=== PATIENT | male | born 1950 | race Caucasian/White ===

== ENCOUNTER 2017-06-07 10:42 | Day surgery (SDC) | payer MEDICARE ==
[2017-06-04 18:06] VITALS: BMI 23.8
[~2017-06-07 10:42] MED LIST: ALBUTEROL NEB (CONC) 2.5 MG/0.5 ML INHALATION ONE; ATROPINE SULFATE 0.4 MG/ML 1 ML VIAL IM ONE; LACTATED RINGERS 1,000 ML IV ONE; LACTATED RINGERS 1,000 ML IV SCH; LIDOCAINE 1% 20 ML VIAL (10MG/ML) FOR IV START INTRADERMA PRN; LIDOCAINE 2% (PF) 20 MG/ML 10ML INHALATION ONE
[2017-06-07 11:17] VITALS: RESP 18; TEMP 97.9
[2017-06-07] MEDS ORDERED: LIDOCAINE 1% INJ 10MG/ML (20 ML MDV) ONE (11:56)
[2017-06-07] MEDS ORDERED: GLYCOPYRROLATE 0.2 MG/ML 2 ML VIAL ONE (11:56)
[2017-06-07] MEDS ORDERED: KETAMINE 10 MG/ML 20 ML VIAL ONE (11:56)
[2017-06-07] MEDS ORDERED: MIDAZOLAM 2 MG/2 ML VIAL ONE (11:56)
[2017-06-07] MEDS ORDERED: PROPOFOL 10 MG/ML 20 ML VIAL IV ONE (11:56)
[2017-06-07] MEDS ORDERED: fentaNYL (PF) 50 MCG/ML 2 ML AMP ONE (11:56)
[2017-06-07] MEDS ORDERED: LIDOCAINE 2% INJ 20 MG/ML INTRATRACH ONE (12:11)
[2017-06-07 12:57] VITALS: BP 126/78; PULSE 76
[2017-06-07 15:06] LABS: RBC, Body Fluid 4445 /uL
--- NOTE | 2017-06-07 15:54 | PCN ---
PROCEDURE PERFORMED: Bronchoscopy, airway examination, therapeutic lavage, BAL. PREOP DIAGNOSIS: Retained secretions, severe asthma. POSTOP DIAGNOSIS: Retained secretions, severe asthma. The patients procedure was done in room number one. There was general anesthesia and unconscious sedation was provided by the FORENSIC SOCIAL WORKER, Kenzie Moy. The procedure was done by myself and Dr. Summer Nazario. We did a BAL right middle lobe. There was informed consent. There was universal time out After the patient was adequately sedated and being fully monitored. Bronchoscope was inserted into the left nostril. It passed through the left nasopharynx into the oropharynx and into the hypopharynx. The hypopharyngeal structures including anterior commissure, true chords, false chords, arytenoids , piriform sinuses, right and left vallecula, epiglottis all appear normal. There was some secretions noted to be pooling in the hypopharynx. After topicalization,the bronchoscope was pushed through the glottic opening into the trachea. Trachea appeared relatively normal. There was a saber sheath appearance to the trachea. Tracheocarina was sharp. Secretion were suctioned from the trachea. They were purulent looking. Next after topicalization of the right main stem and left mainstem, the right upper lobe and its three segments, the right middle lobe and its two segments, right lower lobe and its five segments, the left upper lobe proper and its two segments, the lingula and its two segments and the left lower lobe and its four segments all evaluated. There was moderate erythema and hyperemia. There was some mucosal friability. No dominant mass or tumor. There was significant secretions noted throughout. The opening to the right middle lobe had a fish mouth appearance suggesting the possibility of right middle lobe syndrome. The bronchoscope was wedge into the right middle lobe. BAL took place. The patient tolerated the procedure well. Afterwards, additional saline was used to suction the additional secretions. The secretions were somewhat thickened and viscid. They were removed. The bronchoscope was withdrawn. There were no immediate complications. NATE
== END 2017-06-07 13:29 | disposition home or self-care (01) ==
LOC: ORWHC2ENDO 10:42
PROVIDERS: ATTEND Internal Medicine Critical Care Medicine
DX: J45.909 Unspecified asthma, uncomplicated (principal); J44.9 Chronic obstructive pulmonary disease, unspecified; J47.9 Bronchiectasis, uncomplicated; F17.200 Nicotine dependence, unspecified, uncomplicated; K21.9 Gastro-esophageal reflux disease without esophagitis; G47.33 Obstructive sleep apnea (adult) (pediatric); Z79.899 Other long term (current) drug therapy
CPT/HCPCS: 94640; 87798 ×4; 87496; 87498; 87529 ×2; 88108; 88305; 89050; 87252; 87502 ×2; 87070; 87205; 87116; 87102; 87206; 31624; J2001 ×3; J2250; J0461; J3010; J2704

== ENCOUNTER 2018-05-10 06:39 | Day surgery (SDC) | payer MEDICARE ==
[2018-05-06 11:55] VITALS: BMI 23.8
[~2018-05-10 06:39] MED LIST changes: -ALBUTEROL NEB (CONC) 2.5 MG/0.5 ML INHALATION ONE; -ATROPINE SULFATE 0.4 MG/ML 1 ML VIAL IM ONE; -LACTATED RINGERS 1,000 ML IV ONE; -LIDOCAINE 2% (PF) 20 MG/ML 10ML INHALATION ONE
[2018-05-10 07:11] VITALS: TEMP 98.2
[2018-05-10 07:18] LABS: Glucose,Whole Blood 99 mg/dL (75-99)
[2018-05-10] MEDS ORDERED: LIDOCAINE 1% INJ 10MG/ML (20 ML MDV) ONE (07:45)
[2018-05-10] MEDS ORDERED: PROPOFOL 10 MG/ML 20 ML VIAL IV ONE (07:45)
--- NOTE | 2018-05-10 07:51 | P.GSHP ---
History of Present Illness H&P Date: 05/10/18 Chief Complaint: Colon cancer screening Patient is here today for colonoscopy. Last colonoscopy 7 years ago. He is somewhat concerned his bowel prep may not be adequate. Denies rectal bleeding or melena. No family history of colon cancer. Past Medical History Past Medical History: COPD, GERD/Reflux, Musculoskeletal Disorder, Osteoarthritis (OA), Prostate Disorder, Sleep Apnea/CPAP/BIPAP Additional Past Medical History / Comment(s): HX OF DIVERTICULITIS. CHRONIC BACK PAIN, DDD; HAS NERVE DAMAGE. USES C-PAP MACHINE. "HAS ALOT OF FLUID IN LUNGS, CONSTANT." STEROID INJ IN NECK Q3 MONTHS, LAST WAS 6 WKS AGO. History of Any Multi-Drug Resistant Organisms: None Reported Past Surgical History: Back Surgery, Hernia Repair, Orthopedic Surgery, Tonsillectomy Additional Past Surgical History / Comment(s): BACK SURGERY W/ RODS & SCREWS; NECK FUSION. MANSI KNEE PROC. VARICOCELE SURG, MANSI INGUINAL HERNIA REPAIR. BRONCHOSCOPY. COLONOSCOPIES. PAIN PROCEDURES Q3 MONTHS. Past Anesthesia/Blood Transfusion Reactions: No Reported Reaction Additional Past Alcohol Use History / Comment(s): SMOKED 1-2 PPD SINCE 1964, NOW OCC USE - LESS THAN 1 PK PER WEEK. - Past Family History Mother Family Medical History: No Reported History Medications and Allergies Home Medications Medication Instructions Recorded Confirmed Type Albuterol Updraft (Unknown Dose) 1 dose INHALATION DIRECTED PRN 04/06/1604/22 History Cholecalciferol [Vitamin D3] 1,000 unit PO DAILY 04/06/16 05/10/18 History Citalopram Hydrobromide [CeleXA] 20 mg PO PC-LUNCH 04/06/16 05/10/18 History Ferrous Sulfate [Feosol] 325 mg PO 1200 04/06/16 05/10/18 History Mometasone/Formoterol [Dulera 200 2 puff INHALATION BID 04/06/16 05/10/18 History Mcg/5 Mcg Inhaler] Montelukast [Singulair] 10 mg PO HS PRN 04/06/16 05/10/18 History Multivitamins, Thera [Multivitamin] 0.5 tab PO DAILY 04/06/16 05/10/18 History Pantoprazole Sodium [Protonix] 40 mg PO AC-SUPPER 04/06/16 05/10/18 History Psyllium Husk (with Sugar) 6 gm PO DAILY PRN 04/06/16 05/10/18 History [Metamucil Powder] Voltaren Topical Cream 1 applic TOPICAL DIRECTED PRN 04/06/16 05/10/18 History fentaNYL 50MCG/HR PATCH [Duragesic 50 mcg TRANSDERM Q72H 04/06/16 05/10/18 History 50Mcg/Hr Patch] Albuterol Sulfate [Proair Hfa] 1 - 2 puff INHALATION Q6HR PRN 06/04/17 05/10/18 History Allergies Allergy/AdvReac Type Severity Reaction Status Date / Time No Known Allergies Allergy Verified 05/06/18 11:29 Surgical - Exam Vital Signs Temp Pulse Resp BP Pulse Ox 98.2 F 76 14 134/79 97 05/10/18 07:09 05/10/18 07:09 05/10/18 07:09 05/10/18 07:09 05/10/18 07:09 Assessment and Plan (1) Colon cancer screening Narrative/Plan: Will proceed with colonoscopy at this time. Current Visit: Yes Status: Acute Code(s): Z12.11 - ENCOUNTER FOR SCREENING FOR MALIGNANT NEOPLASM OF COLON SNOMED Code(s): 392104934
--- NOTE | 2018-05-10 08:11 | P.PCN ---
Date of Procedure: 05/10/18 Procedure(s) Performed: PREOPERATIVE DIAGNOSIS: Colon cancer screening POSTOPERATIVE DIAGNOSIS: Descending colon polyp, diverticulosis, poor prep PROCEDURE: Colonoscopy with snare polypectomy ANESTHESIA: MAC SURGEON: Kenneth Lerner M.D. SPECIMENS: Polyp ENDOSCOPIC PROCEDURE: The patient was placed on the endoscopy table in the left decubitus position. The Olympus colonoscope was inserted into the anus and passed under direct visualization to the base of the cecum. The appendiceal orifice was visualized. From that point the scope was slowly withdrawn inspecting all surfaces carefully. There were no neoplastic inflammatory or polypoid lesions throughout the cecum, ascending, and transverse colon. In the descending colon a small polyp was removed using the snare technique. The remainder of the descending sigmoid and rectum appeared normal. There was mild left-sided diverticulosis present. Overall the patient' s prep was suboptimal with retained liquid and semisolid stool seen scattered throughout. I would estimate that approximately 60% of the mucosal surfaces were visualized. Digital rectal examination was normal. The patient was taken to the recovery room in stable condition per anesthesia guidelines. RECOMMENDATIONS: Await biopsy results. Consider short-term follow-up colonoscopy.
[2018-05-10 08:15] VITALS: RESP 16
[2018-05-10 08:32] VITALS: BP 106/68; PULSE 72
== END 2018-05-10 09:28 | disposition home or self-care (01) ==
LOC: ORWHC2ENDO 06:39
PROVIDERS: ATTEND Surgery
DX: Z12.11 Encounter for screening for malignant neoplasm of colon (principal); K63.5 Polyp of colon; K57.30 Diverticulosis of large intestine without perforation or abscess without bleeding; J44.9 Chronic obstructive pulmonary disease, unspecified; K21.9 Gastro-esophageal reflux disease without esophagitis; G47.30 Sleep apnea, unspecified; M19.90 Unspecified osteoarthritis, unspecified site; M79.9 Soft tissue disorder, unspecified; N42.9 Disorder of prostate, unspecified; G89.29 Other chronic pain; M54.9 Dorsalgia, unspecified; F17.210 Nicotine dependence, cigarettes, uncomplicated; Z99.89 Dependence on other enabling machines and devices; Z79.899 Other long term (current) drug therapy
CPT/HCPCS: 88305; 45385; J2001; J2704

== ENCOUNTER → 2019-01-27 | Outpatient (CLI) | payer MEDICARE ==
--- NOTE | 2019-01-28 08:36 | XR ---
EXAMINATION TYPE: XR chest 2V DATE OF EXAM: 01/27/2019 COMPARISON: 12/09/2018 TECHNIQUE: PA and lateral views submitted. HISTORY: Chest pain FINDINGS: The lungs are clear and there is no pneumothorax, pleural effusion, or focal pneumonia. Hyperinflat ion suggests COPD. Arthropathy of the shoulders. Linear density right lung base most typical atelecta sis or scar. Hypertrophic and degenerative change of the spine. IMPRESSION: 1. Correlate for COPD.
== END ==
LOC: RADXRMAIN 16:06
PROVIDERS: ATTEND Family Medicine
DX: R07.9 Chest pain, unspecified (principal)
CPT/HCPCS: 71046

== ENCOUNTER → 2019-01-30 | Outpatient (CLI) | payer MEDICARE ==
--- NOTE | 2019-01-31 08:17 | CT ---
EXAMINATION TYPE: CT abdomen pelvis wo con DATE OF EXAM: 01/30/2019 HISTORY: Left flank pain x 1 week, with hematuria. CT DLP: 264.9 mGycm. Automated Exposure Control for Dose Reduction was Utilized. TECHNIQUE: CT scan of the abdomen and pelvis is performed without oral or IV contrast. COMPARISON: NONE FINDINGS: Within the limitations of a non-contrast study, the following observations are made. LUNG BASES: No significant abnormality is appreciated. LIVER/GB: There is 1.0 cm round low dense lesion axial image 22 felt to reflect simple thin-walled cy st. Dependent density in gallbladder is consistent with small stones and/or gallbladder sludge. No wa ll thickening or surrounding inflammatory changes are present. PANCREAS: Mild generalized fat replaced atrophy with some scattered glandular calcifications involvin g body and tail. More severe fat replaced atrophy involving head and uncinate process noted. SPLEEN: No significant abnormality is seen. ADRENALS: Nonspecific low dense thickening to both adrenal glands favors benign hyperplasia. KIDNEYS: No renal calculi or hydronephrosis is evident bilaterally. Bladder wall is perhaps mildly th ickened anteriorly up to 5 to 6 mm, cannot exclude acute cystitis, correlate clinically. No intralumi nal calculus is present. BOWEL: Evaluation bowel is suboptimal secondary to lack of enteric contrast. Stomach is poorly disten ded and thus suboptimally evaluated. Moderate gastric wall thickening is felt present. There is promi nence of fecal material in the transverse colon there is moderate wall thickening involving the right colon. There are diverticula in the left and sigmoid colon most prominent in the sigmoid colon witho ut evidence for acute diverticulitis. GENITAL ORGANS: No gross abnormality seen. LYMPH NODES: No greater than 1cm abdominal or pelvic lymph nodes are appreciated. OSSEOUS STRUCTURES: There is postsurgical change lower lumbar spine with posterior interpedicular amanda s and screws transfixing L4-S1 levels. There is grade 2 anterolisthesis of L5 on S1 measured 1.5 cm s agittal image 59. Advanced disc space narrowing L5-S1 level is present. There is slight grade 1 retro listhesis L4 on L5 with mild to moderate disc space narrowing most prominent posteriorly. There is mo derate multilevel anterior and lateral spurring in the thoracolumbar spine. OTHER: Numerous coils from sports hernia repair surgery overlying the pubic symphysis. There is moder ate calcified plaque of aorta extending into branch vessels. IMPRESSION: 1. No renal stones or hydronephrosis is seen bilaterally. Possible acute cystitis, correlate clinical ly. No suspicious finding seen to account for patient's symptoms of hematuria otherwise. If symptoms persist from investigation with CT urogram may be warranted. 2. Possible moderate gastritis. Possible multifocal colitis. Correlate clinically.
== END | disposition home or self-care (01) ==
LOC: RADCTMAIN 16:05
PROVIDERS: ATTEND Family Medicine
DX: R10.84 Generalized abdominal pain (principal); R10.32 Left lower quadrant pain; R31.9 Hematuria, unspecified
CPT/HCPCS: 74176

== ENCOUNTER 2019-02-05 20:01 | Emergency (ER) | payer MEDICARE ==
[2019-02-05 20:07] VITALS: RESP 20; TEMP 99.1
[2019-02-05] MEDS ORDERED: SODIUM CHLORIDE 0.9% 1,000 ML IV STA (20:29)
[2019-02-05] MEDS ORDERED: MIDAZOLAM 1 MG/ML 5 ML VIAL IV STA (20:29)
--- NOTE | 2019-02-05 20:35 | ED ---
General Adult HPI - General Chief complaint: Neck Pain/Injury Stated complaint: Neck pain Time Seen by Provider: 02/05/19 20:10 Source: patient Mode of arrival: ambulatory Limitations: no limitations - History of Present Illness Initial comments: Dictation was produced using [employer] dictation software. please excuse any grammatical, word or spelling errors. Chief Complaint: 68-year-old male with past medical history cervical fusion presents with stiff neck. History of Present Illness: 68-year-old male. He states that he has history of cervical fusion. Patient has history of neck pain in the past. He states his neck stiffness is similar however this time is much more severe. He locates his pain to his lower occiput area. Patient has any fever, chills or night sweats. Patient sees a pain specialist regarding this. He gets cervical epidural injections for and control. Patient states over the last 48 hours his stiffness has been getting worse. Patient states she has difficulty turning and moving his neck around. Patient has no other complaints at this time. Denies any neuro deficits. The ROS documented in this emergency department record has been reviewed and confirmed by me. Those systems with pertinent positive or negative responses have been documented in the HPI. All other systems are other negative and/or noncontributory. PHYSICAL EXAM: General Impression: Alert and oriented x3, acute distress secondary to pain HEENT: Normocephalic atraumatic, extra-ocular movements intact, pupils equal and reactive to light bilaterally, mucous membranes moist, tenderness to palpation over the bilateral occipital areas just medial to the mastoid processes. Pain is reproduced with palpation and ranging of the neck Cardiovascular: Heart regular rate and rhythm, S1&S2 audible, no murmurs, rubs o r gallops Chest: Lungs clear to auscultation bilaterally, no rhonchi, no wheeze, no rales Abdomen: Bowel sounds present, abdomen soft, non-tender, non-distended, no organomegaly Musculoskeletal: Pulses present and equal in all extremities, no peripheral edema Motor: no focal deficits noted Neurological: CN II-XII grossly intact, no focal motor or sensory deficits noted Skin: Intact with no visualized rashes Psych: Normal affect and mood ED course: 68-year-old male with past medical history of chronic neck pain and cervical neck fusion presents with neck stiffness. Vital signs upon arrival are within acceptable limits. Laboratory evaluation obtained. CBC, metabolic panel is grossly unremarkable. Mild excessive 11.9 likely secondary to stress. Patient given Versed and intravenous fluids. Patient is observed in emergency department for several hours. He is reevaluated and found to be improved. Patient given prescription for Versed by mouth to take when necessary muscle spasms. Patient clinical presentation consistent with cervical strain. Patient agreeable to discharge. He still to follow-up with his cervical hiv cts specialist upon discharge. - Related Data Home Medications Medication Instructions Recorded Confirmed Cholecalciferol [Vitamin D3] 1,000 unit PO DAILY 04/06/16 02/05/19 Mometasone/Formoterol [Dulera 200 2 puff INHALATION RT-BID 04/06/16 02/05/19 Mcg/5 Mcg Inhaler] Montelukast [Singulair] 10 mg PO HS 04/06/16 02/05/19 Multivitamins, Thera [Multivitamin] 1 tab PO DAILY 04/06/16 02/05/19 fentaNYL 50MCG/HR PATCH [Duragesic 1 patch TRANSDERM Q72H 04/06/16 02/05/19 50Mcg/Hr Patch] ALPRAZolam [Xanax] 0.5 mg PO HS 02/05/19 02/05/19 Previous Rx's Medication Instructions Recorded Diazepam [Valium] 5 mg PO Q8H PRN 3 Days #9 tab 02/05/19 Allergies Allergy/AdvReac Type Severity Reaction Status Date / Time No Known Allergies Allergy Verified 05/06/18 11:29 Review of Systems ROS Statement: Those systems with pertinent positive or pertinent negative responses have been documented in the HPI. ROS Other: All systems not noted in ROS Statement are negative. Past Medical History Past Medical History: COPD, GERD/Reflux, Hypertension, Musculoskeletal Disorder, Osteoarthritis (OA), Prostate Disorder, Sleep Apnea/CPAP/BIPAP Additional Past Medical History / Comment(s): HX OF DIVERTICULITIS. CHRONIC BACK PAIN. USES C-PAP MACHINE. HX HTN, OFF RX NOW. HAVING ALOT OF FLUID IN LUNGS. History of Any Multi-Drug Resistant Organisms: None Reported Past Surgical History: Back Surgery, Hernia Repair, Tonsillectomy Additional Past Surgical History / Comment(s): BACK SURGERY W/ RODS & SCREWS; NECK FUSION. VARIOCELE SURG, MANSI INGUINAL HERNIA REPAIR. BRONCHOSCOPY. Past Anesthesia/Blood Transfusion Reactions: No Reported Reaction Past Psychological History: Anxiety, Depression Smoking Status: Current every day smoker - Past Family History Mother Family Medical History: No Reported History General Exam Limitations: no limitations Course Vital Signs 02/05/19 20:03 Temperature 99.1 F Pulse Rate 81 Respiratory 20 Rate Blood Pressure 174/83 O2 Sat by Pulse 96 Oximetry Medical Decision Making - Lab Data Result diagrams: 02/05/19 20:33 02/05/19 20:33 Lab Results 02/05/19 02/05/19 Range/Units 20:33 20:33 WBC 11.9 H (3.8-10.6) k/uL RBC 5.41 (4.30-5.90) m/uL Hgb 14.9 (13.0-17.5) gm/dL Hct 45.8 (39.0-53.0) % MCV 84.5 (80.0-100.0) fL MCH 27.5 (25.0-35.0) pg MCHC 32.6 (31.0-37.0) g/dL RDW 14.0 (11.5-15.5) % Plt Count 174 (150-450) k/uL Neutrophils % 66 % Lymphocytes % 25 % Monocytes % 5 % Eosinophils % 2 % Basophils % 0 % Neutrophils # 7.8 H (1.3-7.7) k/uL Lymphocytes # 3.0 (1.0-4.8) k/uL Monocytes # 0.6 (0-1.0) k/uL Eosinophils # 0.2 (0-0.7) k/uL Basophils # 0.1 (0-0.2) k/uL Sodium 139 (137-145) mmol/L Potassium 4.3 (3.5-5.1) mmol/L Chloride 105 (98-107) mmol/L Carbon Dioxide 27 (22-30) mmol/L Anion Gap 7 mmol/L BUN 8 L (9-20) mg/dL Creatinine 0.59 L (0.66-1.25) mg/dL Est GFR (CKD-EPI)AfAm >90 (>60 ml/min/1.73 sqM) Est GFR (CKD-EPI)NonAf >90 (>60 ml/min/1.73 sqM) Glucose 103 H (74-99) mg/dL Calcium 9.0 (8.4-10.2) mg/dL Magnesium 2.2 (1.6-2.3) mg/dL Disposition Clinical Impression: Strain of neck muscle Disposition: HOME SELF-CARE Condition: Good Instructions (If sedation given, give patient instructions): Cervical Strain (ED) Prescriptions: Diazepam [Valium] 5 mg PO Q8H PRN 3 Days #9 tab PRN Reason: neck pain Is patient prescribed a controlled substance at d/c from ED?: Yes If prescribed controlled substance>3 days was MAPS reviewed?: Prescribed <3 Days Referrals: Carroll Monterroso MD [Primary Care Provider] - 1-2 days Time of Disposition: 21:52
[2019-02-05 21:06] LABS: Anion Gap 7 mmol/L; Blood Urea Nitrogen 8 mg/dL (9-20); Carbon Dioxide 27 mmol/L (22-30); Chloride 105 mmol/L (98-107); Glucose 103 mg/dL (74-99); Magnesium 2.2 mg/dL (1.6-2.3); Potassium 4.3 mmol/L (3.5-5.1); Sodium 139 mmol/L (137-145)
[2019-02-05 21:28] LABS: Basophils # (A) 0.1 k/uL (0-0.2); Basophils % (A) 0 %; Eosinophils # (A) 0.2 k/uL (0-0.7); Eosinophils % (A) 2 %; HCT 45.8 % (39.0-53.0); HGB 14.9 gm/dL (13.0-17.5); Lymphocytes % (A) 25 %; MCH 27.5 pg (25.0-35.0); MCHC 32.6 g/dL (31.0-37.0); MCV 84.5 fL (80.0-100.0); Mean Platelet Volume 9.6; Monocytes # (A) 0.6 k/uL (0-1.0); Monocytes % (A) 5 %; Neutrophils # (A) 7.8 k/uL (1.3-7.7); Neutrophils % (A) 66 %; Platelet Count 174 k/uL (150-450); RBC 5.41 m/uL (4.30-5.90); WBC 11.9 k/uL (3.8-10.6)
[2019-02-05 21:59] VITALS: BP 156/92; PULSE 80
== END 2019-02-05 22:00 | disposition home or self-care (01) ==
LOC: EC 20:01
DX: S16.1XXA Strain of muscle, fascia and tendon at neck level, initial encounter (principal); J44.9 Chronic obstructive pulmonary disease, unspecified; G47.30 Sleep apnea, unspecified; F41.9 Anxiety disorder, unspecified; F32.9 Major depressive disorder, single episode, unspecified; F17.200 Nicotine dependence, unspecified, uncomplicated; Z79.51 Long term (current) use of inhaled steroids; Z79.899 Other long term (current) drug therapy; Z98.1 Arthrodesis status; X58.XXXA Exposure to other specified factors, initial encounter
CPT/HCPCS: 36415; 80048; 83735; 85025; 99283; 96374; 96361; J2250

== ENCOUNTER → 2019-04-09 | Outpatient (CLI) | payer MEDICARE ==
--- NOTE | 2019-04-09 12:20 | MR ---
EXAMINATION TYPE: MR brain wo/w con DATE OF EXAM: 04/09/2019 COMPARISON: 04/17/2011 HISTORY: Memory loss CONTRAST: Performed utilizing 6.5 mL intravenous Gadavist gadolinium contrast. TECHNIQUE: Multiplanar, multiecho imaging on a 3.0 Yeni magnet is performed through the brain. Stud y is performed within 24 hours of arrival to the hospital. The craniovertebral junction is normal. The pituitary is normal. Optic chiasm as visualized is norm al. Normal vascular flow voids are present Diffusion-weighted imaging is performed. No abnormal hyperintensity is present to suggest an acute i ntracranial infarct or acute ischemic change. There are scattered punctate areas of hyperintensity on T2 and Inversion Recovery weighted sequences which are non-specific but can be related to microvascular ischemic changes. There may be mild progre ssion from the comparison 2010. Ventricles and sulci are appropriate for the patient age. There is mild mucosal thickening within the right maxillary sinus and through ethmoid air cells. Mast oid air cells are clear No abnormal enhancement is evident. IMPRESSIONS: 1. Scattered punctate nonspecific deep white matter changes which can be on the basis of chronic whit e matter ischemia. This is slightly progressive from 2010.
== END | disposition home or self-care (01) ==
LOC: RADMRIMAIN 11:14
PROVIDERS: ATTEND Psychiatry & Neurology Neurology
DX: R90.82 White matter disease, unspecified (principal)
CPT/HCPCS: 70553; A9585

== ENCOUNTER → 2019-09-11 | Outpatient (CLI) | payer MEDICARE ==
--- NOTE | 2019-09-11 12:55 | XR ---
Left elbow HISTORY: Left elbow pain 3 views the left elbow Bone mineralization, joint spaces and alignment are maintained. No evident joint effusion. Mild jillian nal spurring present at the coronoid process. Small ossific density noted at the origin level of the common extensor tendon may represent calcific tendinitis, seen on the oblique view. No evident joint effusion. IMPRESSION: Mild osteoarthritic change. Additional findings above.
== END | disposition home or self-care (01) ==
LOC: RADXRMAIN 11:19
PROVIDERS: ATTEND Family Medicine
DX: M19.022 Primary osteoarthritis, left elbow (principal)

== ENCOUNTER 2020-07-30 11:43 | Emergency (ER) | payer MEDICARE ==
[2020-07-30 11:56] VITALS: RESP 18
[2020-07-30] MEDS ORDERED: DIPH,PERTUS(ACELL)TETVAC-LF 0.5 ML VIAL IM ONE (12:08)
--- NOTE | 2020-07-30 12:15 | ED ---
Fall HPI - General Chief Complaint: Fall Stated Complaint: fall/shoulder & elbow pain Time Seen by Provider: 07/30/20 11:57 Source: patient, RN notes reviewed Mode of arrival: wheelchair Limitations: physical limitation - History of Present Illness Initial Comments: 70-year-old male presents emergency Department chief complaint of fall. Patient states he fell last night off 2 steps up a ladder. Patient denies head injury no loss consciousness. Patient fell onto his left shoulder left elbow. Patient states he has mild left hip and has no difficulty walking states that has no pain with range of motion. Patient states that his tetanus is not up-to-date. Patient offers no complaints no neck pain no back pain. - Related Data Home Medications Medication Instructions Recorded Confirmed Cholecalciferol [Vitamin D3] 1,000 unit PO DAILY 04/06/16 02/05/19 Mometasone/Formoterol [Dulera 200 2 puff INHALATION RT-BID 04/06/16 02/05/19 Mcg/5 Mcg Inhaler] Montelukast [Singulair] 10 mg PO HS 04/06/16 02/05/19 Multivitamins, Thera [Multivitamin] 1 tab PO DAILY 04/06/16 02/05/19 fentaNYL 50MCG/HR PATCH [Duragesic 1 patch TRANSDERM Q72H 04/06/16 02/05/19 50Mcg/Hr Patch] ALPRAZolam [Xanax] 0.5 mg PO HS 02/05/19 02/05/19 Previous Rx's Medication Instructions Recorded Diazepam [Valium] 5 mg PO Q8H PRN 3 Days #9 tab 02/05/19 Ibuprofen [Motrin] 600 mg PO Q8HR PRN #20 tab 07/30/20 Allergies Allergy/AdvReac Type Severity Reaction Status Date / Time No Known Allergies Allergy Verified 07/30/20 11:56 Review of Systems ROS Statement: Those systems with pertinent positive or pertinent negative responses have been documented in the HPI. ROS Other: All systems not noted in ROS Statement are negative. Past Medical History Past Medical History: COPD, GERD/Reflux, Hypertension, Musculoskeletal Disorder, Osteoarthritis (OA), Prostate Disorder, Sleep Apnea/CPAP/BIPAP Additional Past Medical History / Comment(s): HX OF DIVERTICULITIS. CHRONIC BACK PAIN. USES C-PAP MACHINE. HX HTN, OFF RX NOW. HAVING ALOT OF FLUID IN LUNGS. History of Any Multi-Drug Resistant Organisms: None Reported Past Surgical History: Back Surgery, Hernia Repair, Tonsillectomy Additional Past Surgical History / Comment(s): BACK SURGERY W/ RODS & SCREWS; NECK FUSION. VARIOCELE SURG, MANSI INGUINAL HERNIA REPAIR. BRONCHOSCOPY. Past Anesthesia/Blood Transfusion Reactions: No Reported Reaction Past Psychological History: Anxiety, Depression Smoking Status: Current every day smoker Past Alcohol Use History: None Reported Past Drug Use History: Marijuana - Past Family History Mother Family Medical History: No Reported History General Exam Limitations: physical limitation General appearance: alert, in no apparent distress Head exam: Present: atraumatic, normocephalic, normal inspection Eye exam: Present: normal appearance, PERRL, EOMI. Absent: scleral icterus, conjunctival injection, periorbital swelling ENT exam: Present: normal exam, normal oropharynx, mucous membranes moist Neck exam: Present: normal inspection, full ROM. Absent: tenderness, meningismus, lymphadenopathy Respiratory exam: Present: normal lung sounds bilaterally. Absent: respiratory distress, wheezes, rales, rhonchi, stridor, chest wall tenderness Cardiovascular Exam: Present: regular rate, normal rhythm, normal heart sounds. Absent: systolic murmur, diastolic murmur, rubs, gallop, clicks GI/Abdominal exam: Present: soft, normal bowel sounds. Absent: distended, tenderness, guarding, rebound, rigid Extremities exam: Present: other (Skin tear on the left elbow, times palpation, mild swelling noted, left shoulder there is moderate swelling, tenderness with palpation, limited range of motion. Bilateral upper extremities neurovascular intact) Course Vital Signs 07/30/20 07/30/20 11:51 13:09 Temperature 98.2 F Pulse Rate 76 78 Respiratory 18 18 Rate Blood Pressure 155/82 164/92 O2 Sat by Pulse 99 97 Oximetry - Reevaluation(s) Reevaluation #1: 07/30/20 12:14 Adacel was ordered, x-rays were ordered. Medical Decision Making - Medical Decision Making X-rays reviewed no acute fracture. Patient is a skin tear left arm will be covered with antibiotics. Patient follow-up with orthopedics for probable MRI return parameters were discussed. Disposition Clinical Impression: Fall, Left shoulder strain, Skin tear of left elbow without complication Disposition: HOME SELF-CARE Condition: Stable Instructions (If sedation given, give patient instructions): Rotator Cuff Injury (ED) Additional Instructions: Please return to the Emergency Department if symptoms worsen or any other concerns. Prescriptions: Ibuprofen [Motrin] 600 mg PO Q8HR PRN #20 tab PRN Reason: Pain Is patient prescribed a controlled substance at d/c from ED?: No Referrals: Carroll Monterroso MD [Primary Care Provider] - 1-2 days Chapo Lazcano MD [STAFF PHYSICIAN] - 1-2 days Time of Disposition: 14:08
[2020-07-30] MEDS ORDERED: IBUPROFEN 600 MG TAB PO STA (12:49)
--- NOTE | 2020-07-30 14:00 | XR ---
EXAMINATION TYPE: XR shoulder complete LT DATE OF EXAM: 07/30/2020 CLINICAL HISTORY: Pain after fall TECHNIQUE: Three views of the left shoulder are obtained. COMPARISON: None. FINDINGS: There is no acute fracture/dislocation evident in the left shoulder. The acromioclavicula r joint is maintained with degenerative changes. Glenohumeral joint spaces maintained. The visualize d ribs are intact and unremarkable. IMPRESSION: There is no acute fracture or dislocation in the left shoulder.
--- NOTE | 2020-07-30 14:02 | XR ---
EXAMINATION TYPE: XR elbow complete LT DATE OF EXAM: 07/30/2020 CLINICAL HISTORY: Pain after fall TECHNIQUE: Frontal, lateral and oblique images of the left elbow are obtained. COMPARISON: Left elbow radiograph 09/11/2019 FINDINGS: There is no acute fracture/dislocation evident in the left elbow. No abnormal fat pad sig ns are seen. Mild generative spurring redemonstrated at the coronoid process. Redemonstrated small o ssific density at the common extensor tendon. The overlying soft tissue appears unremarkable. IMPRESSION: There is no acute fracture or dislocation in the left elbow.
[2020-07-30 14:32] VITALS: BP 162/94; PULSE 90; TEMP 99.5
== END 2020-07-30 14:31 | disposition home or self-care (01) ==
LOC: EC 11:43
DX: S51.012A Laceration without foreign body of left elbow, initial encounter (principal); S46.912A Strain of unspecified muscle, fascia and tendon at shoulder and upper arm level, left arm, initial encounter; G47.33 Obstructive sleep apnea (adult) (pediatric); F17.200 Nicotine dependence, unspecified, uncomplicated; F41.9 Anxiety disorder, unspecified; F32.9 Major depressive disorder, single episode, unspecified; J44.9 Chronic obstructive pulmonary disease, unspecified; Z23 Encounter for immunization; Z79.51 Long term (current) use of inhaled steroids; Z79.899 Other long term (current) drug therapy; Z99.89 Dependence on other enabling machines and devices; W11.XXXA Fall on and from ladder, initial encounter; Y92.009 Unspecified place in unspecified non-institutional (private) residence as the place of occurrence of the external cause
CPT/HCPCS: 90471; 90715; 99283

== ENCOUNTER → 2020-09-17 | Outpatient (CLI) | payer MEDICARE ==
--- NOTE | 2020-09-17 12:12 | US ---
EXAMINATION TYPE: US venous doppler duplex LE RT DATE OF EXAM: 09/17/2020 10:31 AM COMPARISON: NONE CLINICAL HISTORY: 70-year-old male R22.41. Right foot swelling SIDE PERFORMED: Right TECHNIQUE: The lower extremity deep venous system is examined utilizing real time linear array sonog katy with graded compression, doppler sonography and color-flow sonography. FINDINGS: VESSELS IMAGED: Common Femoral Vein Deep Femoral Vein Greater Saphenous Vein * Femoral Vein Popliteal Vein Small Saphenous Vein * Proximal Calf Veins (* superficial vessels) Right Leg: Negative for DVT IMPRESSION: No evidence for DVT within the right lower extremity imaged from the groin to the upper calf.
== END | disposition home or self-care (01) ==
LOC: RADUSWWP 10:18
PROVIDERS: ATTEND Family Medicine
DX: R22.41 Localized swelling, mass and lump, right lower limb (principal)

== ENCOUNTER → 2020-10-20 | Outpatient (CLI) | payer MEDICARE ==
[2020-10-20 12:00] VITALS: BP 145/82; PULSE 70; RESP 14; TEMP 98.1
--- NOTE | 2020-10-20 12:23 | P.PAINCN ---
History of Present Illness - Reason for Consult Consult date: 10/20/20 - History of Present Illness This is 70 years old male with a chronic history of severe neck pain and low back pain, he had the pain for more than 20 years, patient had lumbar laminectomy and fusion surgery done more than 10 years ago , also patient had cervical fusion surgery done several years ago, he was treated previously at different pain clinic by Dr. Mahmood, and he has done multiple pain management interventions procedure, cervical radiofrequency ablation of the medial branch at C2,C3, C4 ,C5 and bilateral , and also he had caudal epidural steroid injection with lysis of epidural adhesions, patient reported that he had good pain relief after these procedures, but currently Dr. Mahmood , left his practice and patient here today to establish his relationship with our pain clinic , patient reported that his pain is constant and localized in the low back area, radiation to the lower extremity bilaterally associated with some numbness and tingling sensation, he is able to ambulate slowly, denies any fever or night sweats but denies any change in the bowel movement or urination, he reported that his neck improved after he had RFA of the medial branch cervical area , and recently by Dr. Mahmood Past Medical History Past Medical History: COPD, GERD/Reflux, Hypertension, Musculoskeletal Disorder, Osteoarthritis (OA), Prostate Disorder, Sleep Apnea/CPAP/BIPAP Additional Past Medical History / Comment(s): Hx diverticulitis. Chronic back pain. Uses C-PAP. Hx HTN, off Rx now. Hx BPH. History of Any Multi-Drug Resistant Organisms: None Reported Past Surgical History: Back Surgery, Hernia Repair, Tonsillectomy Additional Past Surgical History / Comment(s): BACK SURGERY W/ RODS & SCREWS; Cervical FUSION. VARICOCELE SURG, MANSI INGUINAL HERNIA REPAIR. BRONCHOSCOPY. Multiple pain procedures in lower back and neck. Past Anesthesia/Blood Transfusion Reactions: No Reported Reaction Past Psychological History: Anxiety, Depression Smoking Status: Current every day smoker Past Alcohol Use History: None Reported Additional Past Alcohol Use History / Comment(s): SMOKED 1-2 PPD SINCE 1964, NOW LESS THAN 1 PK PER WEEK. Past Drug Use History: Marijuana Additional Drug Use History / Comment(s): occ use - Past Family History Mother Family Medical History: No Reported History Medications and Allergies Home Medications Medication Instructions Recorded Confirmed Type Cholecalciferol [Vitamin D3] 1,000 unit PO DAILY 04/06/16 10/19/20 History Mometasone/Formoterol [Dulera 200 2 puff INHALATION RT-BID 04/06/16 10/19/20 History Mcg/5 Mcg Inhaler] Montelukast [Singulair] 10 mg PO HS 04/06/16 10/19/20 History Multivitamins, Thera [Multivitamin] 1 tab PO DAILY 04/06/16 10/19/20 History Buprenorphine [Buprenorphine 20 1 patch TRANSDERM Q7D 10/19/20 10/19/20 History MCG/HR] Citalopram Hydrobromide 20 mg PO 1200 10/19/20 10/19/20 History [Citalopram HBr] Diclofenac Sodium [Voltaren 2 gm TOPICAL DIRECTED PRN 10/19/20 10/19/20 History Arthritis Pain 1% Gel] Gabapentin [Neurontin] 300 - 600 mg PO Q8H 10/19/20 10/19/20 History Levofloxacin [Levaquin] 500 mg PO DIRECTED 10/19/20 10/19/20 History Omeprazole [PriLOSEC] 40 mg PO HS 10/19/20 10/19/20 History Allergies Allergy/AdvReac Type Severity Reaction Status Date / Time No Known Allergies Allergy Verified 10/19/20 10:56 Physical Exam Vitals: Vital Signs Temp Pulse Resp BP Pulse Ox 10/20/20 11:56 98.1 F 70 14 145/82 98 Physical Examinations : -Constitutiona : Cooperative , not in acute distress . -HEENT : nech : supple , no Lymphadenopathy , normal thyroid size . : eyes : no ptosis , no icterus, no photophobia . - neurologic : Cranial nerve II to XII intact , no focal neurological deffecit . -psychatric : alert , oriented X 3 , appropriate affect , intact judgment and insight . -Lymphatic : no Lymphadenopathy . - musculoskeltal : Cervical Spine motor stregnth in the deltoid and biceps, normal right side , normal Left side motor stregnth biceps and the wrist extensors normal right side ,normal left side . motor stregnth in the triceps muscle . normal Right side , normal Left side deep tendon reflexes normal at the biceps , normal at Brachioradialis , normal at triceps. cervical facet loading test= Positive Bilaterally Spurling test= positive bilaterally. Neck distraction test= positive bilaterally. Jose Ramon sign= positive bilaterally. Lumber spine moter stegnth lower extremities ,thigh and legs 5/5 Right side , 5/5 Left side deep tendon reflexes : normal Knee Jerk , normal ankle Jerk lumber facet Loading Test =positive Right , positive Left Range of motion of the lumbar spine Flexion 30 degrees, extension 10 degrees strait leg raising test = positive at degree Fabere test= positive Right , and positive LT . Sever tenderness over the Sacroiliac joint on the Right , and Left sides Gaenslen test= positive right ,and positive left . Seated flexion test= positive right ,and positive Left . Results Comments: MRI of the cervical spine multilevel cervical degenerative disc disease and C5 6 fusion C6 7 fusion from multilevel cervical spinal stenosis at C3 4 C4 5 and C5 6 C6 7 Assessment and Plan Plan: Assessment and plan=1-postlaminectomy pain syndrome lumbar area. 2-postlaminectomy pain syndrome and cervical area. 3-cervical spondylosis with cervical facet arth ropathy without myelopathy. 4-cervical degenerative disc disease. The patient reported that most of his pain currently in the lumbar area, and he wished to focus treatment on the lumbar, patient could benefit from caudal epidural steroid injection with lysis of epidural adhesions under fluoroscopy guidance, in the future if he has pain he could be a candidate to refrain of the medial branch cervical area, patient had no diagnostic tests done over the last several years, we will order MRI of the lumbar spine with and without contrast to evaluate the lumbar spine Time with Patient: Greater than 30 PQRS Measure Charge Sheet Measure #130: Documentation of Current Meds in Medical Chart: Patient's medications documented in chart Measure #226: Tobacco Use: Screen & Cessation Intervention: Pt screened for tobacco use AND intervention given Measure #111: Pneumonia Vaccination: Pneumococcal vaccine administered or previously received Measure #47: Advance Care Plan: Advance care planning discussed & documented, pt chose/unable to give Measure #412: Opioid Treatment Agreement: No documentation of signed opioid treatment agreement Measure #408: Opioid Therapy Follow-up Evaluation: Patient had NO f/u eval minimum every 3 months during opioid therapy Measure #317: Preventitive Care & Scrn High Bld Press & F/U: Pre-hypertensive or hypertensive BP documented, pt will f/u with PCP Measure #128: Body Mass Index (BMI) Screening & Follow-up: BMI documented ABOVE normal parameters - f/u documented Measure #131: Pain Assessment & Follow-up: Pain positive & plan documented, Follow-up scheduled Measure #431: Unhealthy Alcohol Use Preventative Care & Scrn: Patient not identified as an unhealthy alcohol user PQRS Narrative: Smoking Status Current every day smoker Blood Pressure 145/82 Pain Intensity [Lower Back] 5 Scale Used Numeric (1 - 10) Hx Alcohol Use (MH) No Home Medications: Ambulatory Orders Cholecalciferol [Vitamin D3] 1,000 unit PO DAILY 04/06/16 Mometasone/Formoterol [Dulera 200 Mcg/5 Mcg Inhaler] 2 puff INHALATION RT-BID 04/06/16 Montelukast [Singulair] 10 mg PO HS 04/06/16 Multivitamins, Thera [Multivitamin] 1 tab PO DAILY 04/06/16 Buprenorphine [Buprenorphine 20 MCG/HR] 1 patch TRANSDERM Q7D 10/19/20 Citalopram Hydrobromide [Citalopram HBr] 20 mg PO 1200 10/19/20 Diclofenac Sodium [Voltaren Arthritis Pain 1% Gel] 2 gm TOPICAL DIRECTED PRN 10/19/20 Gabapentin [Neurontin] 300 - 600 mg PO Q8H 10/19/20 Levofloxacin [Levaquin] 500 mg PO DIRECTED 10/19/20 Omeprazole [PriLOSEC] 40 mg PO HS 10/19/20
== END | disposition home or self-care (01) ==
LOC: PNWHC3 10:47
PROVIDERS: ATTEND Specialist
DX: M96.1 Postlaminectomy syndrome, not elsewhere classified (principal); M47.812 Spondylosis without myelopathy or radiculopathy, cervical region; M50.30 Other cervical disc degeneration, unspecified cervical region; F17.200 Nicotine dependence, unspecified, uncomplicated; Z79.891 Long term (current) use of opiate analgesic; Z79.899 Other long term (current) drug therapy
CPT/HCPCS: 99211

== ENCOUNTER → 2020-10-20 | Outpatient (CLI) | payer MEDICARE ==
--- NOTE | 2020-10-21 08:02 | MR ---
EXAMINATION TYPE: MR lumbar spine wo/w con DATE OF EXAM: 10/20/2020 COMPARISON: MRI lumbar spine April 15, 2011. CT abdomen and pelvis January 30, 2019 HISTORY: LBP, LLE radic, postlaminectomy syndrome. Surgery 25 years ago. TECHNIQUE: Multiplanar, multisequence images of the lumbar spine is performed without and with IV contrast, util izing 7 mL intravenous Gadavist FINDINGS: Sagittal images of the lumbar spine redemonstrate artifact from posterior interpedicular ro ds and screws at the L4-S1 levels. There is stable grade 2 anterolisthesis L5 on S1. Vertebral body h eights are maintained. Multilevel disc desiccation and fairly moderate disc space narrowing. Advanced disc space narrowing L5-S1 level redemonstrated. The conus medullaris remains normal in position and signal ending mid L1 level. Moderate multilevel spurring. Heterogeneity with Modic type II endplate changes L5-S1 level redemonstrated. No suspicious postcontrast enhancement. Posterior disc herniation T11-T12 sagittal image 9 new from prior MRI. Axial images at T12-L1 level show moderate broad-based posterior disc protrusion effacing anterior th ecal sac with mild facet arthropathy causing mild right and moderate left-sided anterior inferior wesley ral foraminal narrowing. Findings progressed from prior MRI. Axial images at the L1-L2 level show moderate to advanced broad disc bulge effacing the anterior thec al sac with mild to moderate facet arthropathy. There is mild to moderate left greater than right leticia ateral neural foraminal narrowing. Axial images at L2-L3 level show moderate broad disc bulge with broad-based right paracentral disc pr otrusion effacing anterior thecal sac. There is mild facet arthropathy bilaterally. There is mild to moderate bilateral neural foraminal narrowing. Axial images at L3-L4 level show moderate broad disc bulge effacing anterior thecal sac. There is mod erate bilateral neural foraminal narrowing. Moderate facet arthropathy bilaterally. Asymmetric mild t o moderate right-sided neural foraminal narrowing. Axial images at L4-L5 level show posterior decompression. Artifact from stabilization STIR surgery. S randy canal preserved. Patent bilateral neural foramina. Axial images at L5-S1 level is artifact from stabilization surgery. There is posterior decompression. Spinal canal preserved. Suboptimal evaluation of bilateral neural foramina noted. No suspicious incidental retroperitoneal finding. IMPRESSION: Postsurgical change L4-S1 level redemonstrated. Stable alignment with grade 2 anterolisth esis L5 on S1. Successful posterior decompression redemonstrated. Increasing multilevel degenerative changes in the upper to mid lumbar spine as detailed above.
== END | disposition home or self-care (01) ==
LOC: RADMRIMAIN 18:34
PROVIDERS: ATTEND Specialist
DX: M43.16 Spondylolisthesis, lumbar region (principal); M47.816 Spondylosis without myelopathy or radiculopathy, lumbar region; M96.1 Postlaminectomy syndrome, not elsewhere classified
CPT/HCPCS: 72158; A9585

== ENCOUNTER → 2020-11-16 | Day surgery (SDC) | payer MEDICARE ==
[2020-11-10 15:16] VITALS: BMI 25.7
[~2020-11-16] MED LIST changes: +IOPAMIDOL M200 10 ML VIAL ONE; -LIDOCAINE 1% 20 ML VIAL (10MG/ML) FOR IV START INTRADERMA PRN; +MIDAZOLAM 2 MG/2 ML VIAL ONE; +fentaNYL (PF) 50 MCG/ML 2 ML AMP ONE; +methylPREDNISolone ACETATE 40 MG/ML 1 ML VIAL ONE
[2020-11-16 14:27] VITALS: PULSE 64; TEMP 97
--- NOTE | 2020-11-16 14:59 | P.PCN ---
Date of Procedure: 11/16/20 Procedure(s) Performed: PREOPERATIVE DIAGNOSIS: Lumbar post laminectomy syndrome. POSTOPERATIVE DIAGNOSIS: Lumbar post laminectomy syndrome. PROCEDURE: 1. Caudal epidural steroid injection under fluoroscopic guidance. (Fluoroscopy images available in the radiology department ) 2. Caudal epidurogram ANESTHESIA: Local with 1% lidocaine; 3ml for subcutaneous infiltrations and IV versed 1 mg ,and fentanyl 50 mcg EBL: None. PROCEDURE INDICATION: The patient with neuropathic pain radiating distally returns for caudal epidural steroid injection. PROCEDURE DESCRIPTION: The patient was seen and identified in the preoperative area. Risks, benefits, complications, and alternatives were discussed with the patient. The patient agreed to proceed with the procedure and signed the consent. IV was started, and vital signs were stable. Patient was taken to the OR and time out was completed. The patient was placed in the prone position on procedure table and a pillow was placed under the abdomen to reduce lumbar lordosis. The lumbosacral area was prepped and draped in the usual sterile fashion. Critical pause was taken. Vital signs were closely monitored during the procedure. Using lateral fluoroscopy the anterior-posterior plates of the sacrum were identified and the skin and deeper tissues corresponding into sacrococcygeal ligament were anesthetized using approximately 3 mL of 1% lidocaine. Then under fluoroscopy, a 3-1/2-inch 20-gauge Tuohy epidural needle was guided through the sacrococcygeal ligament, and into the epidural space. After negative aspiration, a 2 mL of Isovue 200 contrast dye was injected with excellent epidurogram. Again after negative aspiration for CSF, blood, and with no paresthesias, then Depo-Medrol 60mg, 2ml of 1% preservative free Lidocaine with 6 ml of preservative free normal saline(total of 10ml)solution was injected with washout of epidurogram. Needle was withdrawn intact. Skin was cleansed, and bandage was applied. COMPLICATIONS: None DISPOSITION / PLANS: The patient was placed in a supine position and transferred to the recovery area in a stable condition for observation and was discharged from the recovery room after meeting discharge criteria. Home discharge instructions given to the patient by the staff. The patient was reexamined prior to discharge. The patient will schedule a follow up in the clinic in 2-4 weeks.
[2020-11-16 15:26] VITALS: BP 132/75; RESP 16
--- NOTE | 2020-11-16 15:46 | FL ---
Fluoroscopy HISTORY: Pain 3 seconds fluoroscopy time supplied to the referring clinician. 2 intraoperative C-arm images docume nt the procedure. See dictated report from anesthesia.
== END ==
LOC: ORPAIN 13:47
PROVIDERS: ATTEND Specialist
DX: G89.29 Other chronic pain (principal); M54.16 Radiculopathy, lumbar region; M96.1 Postlaminectomy syndrome, not elsewhere classified; M47.812 Spondylosis without myelopathy or radiculopathy, cervical region; M50.30 Other cervical disc degeneration, unspecified cervical region; J44.9 Chronic obstructive pulmonary disease, unspecified; I10 Essential (primary) hypertension; K21.9 Gastro-esophageal reflux disease without esophagitis; M19.90 Unspecified osteoarthritis, unspecified site; G47.33 Obstructive sleep apnea (adult) (pediatric); F41.9 Anxiety disorder, unspecified; F32.9 Major depressive disorder, single episode, unspecified; N42.9 Disorder of prostate, unspecified; F17.210 Nicotine dependence, cigarettes, uncomplicated; K57.90 Diverticulosis of intestine, part unspecified, without perforation or abscess without bleeding; Z98.1 Arthrodesis status; Z90.89 Acquired absence of other organs; Z98.890 Other specified postprocedural states; Z79.899 Other long term (current) drug therapy; Z99.89 Dependence on other enabling machines and devices
CPT/HCPCS: 62323; J2250; J1030; J3010; Q9966

== ENCOUNTER → 2020-12-06 | Outpatient (CLI) | payer MEDICARE ==
[2020-12-06 09:45] VITALS: BP 137/81; PULSE 76; RESP 18; TEMP 98.5
--- NOTE | 2020-12-06 09:58 | P.PN ---
Subjective Progress Note Date: 12/06/20 This is a follow-up visit for this 70-year-old male with a chronic history of severe low back pain and severe neck pain ,he is diagnosed with failed back surgery syndrome and lumbar area and failed back surgery syndrome cervical area and cervical spondylosis with cervical facet arthropathy, recently we have done a caudal epidural steroid injection patient gets excellent pain relief, and patient previously had the RFA of the medial branch cervical area C2, C3, C4, C5 bilaterally [facility], she reported that the recent injection helped his low back pain significantly she denies any motor or sensory deficits he denies any fever or night sweats he denies any change in bowel movement or u rination Objective - Vital Signs Vital signs: Vital Signs Temp 98.5 F 12/06/20 09:39 Pulse 76 12/06/20 09:39 Resp 18 12/06/20 09:39 BP 137/81 12/06/20 09:39 Pulse Ox 97 12/06/20 09:39 - Exam -Constitutiona : Cooperative , not in acute distress . -HEENT : nech : supple , no Lymphadenopathy , normal thyroid size . : eyes : no ptosis , no icterus, no photophobia . - neurologic : Cranial nerve II to XII intact , no focal neurological deffecit . -psychatric : alert , oriented X 3 , appropriate affect , intact judgment and insight . -Lymphatic : no Lymphadenopathy . - musculoskeltal : Cervical Spine motor stregnth in the deltoid and bic eps, normal right side , normal Left side motor stregnth biceps and the wrist extensors normal right side ,normal left side . motor stregnth in the triceps muscle . normal Right side , normal Left side deep tendon reflexes normal at the biceps , normal at Brachioradialis , normal at triceps. cervical facet loading test= Positive Bilaterally Spurling test= positive bilaterally. Neck distraction test= positive bilaterally. Jose Ramon sign= positive bilaterally. Lumber spine moter stegnth lower extremities ,thigh and legs 5/5 Right side , 5/5 Left side Assessment and Plan Plan: MRI of the cervical spine multilevel cervical degenerative disc disease and C5 6 fusion C6 7 fusion from multilevel cervical spinal stenosis at C3 4 C4 5 and C5 6 C6 7 Assessment and plan=1-postlaminectomy pain syndrome lumbar area. 2-postlaminectomy pain syndrome and cervical area. 3-cervical spondylosis with cervical facet arthropathy without myelopathy. 4-cervical degenerative disc disease. Patient had excellent pain relief after caudal epidural steroid injections done recently In the future if patient had neck pain he could benefit from repeat RFA of the medial branch cervical area - PQRS measures = - Patient's medications are documented in the chart. -Tobacco use is positive ,and counseling.Given. -Patient's has received pneumococcal vaccine. -Advanced care planning discussed, patient not eligible. -Opiate contract not signed. -Pain positive and follow-up visit/procedure is scheduled. -Patient's blood pressure measured [ 137/81] , and documented in the record ,and patient will follow up with the primary care. -Patient's weight was measured and body mass index [ 25.7 ] above the normal limits and counseling was done. and patient instructed to follow-up with the primary care physician. -Patient was not identified as an unhealthy alcohol user Time with Patient: Less than 30
== END | disposition home or self-care (01) ==
LOC: PNWHC3 09:27
PROVIDERS: ATTEND Specialist
DX: M96.1 Postlaminectomy syndrome, not elsewhere classified (principal); M47.812 Spondylosis without myelopathy or radiculopathy, cervical region; M50.30 Other cervical disc degeneration, unspecified cervical region
CPT/HCPCS: 99211

== ENCOUNTER → 2021-01-11 | Outpatient (CLI) | payer MEDICARE ==
[2021-01-11 11:54] LABS: African American GFR (CKD) >90 (>60 ml/min/1.73 sqM); Blood Urea Nitrogen 13 mg/dL (9-20); Non-African American GFR(CKD) >90 (>60 ml/min/1.73 sqM)
--- NOTE | 2021-01-11 14:11 | CT ---
EXAMINATION TYPE: CT soft tissue neck w con DATE OF EXAM: 01/11/2021 12:45 PM COMPARISON: None HISTORY: Left sided swelling marked by BB. CT DLP: 357.1 mGycm Automated exposure control for dose reduction was used. CONTRAST: CT scan of the neck is performed following with IV Contrast, patient injected with 100 mL of Isovue 3 00. Axial images are obtained, coronal and sagittal reformatted images are reviewed. BB was placed a t the site of patient's palpable abnormality. FINDINGS: At the site of patient's palpable abnormality there is a mixed attenuation enhancing mass m easuring 2 cm x 2.8 cm x 3.2 cm. Airway: No gross abnormality seen. Some apical centrilobular, paraseptal emphysematous changes are pr esent Parotid/submandibular glands: No gross abnormality seen. Carotid/Vascular Structures: 4 super aortic branch vessels are present, atheromatous changes are pres ent at the carotid bulbs, right vertebral artery is dominant Osseous Structures: Degenerative disc changes are present. C5-6 shows prior fusion change, correlate for surgical history. Other: Dental amalgam causes some streak artifact over portions of the exam. IMPRESSION: Findings may represent left parotid mass rather than adenopathy
== END ==
LOC: RADCTMAIN 11:11
PROVIDERS: ATTEND Internal Medicine Critical Care Medicine
DX: R22.1 Localized swelling, mass and lump, neck (principal)
CPT/HCPCS: 82565; 84520; 70491; 36415; Q9967

== ENCOUNTER → 2021-01-21 | Outpatient (CLI) | payer MEDICARE ==
--- NOTE | 2021-01-25 06:02 | PE ---
EXAMINATION TYPE: PET CT fusion skull to thigh DATE OF EXAM: 01/21/2021 COMPARISON: Neck CT January 11, 2021 HISTORY: History of COPD and asthma with palpable abnormality left neck, recent abnormal CT. TECHNIQUE: Following the intravenous administration of 11.66 mCi of F-18 FDG, whole body images are performed from the skull base to the midthigh. Images are reviewed on the computer in the coronal, a xial, and sagittal planes. Reconstructed rotating images are created on independent workstation and reviewed on the computer. A localization and attenuation correction CT is performed in conjunction with the PET scan. Blood glucose level equals 84. SCAN: Initial Scan FINDINGS: SKULL BASE AND NECK: Corresponding to recent CT there is abnormal hypermetabolic mass in region of i nferior aspect left parotid gland measuring 2.2 x 1.7 cm, max SUV is 12.54. Length of lesion roughly 3.0 cm. Mild uptake left shoulder joint presumed postinflammatory. No additional areas of abnormal hypermetabolic uptake. Significant attention to the oropharyngeal and hypopharyngeal airways. CHEST, MEDIASTINUM, AND HILAR REGION: No areas of abnormal hypermetabolic uptake. ABDOMEN AND PELVIS: Normal excretion is seen. No areas of abnormal hypermetabolic uptake. OSSEOUS STRUCTURES: No areas of abnormal hypermetabolic uptake. OTHER CT: Moderate calcified plaque right greater than left bilateral carotid bulbs. Moderate coronary artery calcification bilaterally. Mild cardiomegaly. Moderate underlying emphysemat ous change. Dependent small stones and/or gallbladder sludge. Moderate calcified plaque abdominal aorta extends i nto branch vessels. Some ectasia without greater than 3.0 cm aneurysm. Sigmoid colonic diverticulosis . Mildly enlarged prostate consistent with BPH. Postsurgical changes to the lower lumbar spine. Multilevel spurring and disc space narrowing througho ut the spine. IMPRESSION: Confirmation of hypermetabolic roughly 3.0 cm inferior left parotid mass worrisome for ne oplasm. Abnormal adenopathy less likely but not excluded. Advise ENT referral. Advise imaging guided sampling.
== END | disposition home or self-care (01) ==
LOC: RADPETMAIN 15:51
PROVIDERS: ATTEND Internal Medicine Critical Care Medicine
DX: K11.8 Other diseases of salivary glands (principal)
CPT/HCPCS: 78815; A9552

== ENCOUNTER → 2021-03-08 | Outpatient (CLI) | payer MEDICARE ==
[2021-03-08 11:53] LABS: HCT 44.4 % (39.6-50.0); HGB 13.7 g/dL (13.0-17.0); MCH 27.5 pg (27.0-32.0); MCHC 30.9 g/dL (32.0-37.0); MCV 89.2 fL (80.0-97.0); Mean Platelet Volume 13.4 fL (9.5-12.2); Platelet Count 176 X 10*3/uL (140-440); RBC 4.98 X 10*6/uL (4.40-5.60); RDW 13.9 % (11.5-14.5)
[2021-03-08 11:54] LABS: Basophils # (M) 0.25 X 10*3/uL (0.00-0.10); Eosinophils # (M) 0.49 X 10*3/uL (0.04-0.35); Lymphocytes # (M) 4.31 X 10*3/uL (0.90-5.00); Monocytes # (M) 0.74 X 10*3/uL (0.20-1.00); Neutrophils # (M) 6.52 X 10*3/uL (2.00-8.90); Neutrophils % (M) 53 %
[2021-03-08 14:52] LABS: African American GFR (CKD) 104.2 (60.0-200.0); Anion Gap 6.6 mmol/L (4.00-12.00); BUN/Creat Ratio 16.25 Ratio (12.00-20.00); Calcium 8.9 mg/dL (8.7-10.3); Carbon Dioxide 27.4 mmol/L (21.6-31.8); Non-African American GFR(CKD) 89.9 (60.0-200.0); Potassium 4.9 mmol/L (3.5-5.5)
== END | disposition home or self-care (01) ==
LOC: LABWHC1 07:23
PROVIDERS: ATTEND Otolaryngology
DX: Z01.812 Encounter for preprocedural laboratory examination (principal); Z20.822 Contact with and (suspected) exposure to COVID-19
CPT/HCPCS: 80048; 85025; 36415; U0003; C9803; U0005

== ENCOUNTER → 2021-08-10 | Outpatient (CLI) | payer MEDICARE ==
[2021-08-10 11:09] LABS: Basophils # (A) 0.08 X 10*3/uL (0.00-0.10); Basophils % (A) 0.7 %; Eosinophils # (A) 0.43 X 10*3/uL (0.04-0.35); Eosinophils % (A) 3.7 %; HCT 43.5 % (39.6-50.0); HGB 14.1 g/dL (13.0-17.0); Lymphocytes # (A) 4.15 X 10*3/uL (0.90-5.00); MCH 29.6 pg (27.0-32.0); MCHC 32.4 g/dL (32.0-37.0); MCV 91.2 fL (80.0-97.0); Mean Platelet Volume 12.5 fL (9.5-12.2); Monocytes # (A) 0.66 X 10*3/uL (0.20-1.00); Monocytes % (A) 5.7 %; Neutrophils # (A) 6.17 X 10*3/uL (1.80-7.70); Neutrophils % (A) 53.6 %; Platelet Count 190 X 10*3/uL (140-440); RBC 4.77 X 10*6/uL (4.40-5.60); RDW 13.3 % (11.5-14.5); WBC 11.52 X 10*3/uL (4.50-10.00)
[2021-08-10 19:32] LABS: Chol/HDL Ratio 2.96 Ratio; HDL Cholesterol 68.6 mg/dL (40.00-60.00); LDL Cholesterol,Calculated 122.4 mg/dL (0.0-131.0); Prostate Specific Antigen 0.6 ng/mL (0.00-6.50); T4, Free (Free Thyroxine) 1.04 ng/dL (0.800-1.800); Triglycerides 59.8 mg/dL (0.00-149.00); VLDL Calculation 11.96 mg/dL (5.00-40.00)
[2021-08-10 20:04] LABS: African American GFR (CKD) 100.4 (60.0-200.0); Albumin 4.3 g/dL (3.8-4.9); Albumin/Globulin Ratio 1.81 (1.60-3.17); Anion Gap 13.1 mmol/L (4.00-12.00); BUN/Creat Ratio 11.47 Ratio (12.00-20.00); Blood Urea Nitrogen 9.9 mg/dL (9.0-27.0); Calcium 9.2 mg/dL (8.7-10.3); Carbon Dioxide 24.2 mmol/L (21.6-31.8); Globulin 2.4 g/dL (1.6-3.3); Non-African American GFR(CKD) 86.6 (60.0-200.0); Potassium 5.1 mmol/L (3.5-5.5); Total Bilirubin 0.4 mg/dL (0.30-1.20); Total Protein 6.7 g/dL (6.2-8.2)
== END | disposition home or self-care (01) ==
LOC: LABWHC1 08:02
PROVIDERS: ATTEND Family Medicine
DX: I10 Essential (primary) hypertension (principal); V70.0XXA Driver of bus injured in collision with pedestrian or animal in nontraffic accident, initial encounter; Y92.9 Unspecified place or not applicable
CPT/HCPCS: 36415; 80053; 80061; 84153; 84439; 84443; 85025

== ENCOUNTER → 2022-01-13 | Outpatient (CLI) | payer MEDICARE ==
--- NOTE | 2022-01-13 10:55 | CT ---
EXAMINATION TYPE: CT sinus wo con DATE OF EXAM: 01/13/2022 COMPARISON: PET scan dated 01/21/2021 HISTORY: Chronic sinusitis. CT DLP: 630.3 mGycm. Automated Exposure Control for Dose Reduction was Utilized. TECHNIQUE: CT scan of the sinuses is performed without contrast, axial images are obtained, coronal r eformatted images are also reviewed. FINDINGS: Minimal deviation of the inferior aspect of the bony nasal septum convex to the right side. Paradoxic al middle turbinates. Grossly unremarkable inferior turbinates. Mucosal thickening of the infundibulu m bilaterally, yet still patent. Patent ostiomeatal complexes. Circumferential mild mucosal thickening of the maxillary sinuses with right maxillary sinus polyp/ret ention cyst measuring 10 mm seen in the alveolar recess. Intact bony boundary of the maxillary sinuse s. Mucosal thickening of the anterior ethmoid cells. Minimal mucosal thickening of the inferior aspec ts of the frontal sinus. Mild mucosal thickening of the sphenoid sinus with obstructed sphenoethmoidal recesses by mucosal thi ckening. Clear visualized portion of the mastoid air cells. Slightly prominent nasopharyngeal soft ti ssue, please correlate clinically. Surgical clips in the left parotid gland. Unremarkable visualized portion of the brain and orbits. IMPRESSION: Mucosal thickening of the paranasal sinuses as described above suggestive of chronic sinusitis, pleas e correlate clinically. Other incidental findings as described above.
== END | disposition home or self-care (01) ==
LOC: RADCTMAIN 09:50
PROVIDERS: ATTEND Otolaryngology
DX: J34.89 Other specified disorders of nose and nasal sinuses (principal)
CPT/HCPCS: 70486

== ENCOUNTER → 2022-05-17 | Outpatient (CLI) | payer MEDICARE ==
[2022-05-17 10:57] LABS: ALT 33 U/L (10-49); AST 27 U/L (14-35); African American GFR (CKD) 97.9 (60.0-200.0); Albumin 4.3 g/dL (3.8-4.9); Albumin/Globulin Ratio 1.65 (1.60-3.17); Alkaline Phosphatase 80 U/L (41-126); BUN/Creat Ratio 15.22 Ratio (12.00-20.00); Blood Urea Nitrogen 13.7 mg/dL (9.0-27.0); Calcium 9.5 mg/dL (8.7-10.3); Carbon Dioxide 29.6 mmol/L (20.0-27.5); Chloride 103 mmol/L (96-109); Chol/HDL Ratio 2.68 Ratio; Globulin 2.6 g/dL (1.6-3.3); Glucose 118 mg/dL (70-110); LDL Cholesterol,Calculated 115.6 mg/dL (0.0-131.0); Non-African American GFR(CKD) 84.4 (60.0-200.0); Potassium 5.2 mmol/L (3.5-5.5); Sodium 142 mmol/L (135-145); Total Protein 6.9 g/dL (6.2-8.2)
[2022-05-17 20:58] LABS: Basophils # (A) 0.05 X 10*3/uL (0.00-0.10); Basophils % (A) 0.3 %; Eosinophils # (A) 0.31 X 10*3/uL (0.04-0.35); Eosinophils % (A) 1.8 %; HGB 14.6 g/dL (13.0-17.0); Immature Grans, Automated 0.4 %; Lymphocytes # (A) 6.71 X 10*3/uL (0.90-5.00); Lymphocytes % (A) 39.4 %; MCH 27.5 pg (27.0-32.0); MCHC 31.1 g/dL (32.0-37.0); MCV 88.5 fL (80.0-97.0); Mean Platelet Volume 13.6 fL (9.5-12.2); Monocytes # (A) 1.17 X 10*3/uL (0.20-1.00); Monocytes % (A) 6.9 %; NRBC Per 100 WBC 0 /100 WBCS (0.0-0.0); Neutrophils # (A) 8.73 X 10*3/uL (1.80-7.70); Neutrophils % (A) 51.2 %; Platelet Count 175 X 10*3/uL (140-440); RBC 5.31 X 10*6/uL (4.40-5.60); RDW 14.8 % (11.5-14.5); WBC 17.04 X 10*3/uL (4.50-10.00)
== END | disposition home or self-care (01) ==
LOC: LABWHC1 07:17
PROVIDERS: ATTEND Family Medicine
DX: J45.909 Unspecified asthma, uncomplicated (principal); K57.90 Diverticulosis of intestine, part unspecified, without perforation or abscess without bleeding; K21.9 Gastro-esophageal reflux disease without esophagitis; E74.818 Other disorders of glucose transport
CPT/HCPCS: 36415; 80053; 80061; 84439; 84443; 85025

== ENCOUNTER → 2022-05-29 | Outpatient (CLI) | payer MEDICARE ==
[2022-05-29 17:49] LABS: HCT 45.8 % (39.6-50.0); HGB 14.1 g/dL (13.0-17.0); MCH 27.6 pg (27.0-32.0); MCHC 30.8 g/dL (32.0-37.0); MCV 89.6 fL (80.0-97.0); Mean Platelet Volume 12.8 fL (9.5-12.2); NRBC Per 100 WBC 0 /100 WBCS (0.0-0.0); Platelet Count 174 X 10*3/uL (140-440); RBC 5.11 X 10*6/uL (4.40-5.60); RDW 14.5 % (11.5-14.5); WBC 11.19 X 10*3/uL (4.50-10.00)
== END | disposition home or self-care (01) ==
LOC: LABWHC1 10:37
PROVIDERS: ATTEND Family Medicine
DX: D72.829 Elevated white blood cell count, unspecified (principal)
CPT/HCPCS: 36415; 85027

== ENCOUNTER 2022-06-07 12:46 | Day surgery (SDC) | payer MEDICARE ==
[2022-06-05 12:07] VITALS: BMI 25.2
[~2022-06-07 12:46] MED LIST changes: +ALBUTEROL NEB (CONC) 2.5 MG/0.5 ML INHALATION ONE; +ATROPINE SULFATE 0.4 MG/ML 1 ML VIAL IM ONE; -IOPAMIDOL M200 10 ML VIAL ONE; +LIDOCAINE 2% (PF) 20 MG/ML 5 ML VIAL INHALATION ONE; +LIDOCAINE VISCOUS 300 MG/15 ML CUP MUCOUS MEM ONE; -MIDAZOLAM 2 MG/2 ML VIAL ONE; +fentaNYL (PF) 50 MCG/ML 2 ML AMP IV PRN; -fentaNYL (PF) 50 MCG/ML 2 ML AMP ONE; -methylPREDNISolone ACETATE 40 MG/ML 1 ML VIAL ONE
[2022-06-07 13:07] VITALS: TEMP 98.6
[2022-06-07] MEDS ORDERED: KETAMINE 10 MG/ML 20 ML VIAL ONE (13:17)
[2022-06-07] MEDS ORDERED: LIDOCAINE 2% INJ 20 MG/ML (2 ML VIAL) ONE (13:17)
[2022-06-07] MEDS ORDERED: PROPOFOL 10 MG/ML 20 ML VIAL IV ONE (13:17)
[2022-06-07 13:35] VITALS: BP 147/79
[2022-06-07 13:48] VITALS: PULSE 92; RESP 18
[2022-06-07 23:50] LABS: Appearance,BF Clear
--- NOTE | 2022-06-08 08:24 | OP ---
OPERATIVE REPORT PROCEDURES PERFORMED: Bronchoscopy, airway examination, therapeutic lavage, and bronchoalveolar lavage, right middle lobe. PREOPERATIVE DIAGNOSES: 1. Chronic obstructive pulmonary disease exacerbation. 2. Retained secretions. 3. Bronchiectasis. POSTOPERATIVE DIAGNOSES: 1. Chronic obstructive pulmonary disease exacerbation. 2. Retained secretions. 3. Bronchiectasis. ANESTHESIA PROVIDED: General anesthesia. DESCRIPTION OF PROCEDURE: There was informed consent and universal time-out. The patient's procedure took place in room #1 [facility]. After the patient was adequately sedated and being fully monitored, the bronchoscope was inserted through the left nostril. It passed through the left nasopharynx into the oropharynx. The hypopharynx was identified and topicalized. The hypopharyngeal structures, including anterior commissure, true cords, false cords, arytenoids, piriform sinuses, right and left vallecula, and epiglottis all appeared normal. After topicalization, the bronchoscope was pushed through the glottic opening into the trachea. There was vascular engorgement of the trachea. The trachea had a saber-sheath appearance. Tracheal ty was sharp. The right and left mainstem were topicalized. The left lung including the left upper lobe proper and its 2 segments, the lingula and its 2 segments, and left lower lobe and its 4 segments revealed evidence of pvph-hd-cqjkdkbv bronchitis. There were some secretions noted. They were purulent appearing. There was no dominant mass or tumor. There was no bleeding. On the right side, the right upper lobe and its 3 segments appeared normal. Also, the right lower lobe and its 5 segments appeared normal, the same findings on the left side, which were diffuse cwnu-yx-skyazejf bronchitis and airway erythema. There was no dominant mass or tumor. Of note was the fact that the right middle lobe had a fishmouth appearance to it. I believe the patient probably is at increased risk for right middle lobe syndrome. The bronchoscope was able to be wedged in partially to the right middle lobe. We did a formal BAL. About 35 mL of fluid was recovered. The patient tolerated the procedure well. The fluid will be sent for analysis. The bronchoscope was withdrawn. There was no immediate complication. The patient will be recovered. MMODL / IJN: [id number] /
--- NOTE | 2022-06-08 08:33 | PCN ---
PROCEDURE NOTE PROCEDURES PERFORMED: Bronchoscopy, airway examination, therapeutic lavage, bronchoalveolar lavage. PREOPERATIVE DIAGNOSES: 1. Severe chronic obstructive pulmonary disease. 2. Bronchiectasis. 3. Retained secretion. 4. Pulmonary infection. POSTOPERATIVE DIAGNOSES: 1. Severe chronic obstructive pulmonary disease. 2. Bronchiectasis. 3. Retained secretion. 4. Pulmonary infection. 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 DESCRIPTION OF PROCEDURE: There was informed consent and universal time-out. The patient's procedure took place in room #1 [facility]. Anesthesia provided, general anesthesia. After the patient was adequately sedated and being fully monitored, the bronchoscope was inserted through the left nostril. It was passed through the nasopharynx into the oropharynx. The hypopharynx was evaluated. It appeared normal. Anterior commissure, true cords, false cords, arytenoids, piriform sinuses, right and left valleculae, and epiglottis, all appeared normal. The glottic opening was topicalized. The trachea was evaluated. There was some vascular engorgement. Trachea had a saber-sheath appearance. Tracheal ty was sharp. There were scant secretions within the trachea. Right and left mainstem were topicalized. The right upper lobe and its 3 segments, right lower lobe and its 5 segments, the left upper lobe proper and its 2 segments, the lingula and its 2 segments, and the left lower lobe and its 4 segments, all appeared reasonably normal, although there was some ynvo-yv-jkswpmjv bronchitis. There were scant secretions. They did look a bit purulent. There was no dominant mass or tumor. There was no hemorrhage. Of note, the right middle lobe had a fish mouth appearance. The patient is at high risk for right middle lobe syndrome in my opinion. It was difficult to get the endoscope into the right middle lobe. On the left, we did place it there for a BAL of the right middle lobe. The patient tolerated the procedure well. About 35 mL of fluid was collected. It was sent to the laboratory for analysis. There was no immediate complication. The bronchoscope was withdrawn, and the patient was sent to recovery area. He did well. I did speak to him and his after the procedure, counseling about the importance of smoking cessation. MMODL / IJN: [id number] /
== END 2022-06-07 14:05 | disposition home or self-care (01) ==
LOC: ORWHC2ENDO 12:46
PROVIDERS: ATTEND Internal Medicine Critical Care Medicine
DX: J44.1 Chronic obstructive pulmonary disease with (acute) exacerbation (principal); J45.40 Moderate persistent asthma, uncomplicated; E78.5 Hyperlipidemia, unspecified; G47.33 Obstructive sleep apnea (adult) (pediatric); I10 Essential (primary) hypertension; K21.9 Gastro-esophageal reflux disease without esophagitis; Z86.73 Personal history of transient ischemic attack (TIA), and cerebral infarction without residual deficits; Z79.82 Long term (current) use of aspirin; Z79.899 Other long term (current) drug therapy; Z79.51 Long term (current) use of inhaled steroids; Z86.16 Personal history of COVID-19; Z82.49 Family history of ischemic heart disease and other diseases of the circulatory system; F17.200 Nicotine dependence, unspecified, uncomplicated; Z98.52 Vasectomy status
CPT/HCPCS: 88108; 88305; 89050; 87252; 87070; 87205; 87116; 87102; 87206; 31624; J2704; J2001

== ENCOUNTER → 2022-07-19 | Outpatient (CLI) | payer MEDICARE ==
[2022-07-19 09:21] VITALS: BP 162/78; PULSE 78; RESP 18
--- NOTE | 2022-07-19 14:37 | P.PAINPG ---
PQRS Measure Charge Sheet Comment: A 72 yr old male with a history of severe and chronic neck & lower back pain secondary to cervical & lumbar degenerative disc diseases and spondylosis with facet arthropathy without myelopathy presents today for evaluation s/p caudal YURI w lysis in 2020. He experienced 100% pain relief x 18 mo s/p procedure. Pain level is currently at 6/10 in intensity, constant, localized in lower back, cramping in character w achy pain shooting towards the BLEs. Pain is provoked 10/10 by bearing down w constipation and walking for periods of 15 min or more. Pain is alleviated with PT in the past, home exercise regimen, use of a cane for ambulation, chiropractic treatments provided no relief, (Neurontin, Motrin), heat, ice, repositioning and rest. Interventional pain procedures completed include Caudal YURI w lysis Patient is currently on Neurontin, Motrin 800mg. Patient denies any side effects of the medication(s), denies excessive drowsiness or sleepiness, denies suicidal ideation and reports that the current pain medication is helping to control the pain and improve activities of daily living. Patient denies any motor or sensory deficits. Patient denies any fever or night sweats, denies any change in the bowel movements or urination. Physical Examination: -Constitutional: Cooperative. Not in acute distress . - Neurologic: Cranial nerve II to XII intact. No focal neurological deficits. - Psychatric: Alert & oriented x 3. Matching mood & appropriate affect. Judgment and insight intact. - Musculoskeletal: Cervical spine: Muscle bulk/ tone/ strength in the bilateral upper extremities normal Vertebral body tenderness to palpation over Spurling test positive Distraction test positive Facet loading test positive Thoracic spine Muscle bulk / tone/ strength in the bilateral paraspinal muscles normal Vertebral body tender to palpation over Facet loading test positive Lumbar spine: Motor bulk/ tone/ strength lower extremities , thigh and legs : 5/5 Deep tendon reflexes : Normal Knee Jerk. Normal Ankle Jerk . 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 May need a series of YURI, up to 3 within a 6 mo period, for optimal pain relief. Risks, benefits of procedure discussed and pt verbalized understanding. Admits to anticoagulant use and denies a medical history of diabetes. Protocol for discontinuation/ continuation of medications kinjal procedure discussed. All patient questions answered MAPS reviewed and it was appropriate. I have spent less than 30 minutes on patient care today. Dr Murrell was available by phone for the evaluation of this patient. The time was used to review the medical records including relevant urine studies and Prescription history (MAPs), review of the available imaging, evaluation and examination of the patient, coordination of care with the medical staff and if applicable referring physicians, as well as creation of the medical record PQRS Narrative: Smoking Status Current every day smoker Hx Alcohol Use (MH) No Home Medications: Ambulatory Orders Montelukast [Singulair] 10 mg PO HS 04/06/16 Multivitamins, Thera [Multivitamin] 1 tab PO DAILY 04/06/16 Gabapentin [Neurontin] 300 mg PO Q8H PRN 10/19/20 Omeprazole [PriLOSEC] 40 mg PO HS 10/19/20 Aspirin EC [Ecotrin Low Dose] 81 mg PO HS 11/29/20 Cholecalciferol [Vitamin D3 (25 Mcg = 1000 Iu)] 25 mcg PO DAILY 11/29/20 Albuterol Nebulized [Ventolin Nebulized] 2.5 mg INHALATION DIRECTED PRN 06/05/22 Albuterol Sulfate [Proair Respiclick] 1 puff INHALATION DIRECTED PRN 06/05/22 Azithromycin [Zithromax] 500 mg PO DIRECTED 06/05/22 Budesonide-Formot 160-4.5 Mcg [Symbicort 160-4.5 Mcg Inhaler] 2 puff INHALATION BID 06/05/22 Ipratropium [place] 0.06%Nasal [Atrovent Nasal 0.06%] 2 spray EA NOSTRIL QID PRN 06/05/22 Controlled Substance Measures - Controlled Substance Measures Is patient prescribed a controlled substance at discharge?: No
== END ==
LOC: PNWHC3 08:42
PROVIDERS: ATTEND Specialist
DX: M96.1 Postlaminectomy syndrome, not elsewhere classified (principal); M47.812 Spondylosis without myelopathy or radiculopathy, cervical region; F17.200 Nicotine dependence, unspecified, uncomplicated; G89.29 Other chronic pain; Z88.1 Allergy status to other antibiotic agents
CPT/HCPCS: 99211

== ENCOUNTER → 2022-08-14 | Outpatient (CLI) | payer MEDICARE ==
[2022-08-14 15:26] LABS: ALT 22 U/L (10-49); AST 32 U/L (14-35); African American GFR (CKD) 104.9 (60.0-200.0); Albumin 4.2 g/dL (3.8-4.9); Albumin/Globulin Ratio 1.44 (1.60-3.17); Alkaline Phosphatase 77 U/L (41-126); BUN/Creat Ratio 17.11 Ratio (12.00-20.00); Calcium 9.3 mg/dL (8.7-10.3); Carbon Dioxide 25.7 mmol/L (20.0-27.5); Chloride 106 mmol/L (96-109); Chol/HDL Ratio 3.23 Ratio; Globulin 2.9 g/dL (1.6-3.3); Glucose 108 mg/dL (70-110); LDL Cholesterol,Calculated 122.6 mg/dL (0.0-131.0); Non-African American GFR(CKD) 90.5 (60.0-200.0); Potassium 4.1 mmol/L (3.5-5.5); Sodium 143 mmol/L (135-145); Total Protein 7.1 g/dL (6.2-8.2); VLDL Calculation 14.72 mg/dL (5.00-40.00)
[2022-08-14 17:03] LABS: Basophils # (A) 0.05 X 10*3/uL (0.00-0.10); Basophils % (A) 0.4 %; Eosinophils % (A) 3.4 %; HGB 13.9 g/dL (13.0-17.0); Immature Grans, Automated 0.3 %; Lymphocytes # (A) 2.93 X 10*3/uL (0.90-5.00); Lymphocytes % (A) 24.7 %; MCH 28.5 pg (27.0-32.0); MCHC 32.3 g/dL (32.0-37.0); MCV 88.1 fL (80.0-97.0); Mean Platelet Volume 13.5 fL (9.5-12.2); Monocytes # (A) 0.83 X 10*3/uL (0.20-1.00); NRBC Per 100 WBC 0 /100 WBCS (0.0-0.0); Neutrophils % (A) 64.2 %; Platelet Count 182 X 10*3/uL (140-440); RBC 4.88 X 10*6/uL (4.40-5.60); RDW 13.4 % (11.5-14.5); WBC 11.84 X 10*3/uL (4.50-10.00)
== END | disposition home or self-care (01) ==
LOC: LABWHC1 09:13
PROVIDERS: ATTEND Family Medicine
DX: J45.909 Unspecified asthma, uncomplicated (principal); K57.30 Diverticulosis of large intestine without perforation or abscess without bleeding; K21.9 Gastro-esophageal reflux disease without esophagitis; E78.5 Hyperlipidemia, unspecified; M51.36 Other intervertebral disc degeneration, lumbar region; J01.00 Acute maxillary sinusitis, unspecified
CPT/HCPCS: 36415; 80053; 80061; 84153; 84439; 84443; 85025

== ENCOUNTER 2022-08-22 07:31 | Day surgery (SDC) | payer MEDICARE ==
[~2022-08-22 07:31] MED LIST changes: -ALBUTEROL NEB (CONC) 2.5 MG/0.5 ML INHALATION ONE; -ATROPINE SULFATE 0.4 MG/ML 1 ML VIAL IM ONE; -LIDOCAINE 2% (PF) 20 MG/ML 5 ML VIAL INHALATION ONE; -LIDOCAINE VISCOUS 300 MG/15 ML CUP MUCOUS MEM ONE; -fentaNYL (PF) 50 MCG/ML 2 ML AMP IV PRN
[2022-08-22 07:47] VITALS: RESP 16; TEMP 97.9
[2022-08-22] MEDS ORDERED: MIDAZOLAM 2 MG/2 ML VIAL ONE (08:13)
[2022-08-22] MEDS ORDERED: fentaNYL (PF) 50 MCG/ML 2 ML AMP ONE (08:13)
[2022-08-22] MEDS ORDERED: IOPAMIDOL M200 10 ML VIAL ONE (08:13)
[2022-08-22] MEDS ORDERED: TRIAMCINOLONE ACETONIDE 40 MG/ML 1 ML VIAL ONE ×3 (08:13)
[2022-08-22] MEDS ORDERED: ROPIVACAINE 5 MG/ML 20 ML AMPULE ONE (08:13)
--- NOTE | 2022-08-22 08:29 | P.PCN ---
Date of Procedure: 08/22/22 Surgeon: Racquel Xie Pathology: none sent Condition: stable Disposition: PACU Description of Procedure: PREOP DIAGNOSIS: Lumbar postlaminectomy syndrome. POSTOP DIAGNOSIS: Lumbar postlaminectomy syndrome. PROCEDURE: Caudal epidural steroid injection with epidurolysis and epidurogram under fluoroscopic guidance ANESTHESIA: Local with 1% lidocaine; IV moderate conscious sedation with fent anyl and Versed EBL: Minimal. PROCEDURE INDICATION: The patient with post-laminectomy syndrome with low back pain and radiculopathy radiating down in both legs, here for a caudal epidural steroid injection with epidurolysis. PROCEDURE DESCRIPTION: The patient was seen in the preoperative holding area consent was obtained then he was brought into the procedure room and placed in prone position. Skin was prepped with ChloraPrep and draped in a sterile manner. Lidocaine 1% was used to numb the skin up at the target point that was chosen as follows: The lateral view of fluoroscopy was used to identify the sacral hiatus and then after localizing the skin with lidocaine 1% I used 18- gauge epidural needle with a plastic sheath to go through the sacral hiatus and into the sacral canal and then injected 1 mL of Omnipaque for verification of needle tip position. After that the metal core of the needle was taken out and the plastic sheath was kept in the sacral canal. Then Racz catheter was introduced through the plastic sheath and into the epidural space at the sacral canal using the AP view of fluoroscopy up to L5-S1 level then I injected 2 MLS of Omnipaque which showed spread in the epidural space and after few back and forth movements of the Racz catheter I injected 80 mg of Kenalog +2 MLS of Ropivacaine 0.5% +7 MLS of preservative-free normal saline to a total volume of 10 MLS in the epidural space. Patient tolerated procedure well. A copy of the needle placement x-ray was saved to the C-arm machine. COMPLICATIONS: None. DISPOSITION / PLANS: The patient was placed in a supine position and transferred to the recovery area in a stable condition for observation and was discharged from the recovery room after meeting discharge criteria. Home discharge instructions given to the patient by the staff. The patient was reexamined prior to discharge. The patient will schedule a follow up in the clinic in 2-4 weeks. Sedation time:[id number]
[2022-08-22] MEDS ORDERED: IV FLUID CONTINUATION 1,000 ML IV ONE (08:33)
[2022-08-22 08:49] VITALS: BP 120/75; PULSE 74
--- NOTE | 2022-08-22 08:57 | FL ---
EXAMINATION TYPE: FL guided pain mgmt statistic DATE OF EXAM: 08/22/2022 HISTORY: Fluoroscopy time 9 seconds of fluoroscopy provided. IMPRESSION: 1. Fluoroscopy time.
== END 2022-08-22 09:10 | disposition home or self-care (01) ==
LOC: ORPAIN 07:31
PROVIDERS: ATTEND Anesthesiology
DX: M96.1 Postlaminectomy syndrome, not elsewhere classified (principal); M54.16 Radiculopathy, lumbar region
CPT/HCPCS: 62264; J2250; J3301; J3010; Q9966; J2795; 99152

== ENCOUNTER → 2022-09-11 | Outpatient (CLI) | payer MEDICARE ==
[2022-09-11 09:48] VITALS: BP 147/83; PULSE 82; RESP 18
--- NOTE | 2022-09-11 15:09 | P.PAINPG ---
Objective - Vital Signs Vital signs: Vital Signs Temp Pulse 82 09/11/22 09:40 Resp 18 09/11/22 09:40 BP 147/83 09/11/22 09:40 Pulse Ox 98 09/11/22 09:40 FiO2 Intake & Output 09/10/22 09/11/22 09/11/22 18:59 06:59 18:59 Weight 68.039 kg PQRS Measure Charge Sheet Mode of Arrival: Cane Comment: A 72 yr old male w at side with a history of severe and chronic low back pain secondary to lumbar degenerative disc diseases and lumbar spondylosis with facet arthropathy without myelopathy presents today for evaluation s/p Caudal YURI w Lysis . 80% apin relief x 3 wks s/p procedure. Pain level is currently at 2 /10 in intensity, intermittent pinching sensation w shooting towards the feet. Pain is provoked by standing upright/ bending/ twisting. Pain is alleviated with PT/ chiropractic/ massage therapy yrs ago , use of a cane for ambulation, home guided exercises daily, heat, ice, meds, topicals, repositioning and rest. Interventional pain procedures completed include Caudal YURI w Lysis Patient is currently on Neurontin, Ibuprofen Patient denies any side effects of the medication(s), denies excessive drowsiness or sleepiness, denies suicidal ideation and reports that the current pain medication is helping to control the pain and improve activities of daily living. Patient denies any motor or sensory deficits. Patient denies any fever or night sweats, denies any change in the bowel movements or urination. Physical Examination: -Constitutional: Cooperative. Not in acute distress . - Neurologic: Cranial nerve II to XII intact. No focal neurological deficits. - Psychatric: Alert & oriented x 3. Matching mood & appropriate affect. Judgment and insight intact. - Musculoskeletal: Cervical spine: Muscle bulk/ tone/ strength in the bilateral upper extremities normal Vertebral body tenderness to palpation over Spurling test positive Distraction test positive Facet loading test positive Thoracic spine Muscle bulk / tone/ strength in the bilateral paraspinal muscles normal Vertebral body tender to palpation over Facet loading test positive Lumbar spine: Motor bulk/ tone/ strength lower extremities , thigh and legs : 5/5 Deep tendon reflexes : Normal Knee Jerk. Normal Ankle Jerk . Vertebral body tenderness to palpation over Lumbar Facet Loading Test positive Straight Leg Raise: positive at 30 degrees right side/ left side Gaenslen's Test positive Sacral spine : Severe tenderness over the Sacroiliac joint: right side / left side Range of motion: Flexion of the lumbar spine <60 degrees Range of motion: Extension of the lumbar spine <20 degrees Gaenslen's Test positive Nate's Test positive Julio test: positive right side / left side Thigh Thrust Test Sacral Thrust Test Assessment and plan: Chronic low back pain secondary to lumbar degenerative disc disease , lumbar spondylosis with facet arthropathy without myelopathy Pt exhibited sufficient and optimal pain relief s/p procedure. He will manage residual pain w home pain mgmt remedies and may return to our clinic on an as needed basis. Risks, benefits of procedure discussed and pt verbalized understanding. Denies anticoagulant use or medical history of diabetes. All patient questions answered I have spent less than 30 minutes on patient care today. Dr Murrell was available by phone for the evaluation of this patient. The time was used to review the medical records including relevant urine studies and Prescription history (MAPs), review of the available imaging, evaluation and examination of the patient, coordination of care with the medical staff and if applicable referring physicians, as well as creation of the medical record - Pain Location Left Lower Back Non-Pharmacological Interventions: Exercise, Heat, Home Exercise, Ice, Physical Therapy, Stretching Pharmacological Interventions: Epidural, PRN Medication, Topical Medication PQRS Narrative: Smoking Status Current every day smoker Blood Pressure 147/83 Pain Intensity [Left Lower 2 Back] Scale Used Numeric (1 - 10) Hx Alcohol Use (MH) No Home Medications: Ambulatory Orders Montelukast [Singulair] 10 mg PO HS 04/06/16 Multivitamins, Thera [Multivitamin] 1 tab PO DAILY 04/06/16 Gabapentin [Neurontin] 300 mg PO Q8H PRN 10/19/20 Omeprazole [PriLOSEC] 40 mg PO HS 10/19/20 Aspirin EC [Ecotrin Low Dose] 81 mg PO HS 11/29/20 Cholecalciferol [Vitamin D3 (25 Mcg = 1000 Iu)] 25 mcg PO DAILY 11/29/20 Albuterol Nebulized [Ventolin Nebulized] 2.5 mg INHALATION DIRECTED PRN 06/05/22 Albuterol Sulfate [Proair Respiclick] 1 puff INHALATION DIRECTED PRN 06/05/22 Budesonide-Formot 160-4.5 Mcg [Symbicort 160-4.5 Mcg Inhaler] 2 puff INHALATION BID 06/05/22 Ipratropium [place] 0.06%Nasal [Atrovent Nasal 0.06%] 2 spray EA NOSTRIL QID PRN 06/05/22 Controlled Substance Measures - Controlled Substance Measures Is patient prescribed a controlled substance at discharge?: No
== END ==
LOC: PNWHC3 09:22
PROVIDERS: ATTEND Specialist
DX: M47.816 Spondylosis without myelopathy or radiculopathy, lumbar region (principal); M51.36 Other intervertebral disc degeneration, lumbar region; G89.29 Other chronic pain; Z88.1 Allergy status to other antibiotic agents; F17.200 Nicotine dependence, unspecified, uncomplicated
CPT/HCPCS: 99211

== ENCOUNTER → 2022-10-25 | Outpatient (CLI) | payer MEDICARE ==
[2022-10-25 11:15] VITALS: BP 149/83; PULSE 97; RESP 18; TEMP 98.2
--- NOTE | 2022-10-25 14:25 | P.PAINPG ---
PQRS Measure Charge Sheet Comment: A 72 yr old male w at side with a history of severe and chronic neck pain secondary to cervical DDD and spondylosis with facet arthropathy without myelopathy presents today for neck pain. Prior RFA on 12/22/[address] Mahmood's office of the C2-C3, C3-C4, C4-C5 exhibited 100% pain relief x 2 yr 8 mo s/p procedure. Pain level is currently at 7 /10 in intensity, constant, localized in the mid cervical spine L>R, pressure in character w shooting towards the L hoahaoism. Pain is provoked by rotation and palpation over the facets. Pain is alleviated with ablation in the past, medications (ibuprofen, Neurontin), injections in the past, ice, heat, PT years ago, laying on a wedge, repositioning and rest. Interventional pain procedures completed include Caudal YURI w Lysis Patient is currently on Ibu, Neurontin Patient denies any side effects of the medication(s), denies excessive drowsiness or sleepiness, denies suicidal ideation and reports that the current pain medication is helping to control the pain and improve activities of daily living. Patient denies any motor or sensory deficits. Patient denies any fever or night sweats, denies any change in the bowel movements or urination. Physical Examination: -Constitutional: Cooperative. Not in acute distress . - Neurologic: Cranial nerve II to XII intact. No focal neurological deficits. - Psychatric: Alert & oriented x 3. Matching mood & appropriate affect. Judgment and insight intact. - Musculoskeletal: Cervical spine: Muscle bulk/ tone/ strength in the bilateral upper extremities normal Vertebral body tenderness to palpation over Spurling test positive Distraction test positive Facet loading test positive TTP over C3 facets Thoracic spine Muscle bulk / tone/ strength in the bilateral paraspinal muscles normal Vertebral body tender to palpation over Facet loading test positive Lumbar spine: Motor bulk/ tone/ strength lower extremities , thigh and legs : 5/5 Deep tendon reflexes : Normal Knee Jerk. Normal Ankle Jerk . Vertebral body tenderness to palpation over Lumbar Facet Loading Test positive Straight Leg Raise: positive at 30 degrees right side/ left side Gaenslen's Test positive Sacral spine : Severe tenderness over the Sacroiliac joint: right side / left side Range of motion: Flexion of the lumbar spine <60 degrees Range of motion: Extension of the lumbar spine <20 degrees Gaenslen's Test positive Julio test: positive right side / left side Thigh Thrust Test Sacral Thrust Test Assessment and plan: Chronic neck pain secondary to cervical DDD, spondylosis with facet arthropathy without myelopathy Recommendation of BL RFA C3-C4, C4-C5. Pt exhibited substantial relief w prior RFA [place] [address] Mahmood's office. Risks, benefits of procedure discussed and pt verbalized understanding. Admits to anticoagulant use or medical history of diabetes. Protocol for discontinuation/ continuation of medications kinjal procedure discussed. All patient questions answered I have spent less than 30 minutes on patient care today. Dr Murrell was available by phone for the evaluation of this patient. The time was used to review the medical records including relevant urine studies and Prescription history (MAPs), review of the available imaging, evaluation and examination of the patient, coordination of care with the medical staff and if applicable referring physicians, as well as creation of the medical record PQRS Narrative: Smoking Status Current every day smoker Hx Alcohol Use (MH) No Home Medications: Ambulatory Orders Montelukast [Singulair] 10 mg PO HS 04/06/16 Multivitamins, Thera [Multivitamin] 1 tab PO DAILY 04/06/16 Gabapentin [Neurontin] 300 mg PO Q8H PRN 10/19/20 Omeprazole [PriLOSEC] 40 mg PO HS 10/19/20 Aspirin EC [Ecotrin Low Dose] 81 mg PO HS 11/29/20 Cholecalciferol [Vitamin D3 (25 Mcg = 1000 Iu)] 25 mcg PO DAILY 11/29/20 Albuterol Nebulized [Ventolin Nebulized] 2.5 mg INHALATION DIRECTED PRN 06/05/22 Albuterol Sulfate [Proair Respiclick] 1 puff INHALATION DIRECTED PRN 06/05/22 Budesonide-Formot 160-4.5 Mcg [Symbicort 160-4.5 Mcg Inhaler] 2 puff INHALATION BID 06/05/22 Ipratropium [place] 0.06%Nasal [Atrovent Nasal 0.06%] 2 spray EA NOSTRIL QID PRN 06/05/22 Controlled Substance Measures - Controlled Substance Measures Is patient prescribed a controlled substance at discharge?: No
== END ==
LOC: PNWHC3 10:44
PROVIDERS: ATTEND Specialist
DX: M47.812 Spondylosis without myelopathy or radiculopathy, cervical region (principal); M50.30 Other cervical disc degeneration, unspecified cervical region; Z88.1 Allergy status to other antibiotic agents; F17.200 Nicotine dependence, unspecified, uncomplicated
CPT/HCPCS: 99211

== ENCOUNTER → 2022-11-02 | Outpatient (CLI) | payer MEDICARE ==
--- NOTE | 2022-11-03 09:39 | XR ---
EXAMINATION TYPE: XR cervical spine comp DATE OF EXAM: 11/02/2022 COMPARISON: None HISTORY: 72-year-old male in 5 0.30, cervical degenerative disc disease, neck pain TECHNIQUE: 5 views FINDINGS: Surgical clips along the left upper neck and left side of the mandible as well as surgical clips eunice g the right side of the mid to lower neck. The cardiac calcifications at both carotid bifurcations. Moderate to severe uncovertebral joint and f acet arthropathy. Moderate to severe disc/endplate degenerative changes present throughout. 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 Otherwise, remaining alignment is maintained. No predental space wideni ng or prevertebral soft tissue swelling. Normal odontoid view. Moderate bony neuroforaminal narrowing on the left at C3-C4 and C4-C5 as well as C6-C7. Possibly severe at C7-T1. On the right, severe at C 3-C4, C6-C7, C7-T1. IMPRESSION: Moderate to advanced multilevel spondylotic change. Severe bony neural foraminal stenoses on the righ t as outlined above. Severe on the left at C7-T1 and moderate at additional levels. Note that the cervicothoracic junction is obscured by the patient's shoulders and not assessed. Remai ana alignment is maintained.
== END | disposition home or self-care (01) ==
LOC: RADXRMAIN 09:55
PROVIDERS: ATTEND Specialist
DX: M47.812 Spondylosis without myelopathy or radiculopathy, cervical region (principal); M99.72 Connective tissue and disc stenosis of intervertebral foramina of thoracic region; M50.30 Other cervical disc degeneration, unspecified cervical region
CPT/HCPCS: 72050

== ENCOUNTER → 2022-11-08 | Outpatient (CLI) | payer MEDICARE ==
--- NOTE | 2022-11-09 17:07 | MR ---
EXAMINATION TYPE: MR cervical spine wo con DATE OF EXAM: 11/08/2022 INDICATION: Patient age:Male; 72 years old; Reason for study: M50.30 Cervical Disc Degeneration; Neck stiffness with pain and numbness in left ar m and hand. History of surgery. COMPARISON: 11/02/2022. TECHNIQUE: Multi planar, multi sequence imaging was performed utilizing: T1-weighted, T2-weighted, an d turbo inversion recovery imaging of the cervical spine. IV Contrast: FINDINGS: Alignment: The cervical vertebral bodies have preserved heights. Alignment is within normal limits gi sheila patient positioning. Bones: Scattered degeneration changes most pronounced at C3-C5, scattered Modic endplate changes are present. C5 and C6 vertebral bodies are partially fused. Cord: The spinal cord is unremarkable with regards to their signal intensity and morphology. Spinal c ord is compressed at multiple levels secondary to degeneration described below. Discs: Scattered disc space narrowing within disc desiccation is present. C2-C3: A disc osteophyte complex is present which minimally narrows the ventral subarachnoid space. Bilateral facet and uncovertebral joint arthropathy are present with moderate right and mild left ne ural foraminal stenosis. C3-C4: A disc osteophyte complex is present with severe spinal canal stenosis. Bilateral facet and u ncovertebral joint arthropathy are present with moderate to severe bilateral neural foraminal stenosi s. C4-C5: A disc osteophyte complex is present with moderate to severe spinal canal stenosis. Bilateral facet and uncovertebral joint arthropathy are present with moderate to severe bilateral neural himanshu inal stenosis. C5-C6: No significant disc pathology. The spinal canal is patent. Bilateral facet and uncovertebral joint arthropathy are present with moderate bilateral neural foraminal stenosis. C6-C7: A disc osteophyte complex is present with severe spinal canal stenosis. Bilateral facet and u ncovertebral joint arthropathy are present with moderate to severe bilateral neural foraminal stenosi s. C7-T1: No significant disc pathology. The spinal canal is patent. No neural foraminal stenosis. T1-T2 and T2-T3 at least moderate spinal canal stenosis secondary to disc space narrowing, osteophyte s and disc bulging. There is at least [id number] neural foraminal stenosis bilaterally. T3-T4 mild spinal canal stenosis secondary to disc space narrowing, osteophytes and disc bulging. The re is at least [id number] neural foraminal stenosis bilaterally. IMPRESSION: Severe multilevel disc degeneration changes resulting in severe C3-C4 and C6-C7 spinal canal stenosis . Cord signal is felt to be maintained. Additionally there is multilevel moderate to severe and sever e neural foraminal stenosis throughout the spine.
== END ==
LOC: RADMRIMAIN 19:30
PROVIDERS: ATTEND Physician Assistant Medical
DX: M48.02 Spinal stenosis, cervical region (principal); M50.31 Other cervical disc degeneration, high cervical region; M50.323 Other cervical disc degeneration at C6-C7 level
CPT/HCPCS: 72141

== ENCOUNTER → 2022-11-13 | Outpatient (CLI) | payer MEDICARE ==
--- NOTE | 2022-11-13 14:19 | XR ---
EXAMINATION TYPE: XR abdomen 2V DATE OF EXAM: 11/13/2022 2:07 PM INDICATION: Patient age:Male; 72 years old; Reason for study: K59.09 other constipation; COMPARISON: 01/25/2021 TECHNIQUE: Two views of the abdomen were obtained. FINDINGS: Postsurgical changes of the lower lumbar spine. Hardware appears intact. Anterior abdominal wall hernia anchors are present. Multilevel disc degeneration changes throughout the spine. Moderate to large stool burden throughout the colon. The bowel gas pattern is nonspecific without dilated loo ps of small or large bowel. The osseous structures are intact. No abnormal calcifications are prese nt. Fecal material and gas are demonstrated throughout the colon and rectum. IMPRESSION: Moderate to large stool burden throughout the colon suggestive of constipation.
== END | disposition home or self-care (01) ==
LOC: RADXRMAIN 13:55
PROVIDERS: ATTEND Family Medicine
DX: K59.09 Other constipation (principal)
CPT/HCPCS: 74019

== ENCOUNTER → 2023-01-17 | Outpatient (CLI) | payer MEDICARE ==
[2023-01-17 10:35] VITALS: BP 159/88; PULSE 85; RESP 18; TEMP 98.1
--- NOTE | 2023-01-17 15:10 | P.PAINPG ---
PQRS Measure Charge Sheet Comment: A 72 yr old male w at side with a history of severe and chronic neck pain secondary to cervical DDD and spondylosis with facet arthropathy without myelopathy presents today for evaluation s/p BL RFA C3-C4, C4-C5. Pt states he experienced 85 % pain relief s/p procedure. Pain level is provoked at 0/10 in intensity. Pain is provoked by excessive lifting. Pain is alleviated with injections. Interventional pain procedures completed include BL RFA C3-C5 Patient is currently on DENIES Patient denies any side effects of the medication(s), denies excessive drowsiness or sleepiness, denies suicidal ideation and reports that the current pain medication is helping to control the pain and improve activities of daily living. Patient denies any motor or sensory deficits. Patient denies any fever or night sweats, denies any change in the bowel movements or urination. Physical Examination: -Constitutional: Cooperative. Not in acute distress . - Neurologic: Cranial nerve II to XII intact. No focal neurological deficits. - Psychatric: Alert & oriented x 3. Matching mood & appropriate affect. Judgment and insight intact. - Musculoskeletal: Cervical spine: Muscle bulk/ tone/ strength in the bilateral upper extremities normal Vertebral body tenderness to palpation over Spurling test positive Distraction test positive Facet loading test positive TTP Thoracic spine Muscle bulk / tone/ strength in the bilateral paraspinal muscles normal Vertebral body tender to palpation over Facet loading test positive TTP Lumbar spine: Motor bulk/ tone/ strength lower extremities , thigh and legs : 5/5 Deep tendon reflexes : Normal Knee Jerk. Normal Ankle Jerk . Vertebral body tenderness to palpation over Lumbar Facet Loading Test positive Straight Leg Raise: positive at 30 degrees right side/ left side Gaenslen's Test positive Sacral spine : Severe tenderness over the Sacroiliac joint: right side / left side Range of motion: Flexion of the lumbar spine <60 degrees Range of motion: Extension of the lumbar spine <20 degrees Gaenslen's Test positive R / L Julio test: positive right side / left side Thigh Thrust Test positive R / L Sacral Thrust Test positive R/ L Assessment and plan: Chronic neck pain secondary to cervical DDD, spondylosis with facet arthropathy without myelopathy Pt exhibited sufficient and substantial pain relief s/p procedure. Risks, benefits of procedure discussed and pt verbalized understanding. Admits to anticoagulant use or medical history of diabetes. Protocol for discontinuation/ continuation of medications kinjal procedure discussed. All questions answered. I have spent less than 30 minutes on patient care today. Dr Murrell was available by phone for the evaluation of this patient. The time was used to review the medical records including relevant urine studies and Prescription history (MAPs), review of the available imaging, evaluation and examination of the patient, coordination of care with the medical staff and if applicable referring physicians, as well as creation of the medical record PQRS Narrative: Smoking Status Current every day smoker Hx Alcohol Use (MH) No Home Medications: Ambulatory Orders Multivitamins, Thera [Multivitamin] 1 tab PO DAILY 04/06/16 Omeprazole [PriLOSEC] 40 mg PO HS 10/19/20 Aspirin EC [Ecotrin Low Dose] 81 mg PO HS 11/29/20 Cholecalciferol [Vitamin D3 (25 Mcg = 1000 Iu)] 25 mcg PO DAILY 11/29/20 Budesonide-Formot 160-4.5 Mcg [Symbicort 160-4.5 Mcg Inhaler] 2 puff INHALATION BID 06/05/22 Psyllium Husk [Metamucil] 0.4 gm PO DAILY 12/20/22 Vitamin C (Unknown Dose) 1 tab PO DAILY 12/20/22 buPROPion XL [Wellbutrin XL] 150 mg PO DAILY 12/20/22 Albuterol Nebulized [Ventolin Nebulized] 2.5 mg INHALATION Q6H PRN 12/22/22 Controlled Substance Measures - Controlled Substance Measures Is patient prescribed a controlled substance at discharge?: No
== END ==
LOC: PNWHC3 09:26
PROVIDERS: ATTEND Specialist
DX: M50.30 Other cervical disc degeneration, unspecified cervical region (principal); M47.812 Spondylosis without myelopathy or radiculopathy, cervical region; G89.29 Other chronic pain; F17.200 Nicotine dependence, unspecified, uncomplicated; Z79.82 Long term (current) use of aspirin; Z88.8 Allergy status to other drugs, medicaments and biological substances
CPT/HCPCS: 99211

== ENCOUNTER → 2023-02-22 | Outpatient (CLI) | payer MEDICARE ==
--- NOTE | 2023-02-23 07:48 | XR ---
EXAMINATION TYPE: XR sacrum coccyx, XR lumbar spine 2 or 3V DATE OF EXAM: 02/22/2023 4:27 PM INDICATION: Patient age:Male; 72 years old; Reason for study: M54.50 M54.30; COMPARISON: None TECHNIQUE: The sacrum and coccyx was examined in frontal and lateral projections. Spine is examined in frontal and lateral views. FINDINGS: There is no evidence of fracture or dislocation. There is no soft tissue abnormality. Mult ilevel degenerative changes of the lower spine with osteophyte formation disc space narrowing and mil d vertebral body height loss.. There is fixation changes of the lower spine including L4-L5 and S1. S urgical anterior abdominal wall mesh anchors are present. Atherosclerosis of the arterial vasculature . IMPRESSION: 1. No acute osseous pathology. 2. Postsurgical changes with hardware intact. 3. Moderate to severe degeneration changes of the spine.
== END | disposition home or self-care (01) ==
LOC: RADXRMAIN 15:54
PROVIDERS: ATTEND Family Medicine
DX: M47.26 Other spondylosis with radiculopathy, lumbar region (principal); M53.3 Sacrococcygeal disorders, not elsewhere classified
CPT/HCPCS: 72100; 72220

== ENCOUNTER → 2023-04-03 | Outpatient (CLI) | payer MEDICARE ==
--- NOTE | 2023-04-03 12:42 | MR ---
EXAMINATION TYPE: MR lumbar spine wo con DATE OF EXAM: 04/03/2023 12:18 PM COMPARISON: Radiograph 02/22/2023 MRI 10/20/2020. CLINICAL INDICATION:Male, 73 years old with history of M47.26 SPONDYLOSIS WITH RADICULOPATHY, LUMBAR ANA; Chronic lower back pain, into left buttocks. Hx surgery. TECHNIQUE: Multi planar, multi sequence imaging was performed utilizing: T1-weighted, T2-weighted, a nd turbo inversion recovery imaging of the lumbar spine. IV Contrast: None. FINDINGS: Alignment: The lumbar vertebral bodies have preserved heights and grade 2 anterolisthesis of L5 on S1 . Cord: The conus medullaris and the distal spinal cord appear unremarkable with regards to their signa l intensity and morphology. Multiple levels of cauda equina bunching throughout the lumbar spine. Bones/Discs: Fixation hardware extending from L4 to S1. Modic endplate changes are seen throughout th e spine. There is bony edema of the adjoining endplates of L2 and L3. Scattered osteophyte formation, disc space narrowing, Schmorl's nodes at facet joint arthropathy are present. Multilevel disc desicc ation is present. T12-L1: Disc bulge and facet joint arthropathy result in moderate spinal canal and moderate to severe bilateral neural foraminal stenosis. L1-L2: Disc bulge and facet joint arthropathy result in severe spinal canal and moderate to severe bi lateral neural foraminal stenosis. L2-L3: Disc bulge and facet joint arthropathy result in severe spinal canal and moderate to severe bi lateral neural foraminal stenosis. L3-L4: Disc bulge and facet joint arthropathy result in severe spinal canal and moderate to severe bi lateral neural foraminal stenosis. L4-L5: Susceptibility artifact limits evaluation at this level. Disc bulge and facet joint arthropath y result in mild spinal canal and moderate to severe bilateral neural foraminal stenosis. L5-S1: Susceptibility artifact limits evaluation at this level. Disc uncovering from grade 2 anteroli sthesis and facet joint arthropathy with mild spinal canal stenosis and mild bilateral neural foramin al stenosis. Imaging of the thoracic spine T 11-12 moderate spinal canal stenosis and moderate bilateral neural fo raminal stenosis. Other findings: None. IMPRESSION: 1. Post fixation changes with grade 2 anterolisthesis of L5 on S1 with severe bilateral neural himanshu inal stenosis at L5-S1. Similar prior in 2019. 2. Multilevel severe spinal canal stenosis secondary to disc bulging and facet joint arthropathy. Fi ndings worse at L1-L2, L2-L3 and L3-L4. There is associated moderate to neural foraminal stenosis leticia aterally at these levels. Findings are similar to prior in 2020.
== END | disposition home or self-care (01) ==
LOC: RADMRIMAIN 11:05
PROVIDERS: ATTEND Nurse Practitioner Family
DX: M47.26 Other spondylosis with radiculopathy, lumbar region (principal); M43.17 Spondylolisthesis, lumbosacral region; M99.73 Connective tissue and disc stenosis of intervertebral foramina of lumbar region
CPT/HCPCS: 72148

== ENCOUNTER → 2023-04-18 | Outpatient (CLI) | payer MEDICARE ==
--- NOTE | 2023-04-19 22:58 | CT ---
EXAMINATION TYPE: CT thor lumbar spine wo con DATE OF EXAM: 04/18/2023 COMPARISON: None HISTORY: 73-year-old male M25.572, LOW TO MID BACK PAIN TECHNIQUE: Contiguous axial scanning of the thoracic and lumbar spine without IV contrast. Coronal an d sagittal reconstructions performed. CT DLP: 982.40 mGycm Automated exposure control for dose reduction was used. FINDINGS: THORACIC SPINE: Mild emphysematous change. Mild diffuse bronchial wall thickening. LAD and RCA coronary artery calcif ications. Tiny hiatal hernia. Moderate atherosclerotic calcifications abdominal aorta with mild fusiform dilatation infrarenal port ion is 2.3 cm. Sigmoid diverticulosis. There is severe degenerative disc disease and endplate spondylosis within the visualized cervical and upper thoracic spine. Some degenerative interbody ankylosis noted at C5-C6. Moderate degenerative disc disease elsewhere in the thoracic spine. Multiple small endplates most nodes are present throughout the mid and lower thoracic spine. Trace grade 1 anterolisthesis T4-T5. Remaining alignment is maintained and vertebral body heights are preserved. Multilevel hypertrophic facet and uncovertebral joint arthropathy is also present. Small posterior disc protrusion T6-T7 and T11-T12 likely contributes to mild narrowing of the spinal canal. Vertebral body heights are preserved. On the left, severe bony neural foraminal narrowing at T1-T3 levels. Also at T9-T10. On the left, severe bony neural foraminal narrowing T1-T3 levels and also at T9-T10. LUMBAR SPINE: Vertebral body heights are preserved. Moderate degenerative disc disease throughout the lumbar spine. Hypertrophic facet arthropathy is also present. Degenerative grade 1 retrolisthesis L1-L5 levels. There is a fixed grade 2, nearly grade 3 anterolist hesis at L5-S1 with L4-S1 posterior lumbar fusion in place. Suspect at least moderate spinal canal stenosis at L2-L3 from disc bulge. Probable mild spinal canal stenosis above the fusion at L3-L4. On the left, there is severe neuroforaminal stenosis at L1-L2 and L5-S1. Moderate and additional leve ls. On the right, there is moderate to severe neuroforaminal stenosis at L5-S1, L1-L2, and L2-L3. Moderat e at both L3-L4 and L4-L5. IMPRESSION: LUMBAR SPINE: 1. FIXED GRADE 2, NEARLY GRADE 3 ANTEROLISTHESIS OF L5-S1 STATUS POST L4-S1 POSTERIOR LUMBAR FUSION. 2. Hypertrophic facet arthropathy and moderate degenerative disc disease throughout the remainder of the lumbar spine. Degenerative grade 1 retrolistheses L1-L4 levels. 3. Moderate spinal canal stenosis at L2-L3 and mild at L3-L4. 4. Variable neuroforaminal stenoses as outlined above. Thoracic spine: 5. Scattered moderate to severe degenerative disc disease. 6. Degenerative grade 1 anterolisthesis T4-T5. No vertebral compression collapse. 7. Variable neuroforaminal stenoses as outlined above.
== END | disposition home or self-care (01) ==
LOC: RADCTMAIN 15:47
PROVIDERS: ATTEND Orthopaedic Surgery
DX: M47.26 Other spondylosis with radiculopathy, lumbar region (principal); M43.17 Spondylolisthesis, lumbosacral region; M99.73 Connective tissue and disc stenosis of intervertebral foramina of lumbar region; M51.14 Intervertebral disc disorders with radiculopathy, thoracic region; M43.14 Spondylolisthesis, thoracic region; M43.26 Fusion of spine, lumbar region
CPT/HCPCS: 72128; 72131

== ENCOUNTER → 2023-05-07 | Outpatient (CLI) | payer MEDICARE ==
--- NOTE | 2023-05-07 11:07 | CT ---
EXAMINATION TYPE: CT brain wo con DATE OF EXAM: 05/07/2023 COMPARISON: none HISTORY: headaches, left sided numbness CT DLP: 1029.[address] of the brain was performed. The ventricles, basal cisterns and sulci overlying the cerebral convexities demonstrate mild enlargem ent. There is no evidence for intracranial hemorrhage or sulcal effacement. There is decreased attenuation about the periventricular white matter and deep white matter of both c erebral hemispheres, compatible with chronic small vessel ischemia. Differential diagnosis does inclu de demyelination. No mass effects are seen.No midline shift. Osseous calvarium is intact. If symptoms persist consider MRI. IMPRESSION: 1. Age related atrophic and chronic small vessel ischemic change without acute intracranial process s een at this time.
== END | disposition home or self-care (01) ==
LOC: RADCTMAIN 10:42
PROVIDERS: ATTEND Family Medicine
DX: G31.1 Senile degeneration of brain, not elsewhere classified (principal); G45.9 Transient cerebral ischemic attack, unspecified; I67.82 Cerebral ischemia
CPT/HCPCS: 70450

== ENCOUNTER → 2023-06-05 | Outpatient (CLI) | payer MEDICARE ==
--- NOTE | 2023-06-05 17:06 | US ---
EXAMINATION TYPE: US carotid duplex BILAT DATE OF EXAM: 06/05/2023 COMPARISON: NONE CLINICAL INDICATION: Male, 73 years old with history of G45.9; Right facial numbness TECHNIQUE: Carotid duplex ultrasound examination. Indirect Doppler criteria was utilized. FINDINGS: EXAM MEASUREMENTS: RIGHT: Peak Systolic Velocity (PSV) cm/sec ----- Right CCA: 84.3 ----- Right ICA: 77.4 ----- Right ECA: 103 ICA/CCA ratio: 0.92 RIGHT: End Diastole cm/sec ----- Right CCA: 21.1 ----- Right ICA: 27.4 ----- Right ECA: 22.0 LEFT: Peak Systolic Velocity (PSV) cm/sec ----- Left CCA: 84.9 ----- Left ICA: 84.9 ----- Left ECA: 103 ICA/CCA ratio: 1.00 LEFT: End Diastole cm/sec ----- Left CCA: 19.9 ----- Left ICA: 33.3 ----- Left ECA: 19.4 VERTEBRALS (direction of flow): Right Vertebral: Antegrade Left Vertebral: Antegrade Rhythm: Normal SOUND RANGING CREWMEMBER NOTES: Mild plaque bilateral bifurcations. No evidence of increased velocities. IMPRESSION: No hemodynamically significant internal carotid artery stenosis on either side. Criteria for Assigning % of Stenosis / Diameter reduction (Estimation based on the indirect measurements of the internal carotid artery velocities (ICA PSV). 1. Normal (no stenosis)=ICA PSV < 125 cm/s: ratio < 2.0: ICA EDV<40 cm/s. 2. Less than 50% stenosis=ICA PSV < 125 cm/s: ratio < 2.0: ICA EDV<40 cm/s. 3. 50 to 69% stenosis=ICA PSV of 125 to 230 cm/s: ration 2.0 ? 4.0: ICA EDV 40-100 cm/s. 4. Greater than 70% stenosis to near occlusion= ICA PSV > 230 cm/s: ratio > 4.0: ICA EDV > 100 cm/s. 5. Near occlusion= ICA PSV velocities may be low or undetectable: variable ratio and ICA EDV. 6. Total occlusion=unable to detect flow.
--- NOTE | 2023-06-06 07:26 | CA ---
Transthoracic Echo Report Name: Michael Seth Age: 73 Gender: M : 1950 Exam Date: 06/05/2023 13:02 Exam Location: [facility] Ht (in): 64 Wt (lb): 150 Ordering Physician: Carroll Monterroso MD Attending/Referring Phys: Abstract Searcher Candy Mueller [facility] Procedure CPT: Indications: G45.9 Cardiac Hx: Technical Quality: Fair Contrast 1: Total Dose (mL): Contrast 2: Total Dose (mL): MEASUREMENTS (Male / Female) Normal Values 2D ECHO LV Diastolic Diameter PLAX 4.6 cm 4.2 - 5.9 / 3.9 - 5.3 cm LV Systolic Diameter PLAX 3.1 cm IVS Diastolic Thickness 0.9 cm 0.6 - 1.0 / 0.6 - 0.9 cm LVPW Diastolic Thickness 1.0 cm 0.6 - 1.0 / 0.6 - 0.9 cm LV Relative Wall Thickness 0.4 LVOT Diameter 2.0 cm Ascending Aorta Diameter 2.9 cm M-MODE Aortic Root Diameter MM 2.4 cm LA Systolic Diameter MM 3.6 cm LA Ao Ratio MM 1.5 AV Cusp Separation MM 2.1 cm DOPPLER AV Peak Velocity 106.0 cm/s AV Peak Gradient 4.5 mmHg AV Mean Velocity 76.5 cm/s AV Mean Gradient 2.5 mmHg AV Velocity Time Integral 23.6 cm LVOT Peak Velocity 97.4 cm/s LVOT Peak Gradient 3.8 mmHg LVOT Velocity Time Integral 20.0 cm LVOT Stroke Volume 64.0 cm??? LVOT Stroke Volume Index 37.0 ml/m??? LVOT Cardiac Index 2245.4 cm???/min???m??? AV Area Cont Eq vti 2.7 cm??? AV Area Cont Eq pk 2.9 cm??? Mitral E Point Velocity 70.3 cm/s Mitral A Point Velocity 80.5 cm/s Mitral E to A Ratio 0.9 MV Deceleration Time 130.3 ms LV E' Lateral Velocity 9.7 cm/s Mitral E to LV E' Lateral Ratio 7.3 LV E' Septal Velocity 6.9 cm/s Mitral E to LV E' Septal Ratio 10.1 TR Peak Velocity 237.0 cm/s TR Peak Gradient 22.5 mmHg Right Atrial Pressure 8.0 mmHg Pulmonary Artery Systolic Pressu 30.5 mmHg Right Ventricular Systolic Press 30.5 mmHg FINDINGS Left Ventricle Normal Left ventricular size, wall thickness, systolic function with no obvious regional wall motion abnormalities. Left ventricular ejection fraction is estimated at 45-50%. Mildly reduced global left ventricular systolic function. Right Ventricle Dilated right ventricle. Low normal right ventricular global systolic function. Normal right ventricle systolic pressure Right Atrium Mild right atrial dilatation. Left Atrium Normal left atrial size. Mitral Valve Structurally normal mitral valve. Mild mitral regurgitation. Aortic Valve Trileaflet aortic valve. No aortic valve stenosis or regurgitation. Tricuspid Valve Structurally normal tricuspid valve. Mild tricuspid regurgitation. Pulmonic Valve Structurally normal pulmonic valve. Pericardium No pericardial effusion. Aorta Normal size aortic root and proximal ascending aorta. CONCLUSIONS 1. Mildly impaired left ventricular systolic function with global hypokinesis 2. Dilated right ventricle with normal right ventricle systolic pressure 3. Mild mitral and tricuspid regurgitation Previewed by: Dr. Angeline Madrigal MD (Electronically Signed) Final Date: 06 June 2023 07:25
== END | disposition home or self-care (01) ==
LOC: RADUSWWP 12:06
PROVIDERS: ATTEND Family Medicine
DX: G45.9 Transient cerebral ischemic attack, unspecified (principal)
CPT/HCPCS: 93306; 93880

== ENCOUNTER 2023-08-28 06:20 | Inpatient (IN) | payer MEDICARE ==
[2023-08-22 14:06] VITALS: BMI 26.6
[~2023-08-28 06:20] MED LIST changes: +ACETAMINOPHEN TAB 500 MG TAB PO PRN; +GABAPENTIN 300 MG CAP PO PRN; -LACTATED RINGERS 1,000 ML IV SCH; +LIDOCAINE 1% (10MG/ML) FOR IV START INTRADERMA PRN; +ONDANSETRON 4 MG/2 ML VIAL IVP PRN; +TRANEXAMIC 1,000 MG/100ML-NACL 1,000 MG in SALINE 1 100ML.BAG IVPB PRN
--- NOTE | 2023-08-28 06:57 | P.HPOR ---
History of Present Illness H&P Date: 08/20/23 .D:Date: 08/20/23 : 11:42am .T:Title: [facility] PLEASE SEE END OF NOTE FOR CODE RATIONAL AND IMAGING FINDINGS Date of :[birth year] R14 Allergies: Age: 73 year Height: 5'3" Weight: 148 lbs BP:/ BMI: 26.22 kg/m2 Occupation: Retired VAS: 6 CHIEF COMPLAINT: low back pain DOI: Chronic DOS: 2001 L4-S1 decompression and fusion Duration of current treatment regiment: n/a HISTORY : Xrays No new xrays taken in office Trauma or injury No Work-Related No Pain description sharp. Location lateral right Patient notes that their pain radiates to bilateral lower extremities Activity Modification No Hand Dominance right TREATMENTS COMPLETED: 6 weeks of PT completed? Month and Year of last PT date? No Physician directed home exercise completed? No Medications yes List: Aspirin and Motrin Alternative interventions Chiropractic: No Massage therapy: No R.I.C.E: No Brace: No Injections Yes How many? multiple Did they help? No RFA: yes 2021 SUBJECTIVE: Mr. Seth returns to the office for a pre-operative appointment preceding his [id number] decompression and fusion. Patient reports his symptoms have worsened since their last appointment. He notes 0 falls since last visit. Patient reports low back pain that radiates into the buttocks and bilateral lower extremities with the left being worse than the right. Patient reports that he had a previous L4-S1 stabilization performed in 2001. Overall the patient has seen a progressive increase in symptoms since their onset. Mr. Seth symptoms are exacerbated with activity, bending, lifting, and prolonged ambulation or sitting, due to this they notes that it is increasingly difficult for Mr. Seth to complete many of their daily tasks. Patient is having moderate sleep disturbances as well due to their ongoing pain and associated symptoms. Regarding treatments, the patient has previously trialed the above listed modalities. Patient denies trialing any other modalities at this time. For their symptoms, the patient has been taking aspirin and motrin. Otherwise the patient denies any f/c/sob/cp, no bladder or bowel retention/incontinence, no perineal numbness/tingling, and ambulates with a cane. HPI: Mr. Seth returns to the office on 06/27/23 for a recheck of their low back pain. Patient reports no changes to their symptoms since their last appointment. Patient reports that he had a previous L4-S1 stabilization performed in 2001. Overall the patient has seen a progressive increase in symptoms since their onset. Mr. Seth symptoms are exacerbated with bending, lifting, and prolonged ambulation or sitting, due to this they notes that it is increasingly difficult for Mr. Seth to complete many of their daily tasks. Patient is having mild sleep disturbances as well due to their ongoing pain and associated symptoms. Regarding treatments, the patient has previously trialed the above listed modalities. Patient denies trialing any other modalities at this time. For their symptoms, the patient has been taking aspirin and motrin. Otherwise the patient denies any f/c/sob/cp, no bladder or bowel retention/incontinence, no perineal numbness/tingling, and ambulates with a cane. Mr. Seth returns to the office on 04/12/23 for an evaluation of their low back pain and MRI lumbar results. Patient reports no changes to their symptoms since their last appointment. Patient reports that he had a previous L4-S1 stabilization performed in 2001. Overall the patient has seen a progressive increase in symptoms since their onset. Mr. Seth symptoms are exacerbated with bending, lifting, and prolonged ambulation or sitting, due to this they notes that it is increasingly difficult for Mr. Seth to complete many of their daily tasks. Patient is having mild sleep disturbances as well due to their ongoing pain and associated symptoms. Regarding treatments, the patient has previously trialed the above listed modalities. Patient denies trialing any other mo dalities at this time. For their symptoms, the patient has been taking aspirin and motrin. Otherwise the patient denies any f/c/sob/cp, no bladder or bowel retention/incontinence, no perineal numbness/tingling, and ambulates with a cane. Mr. Seth presents to the office on 03/15/23 for an evaluation of their low back pain. Patient reports a sharp and stabbing right lateral lumbar pain ongoing for 1 month with no known injury or trauma to indicate an exact onset of their symptoms. In addition to their lumbar pain, they do report that it radiates into the bilateral lower extremities, associatedwithoutnumbness and tingling. Patient reports that he had a previous L4-S1 stabilization performed in 2001. He states he feels "like one of the bottom screws on the right is biting him." Overall the patient has seen a progressive increase in symptoms since their onset. Mr. Seth symptoms are exacerbated with bending, lifting, and prolonged ambulation or sitting, due to this they notes that it is increasingly difficult for Mr. Seth to complete many of their daily tasks. Patient is having mild sleep disturbances as well due to their ongoing pain and associated symptoms. Regarding treatments, the patient has previously trialed the above listed modalities. Patient denies trialing any other modalities at this time. For their symptoms, the patient has been taking Gabpentin and motrin. Otherwise the patient denies any f/c/sob/cp, no bladder or bowel retention/incontinence, no perineal numbness/tingling, and ambulates with a cane. The patients' past social, medical, family, surgical history, as well as review of systems, have been reviewed. Please refer to the Neurosurgery History and Physical form that has been scanned in to our electronic medical record system. 14 points review of systems completed and as stated in HPI, all other systems reviewed are negative. Social History: Reviewed, see appropriate section of the chart for details. P3 Family History: Reviewed, see appropriate section of the chart for details. P2 Past Medical History: Reviewed, see appropriate section of the chart for details. P1 Current Medications: Rx: albuterol sulfate HFA 90 mcg/actuation aerosol inhaler Ref: 0 Instructions: inhale 2 puffs (180 mcg) by inhalation route every 4-6 hours as needed Rx: aspirin 81 mg chewable tablet Ref: 0 Instructions: chew 1 tablet (81 mg) by oral route once daily Rx: buPROPion HCL XL 150 mg 24 hr tablet, extended release Ref: 0 Instructions: take 1 tablet (150 mg) by oral route once daily Rx: gabapentin 300 mg capsule Ref: 0 Instructions: take 1 capsule (300 mg) by oral route 3 times per day Rx: IBU 800 mg tablet Ref: 0 Instructions: take 1 tablet (800 mg) by oral route 3 times per day with food Rx: omeprazole 40 mg capsule,delayed release Ref: 0 Instructions: take 1 capsule (40 mg) by oral route once daily before a meal Rx: Singulair 10 mg tablet Ref: 0 Instructions: take 1 tablet (10 mg) by oral route once daily in the evening Rx: Symbicort 160 mcg-4.5 mcg/actuation HFA aerosol inhaler Ref: 0 Instructions: inhale 2 puffs by inhalation route 2 times per day in the morning andevening P1 PHYSICAL EXAMINATION: General: Awake, alert, appropriate for age, in no acute distress. HEENT: No unusual neck masses around region of lateral neck triangle, thyroid, supraclavicular groove Heart: Regular rate and rhythm, normal S1, S2 and no murmur/gallop. Lungs: Clear to auscultation bilaterally with no use of accessory muscles. Extremities: Skin warm and dry without acute lesions, coloration, temperature, skin intact, no tenderness or erythema Integument: Hairy patches: ABSENT Dorsal skin dimples: ABSENT Cafe au lait spots: ABSENT Surgical incisions: well healed lumbar Palpation: Please see Pain drawing on Intake sheet for further detail. Midline spinal tenderness: No E6 Cervical Tenderness: No E6 Paralumbar tenderness: No E6 Parathoracic tenderness: No E6 Buttocks tenderness: No E6 Sacroilliac Tenderness: No POSTURAL and MUSCULO-SKELETAL EVALUATION: Coronal Balance: NEUTRAL Recumbent testing: Patient is able to lay flat on back Sagittal Balance: NEUTRAL Shoulder Profile: LEVEL Pelvic Girdle: LEVEL Neck ROM: UNRESTRICTED Lumbar ROM: RESTRICTED Shoulder ROM: Symmetrical Hip ROM: Symmetrical Knee ROM: Symmetrical Hands: Normal appearance, symmetrical Feet: Normal appearance, Symmetrical VASCULAR STATUS : LEFT RIGHT Wrist Pulses INTACT INTACT Pedal Pulses (Dors. pedis & post.tibialis) INTACT INTACT Color NORMAL NORMAL Edema Absent Absent NEUROLOGIC EXAMINATION: Mental Status:Awake and alert, fully oriented, with normal attention, concentration and memory, and fluent, appropriate speech. Cranial Nerves: I: Olfactory not tested. II: Visual acuity normal, no visual field deficit noted with confrontation. III,IV: Normal pupillary reflexes & intact extraocular movements without nystagmus. V,: Intact symmetrical facial sensation. VII: Intact symmetrical facial motor movement VIII: Hearing intact. IX,X: Intact gag, swallow, & normal voice. XI: Sternocleidomastoid, trapezius function intact. XII: Tongue midline with normal movements. L'hermitte's Sign: Negative / absent Spurling'Sign: Absent bilaterally. Cubital percussion test: Absent bilaterally. Tadeo-Tinel sign - Carpal region: Absent bilaterally. Straight Leg Raising: Absent bilaterally. Crossed straight leg raise: negative O8 Tensioning signs: present lower extremities MOTOR EXAM (0-5/5, N/T Muscle appearance: Symmetrical, without signs of atrophy or dystrophy UPPER EXTREMITY RIGHT LEFT Shoulder Abduction 5/5 5/5 Biceps 5/5 5/5 Triceps 5/5 5/5 Wrist Extension 5/5 5/5 Hand Intrnsics 5/5 5/5 Trauma Therapist 5/5 5/5 Hand and finger dexterity intact bilaterally? yes Disdiadochokinesis examination negative bilaterally? yes LOWER EXTREMITY RIGHT LEFT Hip Flexion 4/5 3/5 Knee Extension 4/5 3/5 Knee Flexion 4/5 3/5 Dorsiflexion 4/5 3/5 Plantarflexion 4/5 3/5 EHL 4/5 3/5 FHL 4/5 3/5 Toe heel walk / heel-toe walk intact while maintaining satisfactory balance? yes Squatting/straightening w/o assistance to a min of 60 degree knee flexion? No Single leg stance: intact Trendelenburg sign negative bilaterally REFLEXES(0-4/2, NT)Upper ExtremityLower Extremity Right 2 1 Left 2 1 Pathological Reflexes RIGHT LEFT Tadeo's Absent Absent Clonus Absent Absent Babinski Absent Absent Sensory system (0-4, N/T) Test type RU DILLON RL LL Joint-Position 2 2 2 2 Vibration 2 2 2 2 Pain & LT sense 2 2 2 2 Dermatomal Deficit: None None Global Global Gait and Functional Evaluation: Ambulatory aids: Cane or walker. Unable to walk now unassisted due to debility. Romberg's test: Intact bilaterally UnSteady Gait RADIOGRAPHIC STUDIES: Multiview lumbar xrays AP/LAT/FLEX/EXT with AP pelvis done at [facility] on 03/15/23 are reviewed: These demonstrate post surgical changes at L4-S1 with a residual L5-S1 grade II- III listhesis that is fused insitue. L4-[address] fusion but no IB fusion. There is flat back noted from L1-L4 due to degenerative collapse. LL: over all L1-S1 is 45 deg PI: is 62 deg showing >10 deg mismatch SVA is +3 due to flat back and kyphotic alignment. With a T1 angle of 25 deg Thoracolumbar kyphosis is noted with a sharp transition due to flat back sydrome. AP pelvis shows level pelvis without fracture. MRI taken on 04/03/23 at outside facility of the lumbar spine shows: images reviewed with the patient These demonstrate postsurgical changes at L4 through S1 with posterior fusion in place construct appears to be in good condition. Decompression noted from the bottom of L4 through the top of S1. There is no interbody fusion at L4-L5. There is severe stenosis at L1-L4 with adjacent segment disease that is severe secondary to the alignments as well as posterior based facets and ligamental hypertrophy. There is bilateral foraminal stenosis at L2-4 that is severe. There are Modic endplate changes from L1 through L4 which are noted with disc desiccation and collapse. Multilevel degenerative changes noted above degree of congential stenosis suspected based on SAC and crossection dimention of the spinal canal <1cm There are no fractures or lesions otherwise noted. CT scan taken on 04/18/23 at [facility] of the thoracic spine shows: this demonstrates again the adjacent segment disease with postsurgical changes L4 through S1 with L3 to L4 adjacent segment disease with previous spondylolisthesis L5-S1. Multilevel degenerative changes through L1 through S1 with vacuum disc phenomena, flat back, Facet arthrosis which is severe. contributing to stenosis with Flattening normal lumbar lordosis. No acute fractures or other dislocations noted. IMPRESSION: It was my pleasure to have seen and examined Michael. I reviewed the patient's clinical syndrome, physical findings, and imaging studies during the appointment today. It is my impression that the patient has a diagnosis of. 1. 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 Neurogenic claudication with lower extremity weakness and paresthesias 4. Low back pain 5. degenerative Scoliosis I outlined the natural course history without intervention and various interve ntional options. PLAN: Based on my findings I suggest the following course of action: -Advised patient to continue with supplements, health maintenance, and home exercise programs. Patient expressed understanding and will continue with these modalities. - I discussed treatment options with the patient, including operative and non- operative options, and they have elected to proceed with the following surgical procedure: Thoracic 10-Pelvis Revision decompression fusion The indications, risks, benefits, and alternatives to surgery were discussed with the patient and family at length. Specifically (but not limited to) the risks of infection, stiffness, recurrence of symptoms, need for revision surgery, local numbness, neurovascular injury, and blood clots were discussed. The patient's questions were answered.The patient would like to consider surgical options and will call the office if /when they decide to proceed. -Ambulate daily -Take medications as directed -Ice and rest for pain and swelling control. Spine Surgery Risk Review Mr. Seth is presenting for evaluation of low back pain. It was my pleasure to have seen and examined Mr. Seth. In our visit today we have had a chance to go over subjective complaints, physical examination findings and treatments including the natural course history without intervention and various interventional options. The patients imaging demonstrates: Multiview lumbar xrays AP/LAT/FLEX/EXT with AP pelvis done at [facility] on 03/15/23 are reviewed: These demonstrate post surgical changes at L4-S1 with a residual L5-S1 grade II- III listhesis that is fused insitue. L4-[address] fusion but no IB fusion. There is flat back noted from L1-L4 due to degenerative collapse. LL: over all L1-S1 is 45 deg PI: is 62 deg showing >10 deg mismatch SVA is +3 due to flat back and kyphotic alignment. With a T1 angle of 25 deg Thoracolumbar kyphosis is noted with a sharp transition due to flat back sydrome. AP pelvis shows level pelvis without fracture. MRI taken on 04/03/23 at outside facility of the lumbar spine shows: images reviewed with the patient These demonstrate postsurgical changes at L4 through S1 with posterior fusion in place construct appears to be in good condition. Decompression noted from the bottom of L4 through the top of S1. There is no interbody fusion at L4-L5. There is severe stenosis at L1-L4 with adjacent segment disease that is severe secondary to the alignments as well as posterior based facets and ligamental hypertrophy. There is bilateral foraminal stenosis at L2-4 that is severe. There are Modic endplate changes from L1 through L4 which are noted with disc desiccation and collapse. Multilevel degenerative changes noted above degree of congential stenosis suspected based on SAC and crossection dimention of the spinal canal <1cm There are no fractures or lesions otherwise noted. CT scan taken on 04/18/23 at [facility] of the thoracic spine shows: this demonstrates again the adjacent segment disease with postsurgical changes L4 through S1 with L3 to L4 adjacent segment disease with previous spondylolisthesis L5-S1. Multilevel degenerative changes through L1 through S1 with vacuum disc phenomena, flat back, Facet arthrosis which is severe. contributing to stenosis with Flattening normal lumbar lordosis. No acute fractures or other dislocations noted. On physical exam, Mr. Seth demonstrates: Patient reports a sharp and stabbing right lateral lumbar pain ongoing for 1 month with no known injury or trauma to indicate an exact onset of their symptoms. In addition to their lumbar pain, they do report that it radiates into the bilateral lower extremities, associatedwithoutnumbness and tingling. Patient reports that he had a previous L4-S1 stabilization performed in 2001. He states he feels "like one of the bottom screws on the right is biting him." Overall the patient has seen a progressive increase in symptoms since their onset. Mr. Seth symptoms are exacerbated with bending, lifting, and prolonged ambulation or sitting, due to this they notes that it is increasingly difficult for Mr. Seth to complete many of their daily tasks. Patient is having mild sleep disturbances as well due to their ongoing pain and associated symptoms. I have explained to the patient that as their condition progresses it will cause further neurological deficits and eventual paralysis. Based on the patients imaging, physical exam, and the rapid progression and disabling nature of their symptoms, at this time I recommend surgery in the form of a: [id number] Revision decompression fusion I discussed the risk and benefits of this procedure at length with Mr. Seth. The patient agreed to considered pursuing the procedure abovementioned. Prior to surgery, she should follow up with her PCP (Cardio, ID, IM etc) for clearance. Questions were invited and answered, and the patient wishes to proceed as outlined below. Currently, I am recommendin.Thoracic 10-Pelvis Revision decompression fusion 2.Follow up with PCP for surgical clearance 3.Review of surgical risks and benefits as well as an educational packet on the proposed surgical procedure. Risks: All surgical procedures come with inherent risks, including those related to positioning, anesthesia, intraoperative findings, and postoperative complications. It is important to understand that surgery does not come with any guarantee of a successful outcome as complications and adverse events are always possible. The patient was given a handout in office today discussing the surgical procedure and risks associated with the intervention, both of which were discussed with the patient. These risks include but are not limited to the following: * Experiencing same, different or even worse symptoms in back, neck, arms, or legs compared to before surgery. Requiring further surgery or other forms of treatment presently or at some time in the future at same or other levels of the intended spine surgery. On an extreme but fortunately relatively rare basis severe complication such as blindness, stroke, heart attack, temporary and/or permanent nerve injury, paralysis, coma, or may occur, sometimes without known explanation. Surgical complications may include but are not limited to risk of infection, fluid accumulation in the surgical dissection site, including a seroma or hematoma, that requires additional surgery, wound drainage, bleeding, new numbness or weakness, vision changes/loss, spinal fluid leakage, non-healing and/or infected incision, headaches, difficulty or inability to swallow, hoarseness, hemopneumothorax, pneumothorax, impotence, retrograde ejaculation, vaginal dryness; injury to nerves, spinal cord, blood vessels, lymphatics or other vital organs (i.e., bowel injury, injury to the great vessels); heterotopic bone formation; complications related to the hardware such as screws, rods, cages including misplaced hardware, device failure, instrumentation at the wrong spine level, hardware fracture/breakage, or hardware loosening; vertebral failure of the spinal column above or below the newly placed hardware; retained surgical instrumentations or devices and the need for further surgery. * Medical risks of the planned spine surgery include but are not limited to generalized Infections to the whole body or local areas outside of the surgical site (sepsis), heart attack, bleeding, anaphylaxis, meningitis, seizure, epilepsy, hearing loss, burn hirsch, laceration of the head or other areas of the body, bruising, hypersensitivity of the skin, bladder over distension; allergic reaction; shoulder injury related to positioning; fat, blood and air clots to other areas of the body like heart, lungs, brain; failure of internal organs such as lungs, kidneys, liver and excessive bleeding. If blood transfusions are necessary, note that transfusions may cause intolerance reactions such as anaphylaxis or other complex reactions. Despite best efforts, the results of spine surgery might not heal in terms of bone, soft tissues such as skin, fascia, ligaments, and joints. Additionally, in order to achieve best possible results, spine surgery may be carried out beyond the initially planned levels and involve decompression, fusion including insertion of hardware at levels other than the original intended area of surgical interest change some portions of the procedure in order to ensure the best possible outcomes. With spine surgery and spinal fusion, there are different off label uses of instrumentation (devices, implants and hardware) as well as biological substances (bone morphogenic proteins, demineralized bone matrix) as well as using extra bone from allograft sources (i.e. cadaver bone) or autograft (iliac crest bone, ribs, or the spine itself). The patient has been given information about these practices and their inherent risks and benefits. [facility] is an educational center that serves as a training facility for neurosurgical and orthopedic [employer] and Nursing students. Physician assistants are medically trained surgical providers who function in the outpatient, inpatient, and operating room setting under the direct supervision of the attending surgeon. [facility] has multiple operating rooms with single and overlapping rooms running daily. They currently function under the required guidelines as produced by the [facility] Finance Committee with regards to the overlapping rooms and will continue to comply with changes to this policy as they occur. The requirements include and are complied with as follows: (1) the critical portions of the overlapping rooms will not occur at the same time, (2) the attending physician will be physically present during the critical portions of the procedure and immediately available during the entire case, and (3) a back-up attending is designated should the primary attending not be immediately available. The patient has had a chance to review all the listed information, has been given print outs detailing this information, and has had all his/her questions answered to their satisfaction. It was my pleasure to have seen and examined Mr. Seth. In our visit today we have had a chance to go over my understanding of our patient's current condition, the natural course history without intervention and various interventional options. Questions were invited and answered, and the patient wishes to proceed as outlined above. I have seen and examined the patient for 25 minutes and we have spent more than 50% of the time in repeat and detailed counseling about the patient's condition, its natural course history with out and as much as can be predicted with surgery and re-review of various surgical treatment options. In conclusion, Mr. Seth requested we proceed with the above suggested surgery and are willing to accept risks and limitations of the suggested surgery as nature of the disease process and our best attempts at treatment for the condition. P22-[place] code rational Pt is set to undergo a revision thoracic 10 to Pelvis decompression and fusion for flat back deformity correction, severe spondylosis with ASD and severe stenosis. These are the following predicted codes for the case which are subject to change based on the needs of the patient intraoperatively. L2-3, L3-4, L4-5 posterolateral and interbody fusion (42746, 02598c1) T10 to L2 Posterolateral instrumented fusion (26195g2) Instrumentation M84-Rpsjpr (21507) Removal of segmental hardware L4-S1 (70854) Attachment to pelvis (42898) INsertion of interbody devices (90950f9) Decompressive laminectomy, complete with complete facetectomy and foraminotomy L1-2, L2-3, L3-4, L4-5 (93501, 04441h0). This is for deformity correction, wesley ral decompression and interbody placement (69293 and 80712 better describe the procedure for these levels, however is not allowed to be billed by insurance at the same levels as 51004, 38295.) Gasquet navigation will be used for screw placement (63509) Again, these codes are subject to change based on the needs of the patient in surgery. I cannot predict entire surgical needs before the surgery happens. Follow- up: Post procedure Patient Education: (Informational booklet, instructions, etc) given at today's appointment: Yes .ED:Patient Education: Y Medications Reviewed: YES In our visit today Mr. Seth and I have had a chance to go over my understanding of the patient's current condition, the natural course history without intervention and various interventional options. Questions were invited and answered, and the patient wishes to proceed as outlined above. I will be sure to keep you updated afterMr. Seth returns here for further follow-up. Thank you again for your referral. Please do not hesitate to contact me if you have any further questions. Signed and authenticated by: Meir Mora [facility] [address] [facility], [address] [address] This message is confidential, intended only for the named recipient(s) and may contain information that is privileged or exempt from disclosure under applicable law. If you are not the intended recipient(s), you are notified that the dissemination, distribution or copying of this information is strictly prohibited. If you received this message in error, please notify the sender then delete this message. Patient verbalizes understanding of the information discussed. The above note was initiated by Bert Dunn, physician recording delinquent tax collection assistant for Dr. Adrien Maurice. This note has been reviewed by Dr. Maurice, who has made his personal changes and impressions for this document. CC: Carroll Monterroso MD # SIGNED BY Meir Santiago ([facility])08/22/2023 02:38PM Past Medical History Past Medical History: Asthma, COPD, CVA/TIA, GERD/Reflux, Hyperlipidemia, Hypertension, Musculoskeletal Disorder, Osteoarthritis (OA), Pneumonia, Sleep Apnea/CPAP/BIPAP Additional Past Medical History / Comment(s): "Pre-Diabetic". Hx diverticulitis. Degenerative Disc Disease, chronic back pain. Hx TIA's-no residual effects. Chronic cough Hx ulcer. No longer using CPAP device. History of Any Multi-Drug Resistant Organisms: None Reported Past Surgical History: Back Surgery, Hernia Repair, Orthopedic Surgery, Tonsillectomy Additional Past Surgical History / Comment(s): BACK SURGERY W/ RODS & SCREWS, Cervical Fusion, VARICOCELE SURGERY, BILATERAL INGUINAL HERNIA REPAIR, BRONCHOSCOPY, multiple pain procedures in lower back and neck, lump removed from lower jaw(benign). Past Anesthesia/Blood Transfusion Reactions: No Reported Reaction Past Psychological History: No Psychological Hx Reported Smoking Status: Former smoker Past Alcohol Use History: Rare Additional Past Alcohol Use History / Comment(s): SMOKED 1-2 PPD SINCE 1964, quit 1 yr ago. Past Drug Use History: Marijuana Additional Drug Use History / Comment(s): Hx CBD oil and Marijuana occasionally, none now. - Past Family History Mother Family Medical History: No Reported History Medications and Allergies Home Medications Medication Instructions Recorded Confirmed Type Multivitamins, Thera [Multivitamin] 1 tab PO DAILY 04/06/16 08/22/23 History Omeprazole [PriLOSEC] 40 mg PO HS 10/19/20 08/22/23 History Aspirin EC [Ecotrin Low Dose] 81 mg PO HS 11/29/20 08/22/23 History Cholecalciferol [Vitamin D3 (25 25 mcg PO DAILY 11/29/20 08/22/23 History Mcg = 1000 Iu)] Budesonide-Formot 160-4.5 Mcg 2 puff INHALATION BID 06/05/22 08/22/23 History [Symbicort 160-4.5 Mcg Inhaler] Vitamin C (Unknown Dose) 1 tab PO DAILY 12/20/22 08/22/23 History buPROPion XL [Wellbutrin XL] 150 mg PO QAM 12/20/22 08/22/23 History Albuterol Nebulized [Ventolin 2.5 mg INHALATION Q6H PRN 12/22/22 08/22/23 History Nebulized] Bisoprolol-Hctz 5-6.25 mg [Ziac 1 tab PO QAM 08/22/23 08/22/23 History 5-6.25 MG] Calcium Carbonate [Calcium] 600 mg PO DAILY 08/22/23 08/22/23 History Gabapentin 300 - 900 mg PO TID PRN 08/22/23 08/22/23 History Ibuprofen 800 mg PO TID PRN 08/22/23 08/22/23 History Ipratropium [place] 0.06%Nasal 2 spray EA NOSTRIL QID PRN 08/22/23 08/22/23 History [Atrovent Nasal 0.06%] Montelukast [Singulair] 10 mg PO HS 08/22/23 08/22/23 History Allergies Allergy/AdvReac Type Severity Reaction Status Date / Time cefuroxime Allergy Nausea & Verified 08/22/23 11:57 Vomiting Physical Examination Osteopathic Statement: *. No significant issues noted on an osteopathic structural exam other than those noted in the History and Physical/Consult.
[2023-08-28] MEDS ORDERED: HYDROmorphone 0.5 MG/0.5 ML SYRINGE IVP PRN (07:00)
[2023-08-28 07:15] LABS: Glucose,Whole Blood 107 mg/dL (70-110)
[2023-08-28] MEDS ORDERED: LACTATED RINGERS 1,000 ML IV ONE ×5 (07:23→14:11)
[2023-08-28] MEDS ORDERED: MIDAZOLAM 2 MG/2 ML VIAL IVP ONE (07:44)
[2023-08-28] MEDS ORDERED: NEOSTIGMINE 1 MG/ML 10 ML VIAL ONE (08:31)
[2023-08-28] MEDS ORDERED: KETAMINE HCL IN 0.9 % NACL 50 MG/5 ML SYRINGE ONE (08:31)
[2023-08-28] MEDS ORDERED: ePHEDrine 50 MG/ML 1 ML VIAL ONE (08:31)
[2023-08-28] MEDS ORDERED: fentaNYL (PF) 50 MCG/ML 2 ML AMP ONE (08:31)
[2023-08-28] MEDS ORDERED: GLYCOPYRROLATE 0.2 MG/ML 2 ML VIAL ONE (08:31)
[2023-08-28] MEDS ORDERED: PHENYLEPHRINE 10 MG/ML VIAL ONE (08:31)
[2023-08-28] MEDS ORDERED: HYDROmorphone (PF) 1 MG/ML ONE (08:31)
[2023-08-28] MEDS ORDERED: PROPOFOL 10 MG/ML 20 ML VIAL IV ONE (08:31)
[2023-08-28] MEDS ORDERED: ROCURONIUM 10 MG/ML (5 ML VIAL) IV ONE (08:31)
[2023-08-28] MEDS ORDERED: ONDANSETRON 4 MG/2 ML VIAL ONE (08:31)
[2023-08-28] MEDS ORDERED: LIDOCAINE 1% INJ 10MG/ML (20 ML MDV) ONE (08:31)
[2023-08-28] MEDS ORDERED: PHENYLEPHRINE-0.9% NACL SYG 1,000 MCG/10 ML SYRINGE ONE (08:31)
[2023-08-28] MEDS ORDERED: TRANEXAMIC 1,000 MG/100ML-NACL PREMIX BAG ONE (08:31)
[2023-08-28] MEDS ORDERED: ALBUMIN HUMAN 5% (12.5gm) 250 ML BOTTLE IVPB ONE (08:31)
--- NOTE | 2023-08-28 08:57 | XR ---
EXAMINATION TYPE: XR chest 1V DATE OF EXAM: 08/28/2023 8:41 AM CLINICAL INDICATION:Male, 73 years old with history of line placement; [facility] COMPARISON: Chest radiographs from 01/27/2019 TECHNIQUE: XR chest 1V Frontal view of the chest. FINDINGS: Lungs/Pleura: There is no evidence of pleural effusion, focal consolidation, or pneumothorax. Pulmonary vascularity: Unremarkable. Heart/mediastinum: Cardiomediastinal silhouette is unremarkable. Musculoskeletal: No acute osseous pathology. Other findings: None Lines/Tubes: Right internal jugular central venous catheter with distal tip at the cavoatrial junction. IMPRESSION: 1. Right central venous catheter with tip in the superior vena cava. No pneumothorax. 2. No acute cardiopulmonary disease/process.
[2023-08-28] MEDS ORDERED: GENTAMICIN 80 MG in SODIUM CHLORIDE 0.9% IRRIGATIO 3,000 ML IRRIGATION ONE (09:21)
[2023-08-28] MEDS ORDERED: ceFAZolin 3,000 MG in SODIUM CHLORIDE 0.9% IRRIGATIO 3,000 ML IRRIGATION ONE (09:21)
[2023-08-28] MEDS ORDERED: THROMBIN (BOVINE) 5,000 UNIT VIAL TOPICAL ONE (09:24)
[2023-08-28] MEDS ORDERED: GELATIN SPONGE,ABSORB (LARGE) 1 EACH SPONGE TOPICAL ONE (09:24)
--- NOTE | 2023-08-28 09:51 | P.ANPRN ---
Procedure Note - Anesthesia - Invasive Line Left Arterial Line Time Out Performed: Yes (0743) Date of Procedure: 08/28/23 Time of Procedure: 07:44 Location of Patient: PreOp Preparation: Sterile Prep, Sterile Dressing Arterial Line Location: Radial (left) Ultrasound Used: No Purpose - Visualization and Identification of Vasculature: No Needle Guage: 20g Image Stored and Saved: No Narrative: Central line placement per sterile protocol utilized.
--- NOTE | 2023-08-28 09:53 | P.ANPRN ---
Procedure Note - Anesthesia - Invasive Line Right Central Line Time Out Performed: Yes (0743) Date of Procedure: 08/28/23 Time of Procedure: 07:54 Location of Patient: PreOp Preparation: Sterile Prep, Sterile Dressing Central Line Location: Internal Jugular (right) Ultrasound Used: Yes Purpose - Visualization and Identification of Vasculature: Yes Needle Guage: 18g angio Image Stored and Saved: Yes Narrative: Central line placement per sterile protocol utilized. +local +angio +cvp +jwire +uneventful dilation and introduction right IJ BREANN. Lumen bled and flushed. CXR neg for PTX
[2023-08-28] MEDS ORDERED: VANCOMYCIN 1,000 MG VIAL MISCELLANE ONE (11:50)
[2023-08-28] MEDS ORDERED: ceFAZolin 1,000 MG VIAL ONE (12:33)
[2023-08-28] MEDS ORDERED: SODIUM CHLORIDE 0.9% 100 ML BAG ONE (12:33)
--- NOTE | 2023-08-28 13:46 | XR ---
Intraoperative/procedural fluoroscopic services were provided for posterior lumbar disc fusion. Total fluoroscopy time is 34.5 seconds with a total of 9 submitted images to PACS. Total DAP 5.7453 Gycm2. Please see the operative note for further details.
[2023-08-28 14:06] LABS: ABG Base Excess 2.2 mmol/L; ABG HCO3 26 mmol/L (21-25); ABG Oxygen Saturation 99.6 % (94-97); ABG PCO2 39 mmHg (35-45); ABG PH 7.44 (7.35-7.45); ABG PO2 268 mmHg (83-108); ABG TCO2 28 mmol/L (19-24); Allen Test Performed? Yes
[2023-08-28] MEDS ORDERED: ONDANSETRON 4 MG/2 ML VIAL IVP PRN (14:18)
[2023-08-28] MEDS ORDERED: HYDROcodone/APAP 5-325MG 1 EACH TAB PO PRN (14:18)
[2023-08-28] MEDS ORDERED: NA PHOS,M-B/NA PHOS,DI-BA 133 ML ENEMA RECTAL PRN (14:18)
--- NOTE | 2023-08-28 14:25 | P.OP ---
Date of Procedure: 08/28/23 Preoperative Diagnosis: 1. 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 NEUROGENIC CLAUDIACITON 3. LOW BACK PAIN 4. LE WEAKNESS 5. COMPLEX MEDICAL PATIENT WITH MULTIPLE COMORBID CONDITIONS Postoperative Diagnosis: 1. 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 NEUROGENIC CLAUDIACITON 3. LOW BACK PAIN 4. LE WEAKNESS 5. COMPLEX MEDICAL PATIENT WITH MULTIPLE COMORBID CONDITIONS Procedure(s) Performed: 1. L2-3, L3-4, posterolateral and interbody fusion (20695, 29853) 2. T10 to L2 Posterolateral instrumented fusion with revision posteriolateral fusion L4-S1 (15550Y1) 3. Instrumentation Z21-Enhrea (89667) 4. Attachment to pelvis (97375) 5. INsertion of interbody devices (36162t9) 6. Decompressive laminectomy, complete with complete facetectomy and fora minotomy L2-3, L3-4 (94232, 51723). This is for deformity correction, neural decompression and interbody placement 7. Radha navigation will be used for screw placement (47068) 8. EXPLORATION OF FUSION L4-S1 (66035) 9. REMOVAL OF SEGMENTAL HARDWARE L4-S1 (74471) USE OF IONM ALL SCREWS TESTNG >20mA Implants: -RADHA EVEREST SCEW AND JESÚS SYSEM -GLOBUS SABLE CAGE X2 -MAGNATOS, CONTOUR, ARTHROCELL,ALLOCELL Anesthesia: GETA Surgeon: Meir Santiago Laboratory Cureman #1: Marshal Anthony (was present and assisted with all aspects of the case from positioning to closure) Estimated Blood Loss (ml): 1,100 IV fluids (ml): 3,500 Urine output (ml): 450 Pathology: none sent Condition: stable Disposition: PACU Indications for Procedure: Mr. Seth is presenting for evaluation of low back pain. It was my pleasure to have seen and examined Mr. Seth. In our visit today we have had a chance to go over subjective complaints, physical examination findings and treatments including the natural course history without intervention and various interventional options. The patients imaging demonstrates: Multiview lumbar xrays AP/LAT/FLEX/EXT with AP pelvis done at [facility] on 03/15/23 are reviewed: These demonstrate post surgical changes at L4-S1 with a residual L5-S1 grade II- III listhesis that is fused insitue. L4-[address] fusion but no IB fusion. There is flat back noted from L1-L4 due to degenerative collapse. LL: over all L1-S1 is 45 deg PI: is 62 deg showing >10 deg mismatch SVA is +3 due to flat back and kyphotic alignment. With a T1 angle of 25 deg Thoracolumbar kyphosis is noted with a sharp transition due to flat back sydrome. AP pelvis shows level pelvis without fracture. MRI taken on 04/03/23 at outside facility of the lumbar spine shows: images reviewed with the patient These demonstrate postsurgical changes at L4 through S1 with posterior fusion in place construct appears to be in good condition. Decompression noted from the bottom of L4 through the top of S1. There is no interbody fusion at L4-L5. There is severe stenosis at L1-L4 with adjacent segment disease that is severe secondary to the alignments as well as posterior based facets and ligamental hypertrophy. There is bilateral foraminal stenosis at L2-4 that is severe. There are Modic endplate changes from L1 through L4 which are noted with disc desiccation and collapse. Multilevel degenerative changes noted above degree of congential stenosis suspected based on SAC and crossection dimention of the spinal canal <1cm There are no fractures or lesions otherwise noted. CT scan taken on 04/18/23 at [facility] of the thoracic spine shows: this demonstrates again the adjacent segment disease with postsurgical changes L4 through S1 with L3 to L4 adjacent segment disease with previous spondylolisthesis L5-S1. Multilevel degenerative changes through L1 through S1 with vacuum disc phenomena, flat back, Facet arthrosis which is severe. contributing to stenosis with Flattening normal lumbar lordosis. No acute fractures or other dislocations noted. On physical exam, Mr. Seth demonstrates: Patient reports a sharp and stabbing right lateral lumbar pain ongoing for 1 month with no known injury or trauma to indicate an exact onset of their symptoms. In addition to their lumbar pain, they do report that it radiates into the bilateral lower extremities, associatedwithoutnumbness and tingling. Patient reports that he had a previous L4-S1 stabilization performed in 2001. He states he feels "like one of the bottom screws on the right is biting him." Overall the patient has seen a progressive increase in symptoms since their onset. Mr. Seth symptoms are exacerbated with bending, lifting, and prolonged ambulation or sitting, due to this they notes that it is increasingly difficult for Mr. Seth to complete many of their daily tasks. Patient is having mild sleep disturbances as well due to their ongoing pain and associated symptoms. I have explained to the patient that as their condition progresses it will cause further neurological deficits and eventual paralysis. Based on the patients imaging, physical exam, and the rapid progression and disabling nature of their symptoms, at this time I recommend surgery in the form of a: [id number] Revision decompression fusion I discussed the risk and benefits of this procedure at length with Mr. Seth. The patient agreed to considered pursuing the procedure abovementioned. Prior to surgery, she should follow up with her PCP (Cardio, ID, IM etc) for clearance. Questions were invited and answered, and the patient wishes to proceed as outlined below. Currently, I am recommendin.Thoracic 10-Pelvis Revision decompression fusion 2.Follow up with PCP for surgical clearance Description of Procedure: rEVISION I67-Mzvohz Decompression and fusion KRISTEL The patient was seen and examined in the preoperative area. All preoperative protocols were followed. Informed consent was obtained, risks and benefits of the procedure were discussed at length. Risks including bleeding infection damage to the surrounding tissue and risk of re-operation were discussed with the patient. Risk of anesthesia up to and including was discussed with the patient. These are outlined in the risk review. They were willing to accept these risks and all the risks of surgery. The patient was given a weight-based dose of antibiotics in the form of 3 g Ancef. The patient was seen and evaluated by the anesthesia team who deemed them fit for surgery. The site was marked, the patient was willing to proceed with the procedure. The patient was transferred to the operative suite by the Department of anesthesia. They were then drifted off to sleep by the department anesthesia and GETA was performed. The patient tolerated this well. Mota catheter was placed by nursing staff, a-traumatically. Once confirmation of lines and ventilation the patient was transferred to a prone Trios spine table very carefully. The head was secured and stable. Xray confirmed alignment. All bony prominences including wrists, elbows, axilla, chest, hips, and thighs, and feet were padded very well. Special attention was paid to the genitalia, and th tamiko were padded accordingly. SCDs were placed on bilateral lower extremities and were connected. Arms were well padded and placed at 90/90 up and out and well padded. Safety strap and tape placed on the patient. Once in position, again we confirmed good ventilation capabilities and that lines were running appropriately. The patients lumbosacral pelvic was then exposed. Hair was removed for incision. 1010s were placed outlining the incision site. Standard alcohol was used to clean the incision site and allowed to dry. C-arm was used to bio-shasta the patient and confirm level for incision which was marked with a skin marker. Operative briefing was performed with all teams and everyone in agreement to proceed. The patient was then prepped and draped in a normal sterile fashion. Timeout was then performed, and all parties agreed with the procedure to be performed. Midline skin incision was then made over the previously bookmarked area and dissection taken down to the lumbosacral fascia which was identified and cleaned with a thurman. Once midline was identified, fasciotomy was made over the SP of H84-idpjjg. Subperiosteal dissection was then taken down over the lamina and facet joints and TPs were exposed and trough made posterolateral. TPs were then decorticated L1-S1 and sacral ala with a high speed dragan for lateral fusion. Dissection was taken out over the sacrum to the pelvis. SI joint identified and modified Walker starting point for pelvic screws identified as well. Retractors placed. Wound was irrigated and lateral image with penfield 4 placed at the pars of L4 confirmed levels for operation. Old hardware was encountered and exposed and then removed without issues. There b/l S1 screws as well as L4 screwsws werer loose at this time. There was good fusion noted however at L5- S1. L4-5 was questionable at this time. The area was then debrided of scar tissue with rongure. SP clamp was then placed for the [employer] navigation tracker and secured at L2 for the first set of screws. The wound was then filled with NSS and Z-drape placed. A 3D Zhiem spin was then obtained and registered. Once confirmation of accuracy screws were then placed from T10-L2 using navigation. Navigated high speed dragan was used to make a pest control pilot hole followed by a navigated awl-tap passed through the pedicle into the body. A ball tip probe then confirmed within the pedicle. Globus Screws then measured and placed using a navigated screwdriver. After screws were placed from T10-L2 the tracker was replaced at S1 and a second 3D Zhiem spin was then obtained and registered. Once confirmation of accuracy screws were then placed from L3-Pelvis using navigation. AP image confirmed safe placement of screws. Lateral images as well as navigation were then used to alexx ce bilateral pelvic screws. Starting point selected just lateral to the SI joint and S2 pseudo facet. Lateral image taken and dragan used to make the pest control pilot hole. Gearshift then used to pass into the pelvis under lateral imaging just above the sciatic notch. 30 deg/30deg iliac oblique then taken to confirm within the teardrop and ball tip probe used to probe good bone. Screw was then measured and selected and placed under lateral imaging. This was repeated on the contralateral side. Screws were then visualized and were safe. A second Zheim spin was obtained and confirmed safe screw placement. Screws were then tested, and reliably tested screws tested above 20 mA. The wound was irrigated and attention was turned to decompression, correction and interbody fusion. At L3-4, bilateral laminectomy, complete facetectomy and foraminotomy was performed as described above. Again, exuberant scar tissue and bone formation was encountered and at this level . There was also a large disc osteophyte complex that was identified once disc space was found. The dura was carefully dissected off this anteriorly and b/l. Once encountered, the disc space was then accessed in a similar fashion and neural elements protected. Intradiscal, 3 column osteotomies, for deformity correction was then performed again at this level as described above. Once completed and complete discectomy performed there was good mobility at this level. Cage was then sized and selected. Autograft and allograft was then placed anterior in the disc space and the cage was then inserted and impacted into place under lateral. AP image, as before, was taken to ensure midline placement. The cage was then expanded into position. The wound was irrigated. Meticulous hemostasis then performed, and attention turned to L2-3. At L2-3 again bilateral laminectomy, complete facetectomy and foraminotomy were performed along with DEOMPRESSOIN for deformity correction. This was her worst level of deformity and differential cage placement was use as well to help with correction. The neural elements were less scared at this level; however, it was very unstable. The elements were then protected, and disc space accessed. Sequential shaving performed until desired height and lordosis. Cage selected, and graft placed anterior to the cage within the disc space. Cage was then placed under lateral image, expanded and had good height, lordosis and deformity correction. The wound was irrigated, and meticulous hemostasis performed once again. We then proceeded to L2-3 level. AP imaging confirmed good placement of all cages and good reduction and coronal balance restored. Screws all in good position. Attention was then drawn to jesús placement and further reduction. Rods were selected, measured, cut and bent to appropriate lordosis. They were then secured into pelvic screws b/l. Sequential reduction then done into each screw and set screw placed. Set screws were then final tightened and lateral image s howed good lordosis reduction with increase around 15-20 deg from starting. Once rods were secured, cross links were selected and placed and final tightened. The wound was then irrigated with 3L Ancef irrigation, 3L gentamicin irrigation and 3L NSS. Surgicel was then placed on the dura, which was inspected and had no injury. Then, in the posterolateral gutter was placed, MagnatOs, Autograft and allograft. This was impacted into position and surgical placed over it. 2g Vanco powder was then placed deep in the wound. Two deep, subfascial drains were placed and secured with a stitch. We then proceeded with layered closure. #1 PDS placed in the deep fascia followed by a running unidirectional 0 stratafix. 0 Vicryl placed in the deep subq, 2-0 placed in the superficial subq and augustin placed in the skin. The wound edges approximated very well. The wound was then cleaned with ETOH and dressed with optifoam dressing, drain sponges and tegaderms. Drains sewed into position. IONM confirmed no changes. The patient was then transferred off the [facility] spine table to their hospital bed a-traumatically. Drains continued to hold suction. The patient was then extubated and transferred to the ICU in stable condition having tolerated the procedure with no complications.
[2023-08-28 15:36] LABS: Glucose,Whole Blood 163 mg/dL (70-110)
[2023-08-28] MEDS: LACTATED RINGERS 1,000 ML IV SCH (16:09)
[2023-08-28] MEDS: HYDROcodone/APAP 10-325MG 1 EACH TAB PO PRN (16:13)
[2023-08-28] MEDS: GABAPENTIN 300 MG CAP PO SCH ×2 (16:13→21:28)
[2023-08-28] MEDS: ACETAMINOPHEN TAB 325 MG TAB PO SCH ×2 (17:19→23:22)
[2023-08-28] MEDS: HYDROmorphone 1 MG/ML 1 ML SYRINGE IVP PRN ×2 (18:48→23:22)
[2023-08-28] MEDS ORDERED: BENZOCAINE/MENTHOL LOZENG 1 EACH LOZENGE MUCOUS MEM PRN (22:05)
[2023-08-29] MEDS: HYDROmorphone 1 MG/ML 1 ML SYRINGE IVP PRN ×4 (01:34→16:08)
[2023-08-29] MEDS: HYDROcodone/APAP 10-325MG 1 EACH TAB PO PRN ×4 (08:02→21:50)
[2023-08-29] MEDS: ACETAMINOPHEN TAB 325 MG TAB PO SCH ×3 (08:03→17:52)
[2023-08-29] MEDS: LACTATED RINGERS 1,000 ML IV SCH (08:03)
[2023-08-29 08:12] LABS: Basophils % (A) 0 %; Eosinophils # (A) 0.1 k/uL (0-0.7); Eosinophils % (A) 1 %; HCT 29.8 % (39.0-53.0); HGB 9.8 gm/dL (13.0-17.5); Lymphocytes # (A) 2.4 k/uL (1.0-4.8); Lymphocytes % (A) 16 %; MCH 29.4 pg (25.0-35.0); MCV 89.2 fL (80.0-100.0); Mean Platelet Volume 9.8; Monocytes # (A) 0.8 k/uL (0-1.0); Monocytes % (A) 6 %; Neutrophils # (A) 11.3 k/uL (1.3-7.7); Neutrophils % (A) 76 %; Platelet Count 162 k/uL (150-450); RBC 3.35 m/uL (4.30-5.90); RDW 13.1 % (11.5-15.5); WBC 14.8 k/uL (3.8-10.6)
--- NOTE | 2023-08-29 08:16 | P.CONS ---
History of Present Illness - Reason for Consult Consult date: 08/29/23 Medical management - Chief Complaint DDD - History of Present Illness This is 73-year-old white male with known history of COPD he was here postop day #1 for spinal correction. The patient feels appropriate postoperative pain no shortness of breath no saddle numbness no lower extremity tingling stated. Consult for medical management. Review of Systems Constitutional: Denies chills, Denies fever Eyes: denies blurred vision, denies pain Ears, nose, mouth and throat: Denies headache, Denies sore throat Cardiovascular: Denies chest pain, Denies shortness of breath Gastrointestinal: Denies abdominal pain, Denies diarrhea, Denies nausea, Denies vomiting Musculoskeletal: Reports low back pain, Denies myalgias Past Medical History Past Medical History: Asthma, COPD, CVA/TIA, GERD/Reflux, Hyperlipidemia, Hypertension, Musculoskeletal Disorder, Osteoarthritis (OA), Pneumonia, Sleep Apnea/CPAP/BIPAP Additional Past Medical History / Comment(s): "Pre-Diabetic". Hx diverticulitis. Degenerative Disc Disease, chronic back pain. Hx TIA's-no residual effects. Chronic cough Hx ulcer. No longer using CPAP device. History of Any Multi-Drug Resistant Organisms: None Reported Past Surgical History: Back Surgery, Hernia Repair, Orthopedic Surgery, Tonsillectomy Additional Past Surgical History / Comment(s): BACK SURGERY W/ RODS & SCREWS, Cervical Fusion, VARICOCELE SURGERY, BILATERAL INGUINAL HERNIA REPAIR, BRONCHOSCOPY, multiple pain procedures in lower back and neck, lump removed from lower jaw(benign). Past Anesthesia/Blood Transfusion Reactions: No Reported Reaction Past Psychological History: No Psychological Hx Reported Smoking Status: Former smoker Past Alcohol Use History: Rare Additional Past Alcohol Use History / Comment(s): SMOKED 1-2 PPD SINCE 1964, quit 1 yr ago. Past Drug Use History: Marijuana Additional Drug Use History / Comment(s): Hx CBD oil and Marijuana occasionally, none now. - Past Family History Mother Family Medical History: No Reported History Medications and Allergies Home Medications Medication Instructions Recorded Confirmed Type Multivitamins, Thera [Multivitamin] 1 tab PO DAILY 04/06/16 08/22/23 History Omeprazole [PriLOSEC] 40 mg PO HS 10/19/20 08/22/23 History Aspirin EC [Ecotrin Low Dose] 81 mg PO HS 11/29/20 08/22/23 History Cholecalciferol [Vitamin D3 (25 25 mcg PO DAILY 11/29/20 08/22/23 History Mcg = 1000 Iu)] Budesonide-Formot 160-4.5 Mcg 2 puff INHALATION BID 06/05/22 08/22/23 History [Symbicort 160-4.5 Mcg Inhaler] Vitamin C (Unknown Dose) 1 tab PO DAILY 12/20/22 08/22/23 History buPROPion XL [Wellbutrin XL] 150 mg PO QAM 12/20/22 08/22/23 History Albuterol Nebulized [Ventolin 2.5 mg INHALATION Q6H PRN 12/22/22 08/22/23 History Nebulized] Bisoprolol-Hctz 5-6.25 mg [Ziac 1 tab PO QAM 08/22/23 08/22/23 History 5-6.25 MG] Calcium Carbonate [Calcium] 600 mg PO DAILY 08/22/23 08/22/23 History Gabapentin 300 - 900 mg PO TID PRN 08/22/23 08/22/23 History Ibuprofen 800 mg PO TID PRN 08/22/23 08/22/23 History Ipratropium [place] 0.06%Nasal 2 spray EA NOSTRIL QID PRN 08/22/23 08/22/23 History [Atrovent Nasal 0.06%] Montelukast [Singulair] 10 mg PO HS 08/22/23 08/22/23 History Allergies Allergy/AdvReac Type Severity Reaction Status Date / Time cefuroxime Allergy Nausea & Verified 08/22/23 11:57 Vomiting Physical Exam Vitals: Vital Signs Temp Pulse Pulse Pulse Resp BP BP 08/29/23 07:00 82 13 99/65 08/29/23 06:00 98 18 101/57 08/29/23 05:00 77 13 89/67 08/29/23 04:00 75 14 89/67 08/29/23 03:00 76 14 94/59 08/29/23 02:00 98 20 89/67 08/29/23 01:00 78 18 08/29/23 00:00 97.8 F 92 23 08/28/23 23:39 74 17 08/28/23 23:00 70 17 08/28/23 22:00 69 15 08/28/23 21:00 97.7 F 84 17 08/28/23 20:00 69 13 08/28/23 19:00 69 13 136/86 08/28/23 18:00 79 19 136/78 08/28/23 17:00 81 16 121/77 08/28/23 16:29 74 16 08/28/23 16:18 74 16 121/77 08/28/23 16:00 68 15 117/67 08/28/23 15:33 08/28/23 15:08 66 16 111/61 08/28/23 14:53 71 16 107/59 08/28/23 14:38 65 16 95/59 08/28/23 14:23 70 16 70/46 08/28/23 14:18 97.5 F L 75 12 117/67 08/28/23 14:11 97.1 F L 67 16 08/28/23 08:19 67 18 BP BP Pulse Ox 08/29/23 07:00 95 08/29/23 06:00 96 08/29/23 05:00 97 08/29/23 04:00 97 08/29/23 03:00 96 08/29/23 02:00 93 L 08/29/23 01:00 95 08/29/23 00:00 96 08/28/23 23:39 94 L 08/28/23 23:00 95 08/28/23 22:00 97 08/28/23 21:00 96 08/28/23 20:00 97 08/28/23 19:00 95 08/28/23 18:00 97 08/28/23 17:00 96 08/28/23 16:29 96 08/28/23 16:18 142/61 98 08/28/23 16:00 95 08/28/23 15:33 91 L 08/28/23 15:08 114/48 99 08/28/23 14:53 98/50 100 08/28/23 14:38 120/55 100 08/28/23 14:23 70/42 100 08/28/23 14:18 135/50 97 08/28/23 14:11 122/68 100 08/28/23 08:19 138/79 989 H Intake and Output 08/28/23 08/29/23 08/29/23 22:59 06:59 14:59 Intake Total 1090 260 20 Output Total 668 910 50 Balance 422 -650 -30 Intake: IV 740 260 20 Lactated Ringers 1,000 ml 140 160 20 @ 20 mls/hr IV .Q24H [facility] Rx#:[id number] ceFAZolin 2 gm In Sodium 100 100 Chloride 0.9% 50 ml @ 100 mls/hr IVPB ONCE PRN Rx# :[id number] Oral 350 Output: Drainage 300 460 Back 300 460 Urine 368 450 50 Other: Voiding Method Indwelling Catheter Indwelling Catheter Weight 71.2 kg ABP, PAP, CO, CI - Last 8 Hours Arterial Blood Pressure 84/49 Arterial Blood Pressure 87/53 Arterial Blood Pressure 91/50 Arterial Blood Pressure 99/50 Arterial Blood Pressure 120/53 Arterial Blood Pressure 105/47 - Constitutional General appearance: cooperative - EENT Eyes: EOMI - Neck Neck: no lymphadenopathy - Respiratory Respiratory: bilateral: diminished - Cardiovascular Rhythm: regular Heart sounds: normal: S1, S2 Abnormal Heart Sounds: no S3 Gallop - Gastrointestinal General gastrointestinal: soft, no tenderness - Integumentary Integumentary: no cellulitis Results CBC & Chem 7: 08/29/23 07:45 Labs: Abnormal Lab Results - Last 24 Hours (Table) 08/28/23 08/28/23 08/29/23 Range/Units 10:15 15:33 07:45 WBC 14.8 H (3.8-10.6) k/uL RBC 3.35 L (4.30-5.90) m/uL Hgb 9.8 L (13.0-17.5) gm/dL Hct 29.8 L (39.0-53.0) % Neutrophils # 11.3 H (1.3-7.7) k/uL ABG pO2 268 H (83-108) mmHg ABG HCO3 26 H (21-25) mmol/L ABG Total CO2 28 H (19-24) mmol/L ABG O2 Saturation 99.6 H (94-97) % POC Glucose (mg/dL) 163 H (70-110) mg/dL Assessment and Plan Assessment: Degenerative disc disease COPD Hypertension History of TIA Former smoker Plan: Continue normal pulmonary toilet with postop protocol. Pain management management per orthopedics. Check CBC and CMP in a.m. Reconcile medications. We'll continue follow from a medical perspective. Physical therapy today.
--- NOTE | 2023-08-29 08:24 | P.PN ---
Subjective Progress Note Date: 08/29/23 Principal diagnosis: 1. 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 Neurogenic claudication with lower extremity weakness and paresthesias 4. Low back pain 5. Degenerative scoliosis Patient seen and examined this morning. Patient is resting completely in bed. He does have complaint of mid back pain, medication has been reviewed. Surgical incision to the thoracic or lumbar spine, Hemovac is present at the right of the incision with [address] output overnight. Place Hemovac at half compression. Patient does report improvement into the left lower extremity since procedure, he has had decrease of pain and numbness/tingling. Prescription for TLSO brace has been placed in chart. Informed patient that he will be working with physical therapy today. Patient does not need TLSO brace to get up and about. Love catheter may be removed once patient is ambulatory. Vital signs stable at this time. Awaiting lab results. No acute concerns. Objective - Vital Signs Vital signs: Vital Signs Temp 97.8 F 08/29/23 00:00 Pulse 82 08/29/23 07:00 Resp 13 08/29/23 07:00 BP 99/65 08/29/23 07:00 Pulse Ox 95 08/29/23 07:00 FiO2 Intake & Output 08/28/23 08/29/23 08/29/23 18:59 06:59 18:59 Intake Total 3462 340 20 Output Total 1910 1218 50 Balance 1552 -878 -30 Weight 71.2 kg Intake: IV 3112 340 20 Lactated Ringers 1,000 ml 60 240 20 @ 20 mls/hr IV .Q24H [facility] Rx#:[id number] ceFAZolin 2 gm In Sodium 100 100 Chloride 0.9% 50 ml @ 100 mls/hr IVPB ONCE PRN Rx# :[id number] Oral 350 Output: Drainage 150 610 Back 150 610 Urine 660 608 50 Estimated Blood Loss 1100 Other: Voiding Method Indwelling Catheter Indwelling Catheter ABP, PAP, CO, CI - Last Documented Arterial Blood Pressure 84/49 - Exam Physical Examination General: The patient is awake and alert, in no acute distress Skin: Skin is warm and dry with no obvious rashes or lesions. Surgical incision to the thoracolumbar spine, Hemovac is present to the right of the incision with 560 mL output overnight. Eye: Pupils are equal, round and reactive to light, extra-ocular movements are intact; there is normal conjunctiva bilaterally. Neck: The neck is supple, there is no tenderness and ROM intact. Cardiovascular: There is a regular rate and rhythm. No murmur, rub or gallop is appreciated. Respiratory: Lungs are clear to auscultation, respirations are non-labored, breath sounds are equal. Gastrointestinal: Soft, non-distended, non-tender abdomen. Back: There is mild tenderness to palpation in the paralumbar and buttocks region. There is no obvious deformity . Musculoskeletal: ROM limited secondary to pain and stiffness from surgical procedure. Muscle strength in all major muscle groups of bilateral upper extremities 5/5, bilateral lower extremities 4/5. Neurological: CN 2-12 intact. There are no obvious motor or sensory deficits. Movement and coordination equal and intact. Sensory exam to light touch intact C5-T1 and intact from L2-S1. Reflexes 2/4 in bilateral upper and lower extremities. Negative Hoffmans, babinski, and clonus signs. Psychiatric: Cooperative, appropriate mood & affect, normal judgment. - Labs Labs: Abnormal Lab Results - Last 24 Hours (Table) 08/28/23 08/28/23 Range/Units 10:15 15:33 ABG pO2 268 H (83-108) mmHg ABG HCO3 26 H (21-25) mmol/L ABG Total CO2 28 H (19-24) mmol/L ABG O2 Saturation 99.6 H (94-97) % POC Glucose (mg/dL) 163 H (70-110) mg/dL Assessment and Plan Assessment: Postop day 1: Revision [id number] decompression and fusion 1. 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 Neurogenic claudication with lower extremity weakness and paresthesias 4. Low back pain 5. Degenerative scoliosis Plan: -Appreciate automation consultant and team management. -Activity: Ambulate QID, OOB all meals, up and about, limit lifting bending twisting to less than 5 lbs. Use walker or cane if needed for stability. -Daily PT/OT, increase ambulation strength and balance. -Brace when up and about, not needed in bed or chair -Prescription for a TLSO brace has been placed in chart -Pain control: Adequate at this time -Meds: reviewed -GI ppx: senna, Miralax -DC love when up and about, bedside commode if needed -DVT PPX: Heparin -Hygiene: Shower today. Maintain dressing clean and dry. Meticulous cleaning after BMs away from the incision site -Drains: Maintain for now. Continue to monitor and record output q shift. -Encourage IS 10x/hr -Dispo: Clinically pending *I reviewed and discussed this case with my attending Dr. Santiago, whom has reviewed this chart and films and is in agreement with assessment and plan of care as outlined above. I have personally seen and examined the patient, performed the documentation and the assessment and plan as written. Number of minutes spent on the visit: 20m.
[2023-08-29 08:33] LABS: African American GFR (CKD) >90 (>60 ml/min/1.73 sqM); Anion Gap 8 mmol/L; Blood Urea Nitrogen 19 mg/dL (9-20); Calcium 7.9 mg/dL (8.4-10.2); Carbon Dioxide 26 mmol/L (22-30); Chloride 101 mmol/L (98-107); Glucose 122 mg/dL (74-99); Non-African American GFR(CKD) 88 (>60 ml/min/1.73 sqM); Potassium 4.1 mmol/L (3.5-5.1); Sodium 135 mmol/L (137-145)
[2023-08-29] MEDS: SENNOSIDES-DOCUSATE SODIUM 1 EACH TAB PO SCH (09:20)
[2023-08-29] MEDS: GABAPENTIN 300 MG CAP PO SCH ×3 (09:20→21:50)
[2023-08-29] MEDS: MAGNESIUM HYDROXIDE 2,400 MG/30 ML CUP PO SCH (09:20)
--- NOTE | 2023-08-29 10:43 | CT ---
EXAMINATION TYPE: CT lumbar spine wo con DATE OF EXAM: 08/29/2023 COMPARISON: 04/18/2023 HISTORY: S/P [id number] decompression/fusion CT DLP: 1378.[address] of the lumbar spine was performed. Bone and soft tissue window settings are submitted as well as coronal and sagittal reconstructions. Decompression surgical procedure noted noted extending from T10 through L5 S1 with pedicular screws noted. There is extensive streak artifact limiting evaluation. Skin auugstin are in place. Postoperati ve soft tissue changes seen with small posterior seroma noted. Intervertebral spacers identified at L 2-3 and L3-4. Grade 2 anterolisthesis L5 on S1 grade 2 type. IMPRESSION: 1. Postoperative changes as noted.
[2023-08-29] MEDS: CYCLOBENZAPRINE 5 MG TAB PO PRN ×2 (13:29→21:50)
[2023-08-29] MEDS: HEPARIN SODIUM,PORCINE 5,000 UNIT/ML 1 ML VIAL SQ SCH (21:49)
[2023-08-29] MEDS: HYDROmorphone 0.5 MG/0.5 ML SYRINGE IVP PRN (23:59)
[2023-08-30] MEDS: bisacodyL 10 MG SUPP RECTAL PRN
[2023-08-30] MEDS: HYDROcodone/APAP 10-325MG 1 EACH TAB PO PRN ×5 (01:56→20:08)
[2023-08-30] MEDS: CYCLOBENZAPRINE 5 MG TAB PO PRN ×4 (01:56→16:37)
[2023-08-30] MEDS: LACTATED RINGERS 1,000 ML IV SCH (05:23)
[2023-08-30 05:44] LABS: HCT 28.3 % (39.0-53.0); HGB 9.1 gm/dL (13.0-17.5); MCH 28.9 pg (25.0-35.0); MCHC 32.1 g/dL (31.0-37.0); Mean Platelet Volume 10.2; Platelet Count 137 k/uL (150-450); RBC 3.15 m/uL (4.30-5.90); RDW 13.2 % (11.5-15.5); WBC 14.9 k/uL (3.8-10.6)
[2023-08-30 06:08] LABS: African American GFR (CKD) >90 (>60 ml/min/1.73 sqM); Anion Gap 7 mmol/L; Blood Urea Nitrogen 12 mg/dL (9-20); Calcium 8.1 mg/dL (8.4-10.2); Carbon Dioxide 29 mmol/L (22-30); Chloride 100 mmol/L (98-107); Glucose 121 mg/dL (74-99); Non-African American GFR(CKD) >90 (>60 ml/min/1.73 sqM); Potassium 4.2 mmol/L (3.5-5.1); Sodium 136 mmol/L (137-145)
[2023-08-30] MEDS: ACETAMINOPHEN TAB 325 MG TAB PO SCH ×4 (06:09→16:32)
[2023-08-30] MEDS: GABAPENTIN 300 MG CAP PO SCH ×3 (07:58→22:26)
[2023-08-30] MEDS: SENNOSIDES-DOCUSATE SODIUM 1 EACH TAB PO SCH (07:58)
[2023-08-30] MEDS: MAGNESIUM HYDROXIDE 2,400 MG/30 ML CUP PO SCH (07:58)
[2023-08-30] MEDS: HEPARIN SODIUM,PORCINE 5,000 UNIT/ML 1 ML VIAL SQ SCH ×2 (07:58→20:12)
--- NOTE | 2023-08-30 08:15 | P.PN ---
Subjective Progress Note Date: 08/30/23 Principal diagnosis: 1. 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 Neurogenic claudication with lower extremity weakness and paresthesias 4. Low back pain 5. Degenerative scoliosis Patient seen and examined this morning. Patient is sitting up in chair for breakfast. He reports that his pain is better managed at this time. Surgical incision to the thoracic or lumbar spine, dressing has mild shadowing. Hemovac is present at the right of the incision with 100 mL output overnight. Continue with Hemovac at half compression. Patient does report improvement into the lower extremities since procedure, he has had decrease of pain and numbness/tingling. Love catheter to be discontinued today. Vital signs stable at this time. No acute concerns. Objective - Vital Signs Vital signs: Vital Signs Temp 98.2 F 08/30/23 07:56 Pulse 100 08/30/23 07:00 Resp 13 08/30/23 07:00 BP 98/65 08/30/23 07:00 Pulse Ox 96 08/30/23 07:00 FiO2 Intake & Output 08/29/23 08/30/23 08/30/23 18:59 06:59 18:59 Intake Total 820 450 150 Output Total 1025 1400 30 Balance -205 -950 120 Weight 70.3 kg Intake: IV 20 Lactated Ringers 1,000 ml 20 @ 20 mls/hr IV .Q24H [facility] Rx#:[id number] Oral 800 450 150 Output: Drainage 250 220 Back 250 220 Urine 775 1180 30 Other: Voiding Method Indwelling Catheter Indwelling Catheter ABP, PAP, CO, CI - Last Documented Arterial Blood Pressure 100/53 - Exam Physical Examination General: The patient is awake and alert, in no acute distress Skin: Skin is warm and dry with no obvious rashes or lesions. Surgical incision to the thoracolumbar spine, Hemovac is present to the right of the in cision with 100 mL output overnight. Eye: Pupils are equal, round and reactive to light, extra-ocular movements are intact; there is normal conjunctiva bilaterally. Neck: The neck is supple, there is no tenderness and ROM intact. Cardiovascular: There is a regular rate and rhythm. No murmur, rub or gallop is appreciated. Respiratory: Lungs are clear to auscultation, respirations are non-labored, breath sounds are equal. Gastrointestinal: Soft, non-distended, non-tender abdomen. Back: There is mild tenderness to palpation in the paralumbar and buttocks region. There is no obvious deformity . Musculoskeletal: ROM limited secondary to pain and stiffness from surgical procedure. Muscle strength in all major muscle groups of bilateral upper extremities 5/5, bilateral lower extremities 4/5. Neurological: CN 2-12 intact. There are no obvious motor or sensory deficits. Movement and coordination equal and intact. Sensory exam to light touch intact C5-T1 and intact from L2-S1. Reflexes 2/4 in bilateral upper and lower extremities. Negative Hoffmans, babinski, and clonus signs. Psychiatric: Cooperative, appropriate mood & affect, normal judgment. - Labs CBC & Chem 7: 08/30/23 05:16 08/30/23 05:16 Labs: Abnormal Lab Results - Last 24 Hours (Table) 08/29/23 08/29/23 08/30/23 Range/Units 07:45 07:45 05:16 WBC 14.8 H 14.9 H (3.8-10.6) k/uL RBC 3.35 L 3.15 L (4.30-5.90) m/uL Hgb 9.8 L 9.1 L (13.0-17.5) gm/dL Hct 29.8 L 28.3 L (39.0-53.0) % Plt Count 137 L (150-450) k/uL Neutrophils # 11.3 H (1.3-7.7) k/uL Sodium 135 L (137-145) mmol/L Glucose 122 H (74-99) mg/dL Calcium 7.9 L (8.4-10.2) mg/dL 08/30/23 Range/Units 05:16 WBC (3.8-10.6) k/uL RBC (4.30-5.90) m/uL Hgb (13.0-17.5) gm/dL Hct (39.0-53.0) % Plt Count (150-450) k/uL Neutrophils # (1.3-7.7) k/uL Sodium 136 L (137-145) mmol/L Glucose 121 H (74-99) mg/dL Calcium 8.1 L (8.4-10.2) mg/dL Assessment and Plan Assessment: Postop day 2: Revision [id number] decompression and fusion 1. 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 Neurogenic claudication with lower extremity weakness and paresthesias 4. Low back pain 5. Degenerative scoliosis Plan: -Appreciate senior clinical consultant and team management. -Activity: Ambulate QID, OOB all meals, up and about, limit lifting bending twisting to less than 5 lbs. Use walker or cane if needed for stability. -Daily PT/OT, increase ambulation strength and balance. -Brace when up and about, not needed in bed or chair -Pain control: Adequate at this time -Meds: reviewed -GI ppx: senna, Miralax -DC love catheter -DVT PPX: Heparin -Hygiene: Shower today. Maintain dressing clean and dry. Meticulous cleaning after BMs away from the incision site -Drains: Maintain for now. Continue to monitor and record output q shift. -Encourage IS 10x/hr -Dispo: Clinically pending *I reviewed and discussed this case with my attending Dr. Santiago, whom has reviewed this chart and films and is in agreement with assessment and plan of care as outlined above. I have personally seen and examined the patient, performed the documentation and the assessment and plan as written. Number of minutes spent on the visit: 20m.
--- NOTE | 2023-08-30 08:39 | P.PN ---
Subjective Progress Note Date: 08/30/23 Principal diagnosis: DDD This is a 73-year-old male with a known history of COPD who is postop day #2 for spinal correction. He is seen this morning sitting in bedside chair with brace on. Reports pain is well-controlled. However he is experiencing some constipation, nurse reports patient has alert he received a suppository. Enema is also ordered. Objective - Vital Signs Vital signs: Vital Signs Temp 98.2 F 08/30/23 07:56 Pulse 100 08/30/23 07:00 Resp 13 08/30/23 07:00 BP 98/65 08/30/23 07:00 Pulse Ox 96 08/30/23 07:00 FiO2 Intake & Output 08/29/23 08/30/23 08/30/23 18:59 06:59 18:59 Intake Total 820 450 150 Output Total 1025 1400 30 Balance -205 -950 120 Weight 70.3 kg Intake: IV 20 Lactated Ringers 1,000 ml 20 @ 20 mls/hr IV .Q24H [facility] Rx#:[id number] Oral 800 450 150 Output: Drainage 250 220 Back 250 220 Urine 775 1180 30 Other: Voiding Method Indwelling Catheter Indwelling Catheter ABP, PAP, CO, CI - Last Documented Arterial Blood Pressure 100/53 - Constitutional General appearance: Present: cooperative, no acute distress - EENT Eyes: Present: PERRLA - Neck Neck: Present: normal ROM. Absent: lymphadenopathy, rigidity - Respiratory Respiratory: bilateral: CTA - Cardiovascular Rhythm: regular Heart sounds: normal: S1, S2 - Gastrointestinal General gastrointestinal: Present: soft. Absent: tenderness - Integumentary Integumentary: Present: normal, normal turgor - Psychiatric Psychiatric: Present: A&O x's 3, appropriate affect, intact judgment & insight - Labs CBC & Chem 7: 08/30/23 05:16 08/30/23 05:16 Labs: Abnormal Lab Results - Last 24 Hours (Table) 08/30/23 08/30/23 Range/Units 05:16 05:16 WBC 14.9 H (3.8-10.6) k/uL RBC 3.15 L (4.30-5.90) m/uL Hgb 9.1 L (13.0-17.5) gm/dL Hct 28.3 L (39.0-53.0) % Plt Count 137 L (150-450) k/uL Sodium 136 L (137-145) mmol/L Glucose 121 H (74-99) mg/dL Calcium 8.1 L (8.4-10.2) mg/dL Assessment and Plan (1) Degenerative disc disease Current Visit: Yes Status: Acute Code(s): DIC1041 - SNOMED Code(s): 25575076 (2) COPD (chronic obstructive pulmonary disease) Current Visit: Yes Status: Acute Code(s): J44.9 - CHRONIC OBSTRUCTIVE PULM ONARY DISEASE, UNSPECIFIED SNOMED Code(s): 34016560 (3) Hypertension Current Visit: Yes Status: Acute Code(s): I10 - ESSENTIAL (PRIMARY) HYPERTENSION SNOMED Code(s): 09356371 (4) History of TIA (transient ischemic attack) Current Visit: Yes Status: Acute Code(s): Z86.73 - PRSNL HX OF TIA (TIA), AND CEREB INFRC W/O RESID DEFICITS SNOMED Code(s): 387527564 (5) Former smoker Current Visit: Yes Status: Acute Code(s): Z87.891 - PERSONAL HISTORY OF NICOTINE DEPENDENCE SNOMED Code(s): 9307947 Plan: Check CBC and CMP in the morning. Continue to follow appropriate postop care and surgeon's instructions. Patient seen and evaluated by nurse practitioner, physician in agreement with plan
[2023-08-30] MEDS: HYDROmorphone 0.5 MG/0.5 ML SYRINGE IVP PRN ×2 (13:28→16:36)
[2023-08-30 16:15] LABS: HCT 27.2 % (39.0-53.0); HGB 8.8 gm/dL (13.0-17.5); MCH 29.2 pg (25.0-35.0); MCHC 32.5 g/dL (31.0-37.0); Mean Platelet Volume 10.6; Platelet Count 124 k/uL (150-450); RBC 3.02 m/uL (4.30-5.90); RDW 13.2 % (11.5-15.5); WBC 12.5 k/uL (3.8-10.6)
[2023-08-30] MEDS: polyethylene glycoL 3350 17 GM POWD.PACK PO SCH (17:59)
[2023-08-31] MEDS: HYDROcodone/APAP 10-325MG 1 EACH TAB PO PRN ×5 (00:13→18:41)
[2023-08-31 06:05] LABS: HCT 24.9 % (39.0-53.0); HGB 8.2 gm/dL (13.0-17.5); MCH 29.6 pg (25.0-35.0); MCV 89.5 fL (80.0-100.0); Mean Platelet Volume 10.1; Platelet Count 131 k/uL (150-450); RBC 2.78 m/uL (4.30-5.90); RDW 12.9 % (11.5-15.5); WBC 11.1 k/uL (3.8-10.6)
[2023-08-31 06:17] LABS: ALT 14 U/L (4-49); AST 29 U/L (17-59); African American GFR (CKD) >90 (>60 ml/min/1.73 sqM); Albumin 2.7 g/dL (3.5-5.0); Alkaline Phosphatase 70 U/L (38-126); Anion Gap 7 mmol/L; Blood Urea Nitrogen 11 mg/dL (9-20); Calcium 7.8 mg/dL (8.4-10.2); Carbon Dioxide 30 mmol/L (22-30); Chloride 98 mmol/L (98-107); Glucose 118 mg/dL (74-99); Non-African American GFR(CKD) >90 (>60 ml/min/1.73 sqM); Potassium 3.8 mmol/L (3.5-5.1); Sodium 135 mmol/L (137-145); Total Bilirubin 0.3 mg/dL (0.2-1.3); Total Protein 4.9 g/dL (6.3-8.2)
[2023-08-31] MEDS ORDERED: MAGNESIUM CITRATE 296 ML BOTTLE PO ONE (07:52)
--- NOTE | 2023-08-31 07:58 | P.PN ---
Subjective Progress Note Date: 08/31/23 Principal diagnosis: 1. 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 Neurogenic claudication with lower extremity weakness and paresthesias 4. Low back pain 5. Degenerative scoliosis Patient seen and examined this morning. Upon entering the room patient is standing at bathroom sink washing up for breakfast. He reports that his pain is better managed at this time. Surgical incision to the thoracic or lumbar spine, dressing has mild shadowing. Hemovac was reported this morning it became dislodged and removed. Surgical dressing may be changed once brace is removed. Patient does report improvement into the lower extremities since procedure, he has had decrease of pain and numbness/tingling. Mota catheter had been removed yesterday morning, patient expressed difficulty with urination. Patient has been straight cathed 1. Patient does report history of urethral stricture or growth that was removed. Urology consult will be placed. Patient has had a precipitous drop in hemoglobin with some symptoms. One unit of RBCs will be transfused today. Vital signs stable at this time. Patient does report that he plans home with home care at discharge. No acute concerns. Objective - Vital Signs Vital signs: Vital Signs Temp 98.3 F 08/31/23 04:00 Pulse 111 H 08/31/23 06:00 Resp 18 08/31/23 06:00 BP 127/69 08/31/23 06:00 Pulse Ox 93 L 08/31/23 06:00 FiO2 Intake & Output 08/30/23 08/30/23 08/31/23 06:59 18:59 06:59 Intake Total 450 2390 50 Output Total 1400 810 230 Balance -950 1580 -180 Weight 70.3 kg 74.5 kg Intake: IV 200 50 Invasive Line 2 50 Invasive Line 4 40 Invasive Line 5 10 ceFAZolin 2 gm In Sodium 100 Chloride 0.9% 50 ml @ 100 mls/hr IVPB ONCE PRN Rx# :[id number] ceFAZolin 2 gm In Sodium 50 Chloride 0.9% 50 ml @ 100 mls/hr IVPB Q8HR [facility] Rx# :[id number] Oral 450 2190 Output: Drainage 220 230 130 Back 220 230 130 Urine 1180 580 100 Stool 0 0 Other: Voiding Method Indwelling Catheter Urinal Toilet Urinal # Voids 0 1 # Bowel Movements 0 1 ABP, PAP, CO, CI - Last Documented Arterial Blood Pressure 100/53 - Exam Physical Examination General: The patient is awake and alert, in no acute distress Skin: Skin is warm and dry with no obvious rashes or lesions. Surgical incision to the thoracolumbar spine. Eye: Pupils are equal, round and reactive to light, extra-ocular movements are intact; there is normal conjunctiva bilaterally. Neck: The neck is supple, there is no tenderness and ROM intact. Cardiovascular: There is a regular rate and rhythm. No murmur, rub or gallop is appreciated. Respiratory: Lungs are clear to auscultation, respirations are non-labored, breath sounds are equal. Gastrointestinal: Soft, non-distended, non-tender abdomen. Back: There is mild tenderness to palpation in the paralumbar and buttocks region. There is no obvious deformity . Musculoskeletal: ROM limited secondary to pain and stiffness from surgical procedure. Muscle strength in all major muscle groups of bilateral upper extremities 5/5, bilateral lower extremities 4/5. Neurological: CN 2-12 intact. There are no obvious motor or sensory deficits. Movement and coordination equal and intact. Sensory exam to light touch intact C5-T1 and intact from L2-S1. Reflexes 2/4 in bilateral upper and lower extremities. Negative Hoffmans, babinski, and clonus signs. Psychiatric: Cooperative, appropriate mood & affect, normal judgment. - Labs CBC & Chem 7: 08/31/23 05:26 08/31/23 05:26 Labs: Abnormal Lab Results - Last 24 Hours (Table) 08/30/23 08/31/23 08/31/23 Range/Units 15:39 05:26 05:26 WBC 12.5 H 11.1 H (3.8-10.6) k/uL RBC 3.02 L 2.78 L (4.30-5.90) m/uL Hgb 8.8 L 8.2 L (13.0-17.5) gm/dL Hct 27.2 L 24.9 L (39.0-53.0) % Plt Count 124 L 131 L (150-450) k/uL Sodium 135 L (137-145) mmol/L Glucose 118 H (74-99) mg/dL Calcium 7.8 L (8.4-10.2) mg/dL Total Protein 4.9 L (6.3-8.2) g/dL Albumin 2.7 L (3.5-5.0) g/dL Assessment and Plan Assessment: Postop day 3: Revision [id number] decompression and fusion 1. 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 Neurogenic claudication with lower extremity weakness and paresthesias 4. Low back pain 5. Degenerative scoliosis 6. Post-op anemia; expected outcome from surgery Plan: -Appreciate supply chain consultant and team management. -Activity: Ambulate QID, OOB all meals, up and about, limit lifting bending twisting to less than 5 lbs. Use walker or cane if needed for stability. -Daily PT/OT, increase ambulation strength and balance. -Brace when up and about, not needed in bed or chair -Consult to urology regarding the urethral stricture and urinary retention. -Pain control: Adequate at this time -Meds: reviewed -GI ppx: senna, Miralax, enema, dulcolax, mag citrate -DVT PPX: Heparin -Hygiene: Shower today. Maintain dressing clean and dry. Meticulous cleaning after BMs away from the incision site -Encourage IS 10x/hr -Dispo: Anticipating discharge home with home care in the next 48 hours. *I reviewed and discussed this case with my attending Dr. Santiago, whom has reviewed this chart and films and is in agreement with assessment and plan of care as outlined above. I have personally seen and examined the patient, performed the documentation and the assessment and plan as written. Number of minutes spent on the visit: 20m.
[2023-08-31] MEDS: GABAPENTIN 300 MG CAP PO SCH ×3 (08:21→21:36)
--- NOTE | 2023-08-31 08:21 | P.PN ---
Subjective Progress Note Date: 08/31/23 Principal diagnosis: The patient is postop day #3 for spinal repair. The patient had constipation yesterday but now is resolved. There is slight postop anemia and they are transfusing today 1 unit PRBC. He is tachycardic today. Otherwise some mild dysuria stated. Urology will now be consulted with history of urethral stricture house. In the past. No fever or chills. Objective - Vital Signs Vital signs: Vital Signs Temp 98.3 F 08/31/23 04:00 Pulse 105 H 08/31/23 07:00 Resp 16 08/31/23 07:00 BP 120/99 08/31/23 07:00 Pulse Ox 95 08/31/23 07:00 FiO2 Intake & Output 08/30/23 08/31/23 08/31/23 18:59 06:59 18:59 Intake Total 2390 50 Output Total 810 230 0 Balance 1580 -180 0 Weight 74.5 kg Intake: IV 200 50 Invasive Line 2 50 Invasive Line 4 40 Invasive Line 5 10 ceFAZolin 2 gm In Sodium 100 Chloride 0.9% 50 ml @ 100 mls/hr IVPB ONCE PRN Rx# :[id number] ceFAZolin 2 gm In Sodium 50 Chloride 0.9% 50 ml @ 100 mls/hr IVPB Q8HR [facility] Rx# :[id number] Oral 2190 Output: Drainage 230 130 Back 230 130 Urine 580 100 0 Stool 0 0 Other: Voiding Method Urinal Toilet Urinal # Voids 0 1 # Bowel Movements 0 1 ABP, PAP, CO, CI - Last Documented Arterial Blood Pressure 100/53 - Constitutional General appearance: Present: cooperative - EENT Eyes: Absent: abnormal pupil - Neck Neck: Absent: lymphadenopathy - Respiratory Respiratory: bilateral: diminished - Cardiovascular Heart rate: 110 Rhythm: regular Abnormal Heart Sounds: Absent: S3 Gallop - Gastrointestinal General gastrointestinal: Present: soft. Absent: tenderness - Labs CBC & Chem 7: 08/31/23 05:26 08/31/23 05:26 Labs: Abnormal Lab Results - Last 24 Hours (Table) 08/30/23 08/31/23 08/31/23 Range/Units 15:39 05:26 05:26 WBC 12.5 H 11.1 H (3.8-10.6) k/uL RBC 3.02 L 2.78 L (4.30-5.90) m/uL Hgb 8.8 L 8.2 L (13.0-17.5) gm/dL Hct 27.2 L 24.9 L (39.0-53.0) % Plt Count 124 L 131 L (150-450) k/uL Sodium 135 L (137-145) mmol/L Glucose 118 H (74-99) mg/dL Calcium 7.8 L (8.4-10.2) mg/dL Total Protein 4.9 L (6.3-8.2) g/dL Albumin 2.7 L (3.5-5.0) g/dL Crossmatch 08/31/23 Range/Units 06:59 WBC (3.8-10.6) k/uL RBC (4.30-5.90) m/uL Hgb (13.0-17.5) gm/dL Hct (39.0-53.0) % Plt Count (150-450) k/uL Sodium (137-145) mmol/L Glucose (74-99) mg/dL Calcium (8.4-10.2) mg/dL Total Protein (6.3-8.2) g/dL Albumin (3.5-5.0) g/dL Crossmatch See Detail Assessment and Plan (1) Degenerative disc disease Current Visit: Yes Status: Acute Code(s): SFQ5737 - SNOMED Code(s): 68066761 (2) Former smoker Current Visit: Yes Status: Acute Code(s): Z87.891 - PERSONAL HISTORY OF NICOTINE DEPENDENCE SNOMED Code(s): 5431932 (3) Hypertension Current Visit: Yes Status: Acute Code(s): I10 - ESSENTIAL (PRIMARY) HYPERTENSION SNOMED Code(s): 35376838 (4) Persistent asthma Current Visit: No Status: Acute Code(s): J45.909 - UNSPECIFIED ASTHMA, UNCOMPLICATED SNOMED Code(s): 148896874 Plan: Await 1 unit PRBC. Check CBC and CMP in a.m. Increase activity. We'll continue to follow. Appreciate multiple consultants input.
[2023-08-31] MEDS: SENNOSIDES-DOCUSATE SODIUM 1 EACH TAB PO SCH (08:23)
[2023-08-31] MEDS: bisacodyL 10 MG SUPP RECTAL PRN (08:23)
[2023-08-31] MEDS: HEPARIN SODIUM,PORCINE 5,000 UNIT/ML 1 ML VIAL SQ SCH ×2 (08:23→21:36)
[2023-08-31] MEDS: polyethylene glycoL 3350 17 GM POWD.PACK PO SCH (08:23)
[2023-08-31] MEDS: MAGNESIUM HYDROXIDE 2,400 MG/30 ML CUP PO SCH (08:23)
[2023-08-31] MEDS: ACETAMINOPHEN TAB 325 MG TAB PO SCH ×4 (08:24→23:40)
[2023-08-31] MEDS: HYDROmorphone 1 MG/ML 1 ML SYRINGE IVP PRN ×2 (11:36→21:36)
[2023-08-31] MEDS: CYCLOBENZAPRINE 5 MG TAB PO PRN (17:09)
[2023-09-01] MEDS: HYDROmorphone 1 MG/ML 1 ML SYRINGE IVP PRN ×3 (02:40→17:56)
[2023-09-01 05:10] LABS: HCT 28.5 % (39.0-53.0); HGB 9.3 gm/dL (13.0-17.5); MCH 29.1 pg (25.0-35.0); MCHC 32.8 g/dL (31.0-37.0); MCV 88.8 fL (80.0-100.0); Mean Platelet Volume 10.5; Platelet Count 156 k/uL (150-450); RBC 3.21 m/uL (4.30-5.90); RDW 13.3 % (11.5-15.5); WBC 9.8 k/uL (3.8-10.6)
[2023-09-01 05:19] LABS: ALT 17 U/L (4-49); AST 38 U/L (17-59); African American GFR (CKD) >90 (>60 ml/min/1.73 sqM); Alkaline Phosphatase 68 U/L (38-126); Anion Gap 4 mmol/L; Blood Urea Nitrogen 11 mg/dL (9-20); Carbon Dioxide 33 mmol/L (22-30); Chloride 99 mmol/L (98-107); Glucose 114 mg/dL (74-99); Non-African American GFR(CKD) >90 (>60 ml/min/1.73 sqM); Potassium 4.3 mmol/L (3.5-5.1); Sodium 136 mmol/L (137-145); Total Bilirubin 0.7 mg/dL (0.2-1.3); Total Protein 5.3 g/dL (6.3-8.2)
[2023-09-01] MEDS: ACETAMINOPHEN TAB 325 MG TAB PO SCH ×3 (06:44→17:55)
[2023-09-01] MEDS: polyethylene glycoL 3350 17 GM POWD.PACK PO SCH (09:06)
[2023-09-01] MEDS: bisacodyL 10 MG SUPP RECTAL PRN (09:06)
[2023-09-01] MEDS: HYDROcodone/APAP 10-325MG 1 EACH TAB PO PRN (09:06)
[2023-09-01] MEDS: SENNOSIDES-DOCUSATE SODIUM 1 EACH TAB PO SCH (09:06)
[2023-09-01] MEDS: MAGNESIUM HYDROXIDE 2,400 MG/30 ML CUP PO SCH (09:06)
[2023-09-01] MEDS: GABAPENTIN 300 MG CAP PO SCH ×3 (09:07→21:23)
[2023-09-01] MEDS: HEPARIN SODIUM,PORCINE 5,000 UNIT/ML 1 ML VIAL SQ SCH ×2 (09:07→21:23)
--- NOTE | 2023-09-01 12:53 | P.PN ---
Subjective Progress Note Date: 09/01/23 Principal diagnosis: Status post revision T10 to pelvis decompression and fusion Patient was evaluated today at bedside, he is resting in his hospital chair in the ICU, his is present. Transfer orders have been placed for patient be transferred to medical floor with telemetry monitoring. Patient has been urinating better since yesterday into this morning. Patient did receive 1 unit of packed RBCs yesterday, his hemoglobin stabilized. His vitals also see more stable. Patient continues to deal with significant constipation, he has failed multiple bowel is at this time. Patient has been ambulating with the assistance of walker and the use of his brace. He notes most of the discomfort at this time in his abdomen, he is having very minimal back pain at this time. Objective - Vital Signs Vital signs: Vital Signs Temp 98.5 F 09/01/23 08:00 Pulse 101 H 09/01/23 08:00 Resp 20 09/01/23 08:00 BP 130/65 09/01/23 08:00 Pulse Ox 97 09/01/23 08:00 FiO2 Intake & Output 08/31/23 09/01/23 09/01/23 18:59 06:59 18:59 Intake Total 1920 260 820 Output Total 1060 700 Balance 860 -440 820 Weight 74.7 kg Intake: IV 170 20 20 Invasive Line 5 20 10 10 Invasive Line 6 50 10 10 ceFAZolin 2 gm In Sodium 100 Chloride 0.9% 50 ml @ 100 mls/hr IVPB Q8HR [facility] Rx# :[id number] Oral 1440 240 800 Blood Product 310 Rc As-1 Unit 310 [id number] Output: Urine 1060 700 Other: Voiding Method Toilet Toilet Urinal Urinal # Voids 1 # Bowel Movements 0 ABP, PAP, CO, CI - Last Documented Arterial Blood Pressure 100/53 - Exam Gen: AOx3, NAD VSS stable at this time Integument: Postoperative bandages in good position and condition, no active drainage Palpation: Tenderness on palpation noted throughout paraspinal region in the thoracic and lumbar area ROM: Range of motion in all major muscle groups in the bilateral upper and lower extr emities, no focal deficits appreciated Sensory Exam: Senory exam to light touch is intact C5-T1 Senosry exam to light touch is intact L2-S1 Motor: 5/5 strength appreciated in the bilateral upper extremities with shoulder elevation, shoulder abduction, elbow extension, elbow flexion, wrist extension, wrist flexion, dump motorman 4/5 strength appreciated in the bilateral lower extremities with hip flexion, knee extension, knee flexion, plantar flexion, dorsiflexion, EHL, FHL Reflexes: 2/4 in all UE and LE Negative Jose Ramon's bilaterally Negative Babinski bilaterally Negative clonus bilaterally - Labs CBC & Chem 7: 09/01/23 04:58 09/01/23 04:58 Labs: Abnormal Lab Results - Last 24 Hours (Table) 08/31/23 09/01/23 09/01/23 Range/Units 06:59 04:58 04:58 RBC 3.21 L (4.30-5.90) m/uL Hgb 9.3 L (13.0-17.5) gm/dL Hct 28.5 L (39.0-53.0) % Sodium 136 L (137-145) mmol/L Carbon Dioxide 33 H (22-30) mmol/L Creatinine 0.58 L (0.66-1.25) mg/dL Glucose 114 H (74-99) mg/dL Calcium 8.0 L (8.4-10.2) mg/dL Total Protein 5.3 L (6.3-8.2) g/dL Albumin 3.0 L (3.5-5.0) g/dL Crossmatch See Detail Assessment and Plan Assessment: Postoperative day #5 status post T10 to pelvis decompression and fusion Acute blood loss anemia, expected surgical outcome Constipation Other medical comorbidities Plan: Pain control, discussed the patient to try to avoid IV narcotics at this time continue oral medications DVT prophylaxis, continue heparin while in hospital CBC remains stable, continue to monitor Consult for general surgery due to severe constipation, continue all current bowel aids Encourage incentive spirometer Weight-bear as tolerated, utilize TLSO brace and walker when ambulating PT/OT Other medical parasitologist recommendations appreciated We'll continue to follow during inpatient stay Time with Patient: Less than 30
--- NOTE | 2023-09-01 13:36 | P.PN ---
Subjective Progress Note Date: 09/01/23 Status post revision T10 to pelvis decompression and fusion 09/01. Patient seen and examined. Complaining of constipation, states he hasn't had a bowel movement since seen in the hospital, denies passing gas. Labs done this morning showed a bili was 9.8, hemoglobin 9.3, sodium 136, BUN 11, creatinine 0.58 REVIEW OF SYSTEMS: CONSTITUTIONAL: No fever, no malaise,. CARDIOVASCULAR: No chest pain, no palpitations, no syncope. PULMONARY: No shortness of breath, no cough, GASTROINTESTINAL: No diarrhea, no nausea, no vomiting, no abdominal pain. Complaining of constipation NEUROLOGICAL: No headaches, no weakness, PHYSICAL EXAMINATION: GENERAL: The patient is alert and oriented x3, not in any acute distress. Well developed, well nourished. HEENT: Pupils are round and equally reacting to light. EOMI. No scleral icterus. No conjunctival pallor. Normocephalic, atraumatic. No pharyngeal erythema. No thyromegaly. CARDIOVASCULAR: S1 and S2 present. No murmurs, rubs, or gallops. PULMONARY: Chest is clear to auscultation, no wheezing or crackles. ABDOMEN: Distended, bowel sounds are sluggish. No palpable organomegaly. MUSCULOSKELETAL: No joint swelling or deformity. EXTREMITIES: No cyanosis, clubbing, or pedal edema. NEUROLOGICAL: Gross neurological examination did not reveal any focal deficits. SKIN: No rashes. Assessment and plan status post T10 to pelvis decompression and fusion Acute blood loss anemia, expected surgical outcome Constipation Monitor vital signs Monitor CBC Monitor CMP Ordered x-ray abdominal continue bowel regimen Continue pain management per orthopedic spine Gen. surgery consulted for constipation Labs and medication were reviewed.. Continue same treatment. Continue with symptomatic treatment. Resume home medication. Monitor labs and vitals. DVT and GI prophylaxis. Further recommendations as per clinical course of the patient Dictation was produced using Gnodal dictation software. please excuse any grammatical, word or spelling errors. Objective - Vital Signs Vital signs: Vital Signs Temp 98.5 F 09/01/23 08:00 Pulse 101 H 09/01/23 08:00 Resp 20 09/01/23 08:00 BP 130/65 09/01/23 08:00 Pulse Ox 97 09/01/23 08:00 FiO2 Intake & Output 08/31/23 09/01/23 09/01/23 18:59 06:59 18:59 Intake Total 1920 260 820 Output Total 1060 700 Balance 860 -440 820 Weight 74.7 kg Intake: IV 170 20 20 Invasive Line 5 20 10 10 Invasive Line 6 50 10 10 ceFAZolin 2 gm In Sodium 100 Chloride 0.9% 50 ml @ 100 mls/hr IVPB Q8HR [facility] Rx# :[id number] Oral 1440 240 800 Blood Product 310 Rc As-1 Unit 310 [id number] Output: Urine 1060 700 Other: Voiding Method Toilet Toilet Urinal Urinal # Voids 1 # Bowel Movements 0 ABP, PAP, CO, CI - Last Documented Arterial Blood Pressure 100/53 - Labs CBC & Chem 7: 09/01/23 04:58 09/01/23 04:58 Labs: Abnormal Lab Results - Last 24 Hours (Table) 08/31/23 09/01/23 09/01/23 Range/Units 06:59 04:58 04:58 RBC 3.21 L (4.30-5.90) m/uL Hgb 9.3 L (13.0-17.5) gm/dL Hct 28.5 L (39.0-53.0) % Sodium 136 L (137-145) mmol/L Carbon Dioxide 33 H (22-30) mmol/L Creatinine 0.58 L (0.66-1.25) mg/dL Glucose 114 H (74-99) mg/dL Calcium 8.0 L (8.4-10.2) mg/dL Total Protein 5.3 L (6.3-8.2) g/dL Albumin 3.0 L (3.5-5.0) g/dL Crossmatch See Detail
--- NOTE | 2023-09-01 13:55 | P.GSCN ---
History of Present Illness Consult date: 09/01/23 History of present illness: Patient seen and evaluated. He reports long history of intermittent constipation. Family at bedside. He was scheduled to have colonoscopy this year but his back went out. He reports poor colonoscopy preps despite laxatives, Golytely, and fasting. CT lumbar reviewed with findings of redundant sigmoid colon, diverticulosis without diverticulitis and gallstones. Small possible stricture of sigmoid colon inferred from images. May benefit from dedicated CT abd/pelvis. Start lactulose. For abdominal distention, start gas-x scheduled. All questions answered with family. Recommend low residue diet. Check Magnesium levels. Past Medical History Past Medical History: Asthma, COPD, CVA/TIA, GERD/Reflux, Hyperlipidemia, Hypertension, Musculoskeletal Disorder, Osteoarthritis (OA), Pneumonia, Sleep Apnea/CPAP/BIPAP Additional Past Medical History / Comment(s): "Pre-Diabetic". Hx diverticulitis. Degenerative Disc Disease, chronic back pain. Hx TIA's-no residual effects. Chronic cough Hx ulcer. No longer using CPAP device. History of Any Multi-Drug Resistant Organisms: None Reported Past Surgical History: Back Surgery, Hernia Repair, Orthopedic Surgery, Tonsillectomy Additional Past Surgical History / Comment(s): BACK SURGERY W/ RODS & SCREWS, Cervical Fusion, VARICOCELE SURGERY, BILATERAL INGUINAL HERNIA REPAIR, BRONCHOSCOPY, multiple pain procedures in lower back and neck, lump removed from lower jaw(benign). Past Anesthesia/Blood Transfusion Reactions: No Reported Reaction Past Psychological History: No Psychological Hx Reported Smoking Status: Former smoker Past Alcohol Use History: Rare Additional Past Alcohol Use History / Comment(s): SMOKED 1-2 PPD SINCE 1964, quit 1 yr ago. Past Drug Use History: Marijuana Additional Drug Use History / Comment(s): Hx CBD oil and Marijuana occasionally, none now. - Past Family History Mother Family Medical History: No Reported History Medications and Allergies Home Medications Medication Instructions Recorded Confirmed Type Multivitamins, Thera [Multivitamin] 1 tab PO DAILY 04/06/16 08/22/23 History Omeprazole [PriLOSEC] 40 mg PO HS 10/19/20 08/22/23 History Aspirin EC [Ecotrin Low Dose] 81 mg PO HS 11/29/20 08/22/23 History Cholecalciferol [Vitamin D3 (25 25 mcg PO DAILY 11/29/20 08/22/23 History Mcg = 1000 Iu)] Budesonide-Formot 160-4.5 Mcg 2 puff INHALATION BID 06/05/22 08/22/23 History [Symbicort 160-4.5 Mcg Inhaler] Vitamin C (Unknown Dose) 1 tab PO DAILY 12/20/22 08/22/23 History buPROPion XL [Wellbutrin XL] 150 mg PO QAM 12/20/22 08/22/23 History Albuterol Nebulized [Ventolin 2.5 mg INHALATION Q6H PRN 12/22/22 08/22/23 History Nebulized] Bisoprolol-Hctz 5-6.25 mg [Ziac 1 tab PO QAM 08/22/23 08/22/23 History 5-6.25 MG] Calcium Carbonate [Calcium] 600 mg PO DAILY 08/22/23 08/22/23 History Gabapentin 300 - 900 mg PO TID PRN 08/22/23 08/22/23 History Ibuprofen 800 mg PO TID PRN 08/22/23 08/22/23 History Ipratropium Virgil 0.06%Nasal 2 spray EA NOSTRIL QID PRN 08/22/23 08/22/23 History [Atrovent Nasal 0.06%] Montelukast [Singulair] 10 mg PO HS 08/22/23 08/22/23 History Allergies Allergy/AdvReac Type Severity Reaction Status Date / Time cefuroxime Allergy Nausea & Verified 08/22/23 11:57 Vomiting Surgical - Exam Vital Signs Temp Pulse Resp BP Pulse Ox 97.8 F 65 18 149/76 97 08/28/23 07:03 08/28/23 07:03 08/28/23 07:03 08/28/23 07:03 08/28/23 07:03 Results - Labs 09/01/23 04:58 09/01/23 04:58 Abnormal Lab Results - Last 24 Hours (Table) 09/01/23 09/01/23 Range/Units 04:58 04:58 RBC 3.21 L (4.30-5.90) m/uL Hgb 9.3 L (13.0-17.5) gm/dL Hct 28.5 L (39.0-53.0) % Sodium 136 L (137-145) mmol/L Carbon Dioxide 33 H (22-30) mmol/L Creatinine 0.58 L (0.66-1.25) mg/dL Glucose 114 H (74-99) mg/dL Calcium 8.0 L (8.4-10.2) mg/dL Total Protein 5.3 L (6.3-8.2) g/dL Albumin 3.0 L (3.5-5.0) g/dL Diabetes panel 09/01/23 Range/Units 04:58 Sodium 136 L (137-145) mmol/L Potassium 4.3 (3.5-5.1) mmol/L Chloride 99 (98-107) mmol/L Carbon Dioxide 33 H (22-30) mmol/L BUN 11 (9-20) mg/dL Creatinine 0.58 L (0.66-1.25) mg/dL Glucose 114 H (74-99) mg/dL Calcium 8.0 L (8.4-10.2) mg/dL AST 38 (17-59) U/L ALT 17 (4-49) U/L Alkaline Phosphatase 68 (38-126) U/L Total Protein 5.3 L (6.3-8.2) g/dL Albumin 3.0 L (3.5-5.0) g/dL Calcium panel 09/01/23 Range/Units 04:58 Calcium 8.0 L (8.4-10.2) mg/dL Albumin 3.0 L (3.5-5.0) g/dL Pituitary panel 09/01/23 Range/Units 04:58 Sodium 136 L (137-145) mmol/L Potassium 4.3 (3.5-5.1) mmol/L Chloride 99 (98-107) mmol/L Carbon Dioxide 33 H (22-30) mmol/L BUN 11 (9-20) mg/dL Creatinine 0.58 L (0.66-1.25) mg/dL Glucose 114 H (74-99) mg/dL Calcium 8.0 L (8.4-10.2) mg/dL Adrenal panel 09/01/23 Range/Units 04:58 Sodium 136 L (137-145) mmol/L Potassium 4.3 (3.5-5.1) mmol/L Chloride 99 (98-107) mmol/L Carbon Dioxide 33 H (22-30) mmol/L BUN 11 (9-20) mg/dL Creatinine 0.58 L (0.66-1.25) mg/dL Glucose 114 H (74-99) mg/dL Calcium 8.0 L (8.4-10.2) mg/dL Total Bilirubin 0.7 (0.2-1.3) mg/dL AST 38 (17-59) U/L ALT 17 (4-49) U/L Alkaline Phosphatase 68 (38-126) U/L Total Protein 5.3 L (6.3-8.2) g/dL Albumin 3.0 L (3.5-5.0) g/dL
--- NOTE | 2023-09-01 14:43 | XR ---
EXAMINATION TYPE: XR abdomen 2V DATE OF EXAM: 09/01/2023 COMPARISON: 11/13/2022 HISTORY: Constipation and abdominal distention TECHNIQUE: Abdomen is examined in the upright and supine views. FINDINGS: Surgical again augustin present. Multiple fixation rods and pedicle screws are present. Disc spacers are present L3-4 L4-5. Nonspecific bowel gas is present. Air is within the colon. There are some scattered air-fluid levels in the ascending colon region. No mass effect is evident. Psoas margins are normal. Free air within t he abdomen is not evident. IMPRESSION: 1. Nonspecific abdomen.
[2023-09-01] MEDS: LACTULOSE 20 GM/30 ML CUP PO SCH ×2 (15:04→21:22)
[2023-09-01] MEDS: SIMETHICONE 40 MG/0.6 ML DROPS 2,000 MG/30 ML BOTTLE PO SCH ×3 (15:04→21:24)
[2023-09-02] MEDS: ACETAMINOPHEN TAB 325 MG TAB PO SCH ×4 (00:52→17:15)
[2023-09-02] MEDS: HYDROmorphone 1 MG/ML 1 ML SYRINGE IVP PRN (03:07)
[2023-09-02] MEDS: HYDROcodone/APAP 10-325MG 1 EACH TAB PO PRN ×3 (07:07→19:50)
[2023-09-02] MEDS: MAGNESIUM HYDROXIDE 2,400 MG/30 ML CUP PO SCH (08:25)
[2023-09-02] MEDS: GABAPENTIN 300 MG CAP PO SCH ×3 (08:25→20:27)
[2023-09-02] MEDS: HEPARIN SODIUM,PORCINE 5,000 UNIT/ML 1 ML VIAL SQ SCH ×2 (08:26→20:27)
[2023-09-02] MEDS: SENNOSIDES-DOCUSATE SODIUM 1 EACH TAB PO SCH (08:26)
[2023-09-02] MEDS: SIMETHICONE 40 MG/0.6 ML DROPS 2,000 MG/30 ML BOTTLE PO SCH ×5 (08:26→20:28)
[2023-09-02] MEDS: polyethylene glycoL 3350 17 GM POWD.PACK PO SCH (08:26)
[2023-09-02] MEDS: LACTULOSE 20 GM/30 ML CUP PO SCH ×3 (08:28→20:27)
--- NOTE | 2023-09-02 10:11 | P.GSCN ---
History of Present Illness Consult date: 09/02/23 Reason for Consult: Urinary retention Requesting physician: Annalise Lew History of present illness: The patient is a 73-year-old white male who underwent lumbar fusion on 08/28/2023. He experienced postoperative urinary retention, requiring straight catheterization. However, he is now voiding, and bladder scan has shown adequate bladder emptying (PVR<100 cc). The patient states that he underwent a TURP by Dr. Norwood approximately 3-4 years ago. Previously, he took Hytrin for BPH. He states that his voiding improved considerably following the TURP, but he has experienced recurrent obstructive voiding symptoms for the past year. Review of Systems - Genitourinary Reports nocturia Past Medical History Past Medical History: Asthma, COPD, CVA/TIA, GERD/Reflux, Hyperlipidemia, Hypertension, Musculoskeletal Disorder, Osteoarthritis (OA), Pneumonia, Sleep Apnea/CPAP/BIPAP Additional Past Medical History / Comment(s): "Pre-Diabetic". Hx diverticulitis. Degenerative Disc Disease, chronic back pain. Hx TIA's-no residual effects. Chronic cough Hx ulcer. No longer using CPAP device. History of Any Multi-Drug Resistant Organisms: None Reported Past Surgical History: Back Surgery, Hernia Repair, Orthopedic Surgery, Tonsillectomy Additional Past Surgical History / Comment(s): BACK SURGERY W/ RODS & SCREWS, Cervical Fusion, VARICOCELE SURGERY, BILATERAL INGUINAL HERNIA REPAIR, BRONCHOSCOPY, multiple pain procedures in lower back and neck, lump removed from lower jaw(benign). Past Anesthesia/Blood Transfusion Reactions: No Reported Reaction Past Psychological History: No Psychological Hx Reported Smoking Status: Former smoker Past Alcohol Use History: Rare Additional Past Alcohol Use History / Comment(s): SMOKED 1-2 PPD SINCE 1964, quit 1 yr ago. Past Drug Use History: Marijuana Additional Drug Use History / Comment(s): Hx CBD oil and Marijuana occasionally, none now. - Past Family History Mother Family Medical History: No Reported History Medications and Allergies Home Medications Medication Instructions Recorded Confirmed Type Multivitamins, Thera [Multivitamin] 1 tab PO DAILY 04/06/16 08/22/23 History Omeprazole [PriLOSEC] 40 mg PO HS 10/19/20 08/22/23 History Aspirin EC [Ecotrin Low Dose] 81 mg PO HS 11/29/20 08/22/23 History Cholecalciferol [Vitamin D3 (25 25 mcg PO DAILY 11/29/20 08/22/23 History Mcg = 1000 Iu)] Budesonide-Formot 160-4.5 Mcg 2 puff INHALATION BID 06/05/22 08/22/23 History [Symbicort 160-4.5 Mcg Inhaler] Vitamin C (Unknown Dose) 1 tab PO DAILY 12/20/22 08/22/23 History buPROPion XL [Wellbutrin XL] 150 mg PO QAM 12/20/22 08/22/23 History Albuterol Nebulized [Ventolin 2.5 mg INHALATION Q6H PRN 12/22/22 08/22/23 History Nebulized] Bisoprolol-Hctz 5-6.25 mg [Ziac 1 tab PO QAM 08/22/23 08/22/23 History 5-6.25 MG] Calcium Carbonate [Calcium] 600 mg PO DAILY 08/22/23 08/22/23 History Gabapentin 300 - 900 mg PO TID PRN 08/22/23 08/22/23 History Ibuprofen 800 mg PO TID PRN 08/22/23 08/22/23 History Ipratropium [place] 0.06%Nasal 2 spray EA NOSTRIL QID PRN 08/22/23 08/22/23 History [Atrovent Nasal 0.06%] Montelukast [Singulair] 10 mg PO HS 08/22/23 08/22/23 History Allergies Allergy/AdvReac Type Severity Reaction Status Date / Time cefuroxime Allergy Nausea & Verified 08/22/23 11:57 Vomiting Surgical - Exam Vital Signs Temp Pulse Resp BP Pulse Ox 97.8 F 65 18 149/76 97 08/28/23 07:03 08/28/23 07:03 08/28/23 07:03 08/28/23 07:03 08/28/23 07:03 - General well developed, well nourished, no distress - Respiratory normal respiratory effort - Abdomen Abdomen: soft, non tender, no guarding, no rigid, no rebound - Psychiatric oriented to time, oriented to person, oriented to place, speech is normal, mem ory intact Results - Labs 09/01/23 04:58 09/01/23 04:58 Abnormal Lab Results - Last 24 Hours (Table) 08/31/23 09/01/23 09/01/23 Range/Units 06:59 04:58 04:58 RBC 3.21 L (4.30-5.90) m/uL Hgb 9.3 L (13.0-17.5) gm/dL Hct 28.5 L (39.0-53.0) % Sodium 136 L (137-145) mmol/L Carbon Dioxide 33 H (22-30) mmol/L Creatinine 0.58 L (0.66-1.25) mg/dL Glucose 114 H (74-99) mg/dL Calcium 8.0 L (8.4-10.2) mg/dL Total Protein 5.3 L (6.3-8.2) g/dL Albumin 3.0 L (3.5-5.0) g/dL Crossmatch See Detail Diabetes panel 09/01/23 Range/Units 04:58 Sodium 136 L (137-145) mmol/L Potassium 4.3 (3.5-5.1) mmol/L Chloride 99 (98-107) mmol/L Carbon Dioxide 33 H (22-30) mmol/L BUN 11 (9-20) mg/dL Creatinine 0.58 L (0.66-1.25) mg/dL Glucose 114 H (74-99) mg/dL Calcium 8.0 L (8.4-10.2) mg/dL AST 38 (17-59) U/L ALT 17 (4-49) U/L Alkaline Phosphatase 68 (38-126) U/L Total Protein 5.3 L (6.3-8.2) g/dL Albumin 3.0 L (3.5-5.0) g/dL Calcium panel 09/01/23 Range/Units 04:58 Calcium 8.0 L (8.4-10.2) mg/dL Albumin 3.0 L (3.5-5.0) g/dL Pituitary panel 09/01/23 Range/Units 04:58 Sodium 136 L (137-145) mmol/L Potassium 4.3 (3.5-5.1) mmol/L Chloride 99 (98-107) mmol/L Carbon Dioxide 33 H (22-30) mmol/L BUN 11 (9-20) mg/dL Creatinine 0.58 L (0.66-1.25) mg/dL Glucose 114 H (74-99) mg/dL Calcium 8.0 L (8.4-10.2) mg/dL Adrenal panel 09/01/23 Range/Units 04:58 Sodium 136 L (137-145) mmol/L Potassium 4.3 (3.5-5.1) mmol/L Chloride 99 (98-107) mmol/L Carbon Dioxide 33 H (22-30) mmol/L BUN 11 (9-20) mg/dL Creatinine 0.58 L (0.66-1.25) mg/dL Glucose 114 H (74-99) mg/dL Calcium 8.0 L (8.4-10.2) mg/dL Total Bilirubin 0.7 (0.2-1.3) mg/dL AST 38 (17-59) U/L ALT 17 (4-49) U/L Alkaline Phosphatase 68 (38-126) U/L Total Protein 5.3 L (6.3-8.2) g/dL Albumin 3.0 L (3.5-5.0) g/dL Assessment and Plan (1) BPH with obstruction/lower urinary tract symptoms Current Visit: Yes Status: Acute Code(s): N40.1 - BENIGN PROSTATIC HYPERP LASIA WITH LOWER URINARY TRACT SYMP; N13.8 - OTHER OBSTRUCTIVE AND REFLUX UROPATHY SNOMED Code(s): 503341336 Plan: The patient has experienced recurrent voiding symptoms. This may be due to a hypotonic bladder, prostatic regrowth, or a wide caliber vesical neck contracture. It is apparent that he does not have a tight vesical neck contract ure given that he was successfully catheterized. Given that he is emptying his bladder completely, no intervention is warranted at this time. He was advised to follow up with our office as an outpatient if he experiences persistent voiding symptoms. Please notify us if we can be of any further assistance.
[2023-09-02] MEDS: CYCLOBENZAPRINE 5 MG TAB PO PRN ×2 (11:12→19:43)
[2023-09-02] MEDS: HYDROmorphone 0.5 MG/0.5 ML SYRINGE IVP PRN ×2 (11:12→23:23)
--- NOTE | 2023-09-02 13:07 | P.PN ---
Subjective Progress Note Date: 09/02/23 Xrays reviewed. Has decreased but present abdominal distention. He had large bowel movement. at bedside. Recommend increase gas-x, stop straws, carbonated beverages and lactose products. Overall clinic improvement. Objective - Vital Signs Vital signs: Vital Signs Temp 98.7 F 09/02/23 08:00 Pulse 97 09/02/23 08:00 Resp 18 09/02/23 08:00 BP 135/63 09/02/23 08:00 Pulse Ox 98 09/02/23 08:00 FiO2 Intake & Output 09/01/23 09/02/23 09/02/23 18:59 06:59 18:59 Intake Total 820 70 Output Total 325 760 550 Balance 495 -690 -550 Weight 72.2 kg Intake: IV 20 70 Invasive Line 5 10 10 Invasive Line 6 10 10 ceFAZolin 2 gm In Sodium 50 Chloride 0.9% 50 ml @ 100 mls/hr IVPB Q8HR [facility] Rx# :[id number] Oral 800 Output: Urine 325 760 550 Other: Voiding Method Toilet Toilet Toilet Urinal Urinal Urinal # Voids 1 # Bowel Movements 1 ABP, PAP, CO, CI - Last Documented Arterial Blood Pressure 100/53 - Labs CBC & Chem 7: 09/01/23 04:58 09/01/23 04:58
--- NOTE | 2023-09-02 13:13 | P.PN ---
Subjective Progress Note Date: 09/02/23 Principal diagnosis: Status post revision T10 to pelvis decompression and fusion Patient was evaluated today at bedside, he is resting in his hospital bed. General surgery did evaluate the patient yesterday and placed multiple recommendations. Patient did have a large bowel movement yesterday, he notes improvement in the overall distention and discomfort. Back pain is well- controlled currently. Vitals and labs remained stable at this time. Objective - Vital Signs Vital signs: Vital Signs Temp 98.7 F 09/02/23 08:00 Pulse 97 09/02/23 08:00 Resp 18 09/02/23 08:00 BP 135/63 09/02/23 08:00 Pulse Ox 98 09/02/23 08:00 FiO2 Intake & Output 09/01/23 09/02/23 09/02/23 18:59 06:59 18:59 Intake Total 820 70 Output Total 325 760 550 Balance 495 690 -550 Weight 72.2 kg Intake: IV 20 70 Invasive Line 5 10 10 Invasive Line 6 10 10 ceFAZolin 2 gm In Sodium 50 Chloride 0.9% 50 ml @ 100 mls/hr IVPB Q8HR [facility] Rx# :[id number] Oral 800 Output: Urine 325 760 550 Other: Voiding Method Toilet Toilet Toilet Urinal Urinal Urinal # Voids 1 # Bowel Movements 1 ABP, PAP, CO, CI - Last Documented Arterial Blood Pressure 100/53 - Exam Gen: AOx3, NAD VSS stable at this time Integument: Postoperative bandages in good position and condition, no active drainage Palpation: Tenderness on palpation noted throughout paraspinal region in the thoracic and lumbar area ROM: Range of motion in all major muscle groups in the bilateral upper and lower extremities, no focal deficits appreciated Sensory Exam: Senory exam to light touch is intact C5-T1 Senosry exam to light touch is intact L2-S1 Motor: 5/5 strength appreciated in the bilateral upper extremities with shoulder elevation, shoulder abduction, elbow extension, elbow flexion, wrist extension, wrist flexion, second operator 4/5 strength appreciated in the bilateral lower extremities with hip flexion, knee extension, knee flexion, plantar flexion, dorsiflexion, EHL, FHL Reflexes: 2/4 in all UE and LE Negative Jose Ramon's bilaterally Negative Babinski bilaterally Negative clonus bilaterally - Labs CBC & Chem 7: 09/01/23 04:58 09/01/23 04:58 Assessment and Plan Assessment: Postoperative day #6 status post T10 to pelvis decompression and fusion Acute blood loss anemia, expected surgical outcome Constipation Other medical comorbidities Plan: Pain control, long discussion today with the patient regarding IV narcotics and the need to decrease and stop them. Continue with oral medications. DVT prophylaxis, continue heparin while in hospital CBC remains stable, continue to monitor Encourage incentive spirometer Weight-bear as tolerated, utilize TLSO brace and walker when ambulating PT/OT Other medical records clerk recommendations appreciated Hopeful discharge to home with home health care on 09/03/2023 Time with Patient: Less than 30
--- NOTE | 2023-09-02 14:53 | P.PN ---
Subjective Progress Note Date: 09/02/23 Status post revision T10 to pelvis decompression and fusion 09/01. Patient seen and examined. Complaining of constipation, states he hasn't had a bowel movement since seen in the hospital, denies passing gas. Labs done this morning showed a bili was 9.8, hemoglobin 9.3, sodium 136, BUN 11, creatinine 0.58 09/02. Patient seen and examined. X abdominal done showed no evidence of any obstruction, no evidence of any perforation states he feels better. Patient had 2-3 bowel movements REVIEW OF SYSTEMS: CONSTITUTIONAL: No fever, no malaise,. CARDIOVASCULAR: No chest pain, no palpitations, no syncope. PULMONARY: No shortness of breath, no cough, GASTROINTESTINAL: No diarrhea, no nausea, no vomiting, no abdominal pain. NEUROLOGICAL: No headaches, no weakness, PHYSICAL EXAMINATION: GENERAL: The patient is alert and oriented x3, not in any acute distress. Well developed, well nourished. HEENT: Pupils are round and equally reacting to light. EOMI. No scleral icterus. No conjunctival pallor. Normocephalic, atraumatic. No pharyngeal erythema. No thyromegaly. CARDIOVASCULAR: S1 and S2 present. No murmurs, rubs, or gallops. PULMONARY: Chest is clear to auscultation, no wheezing or crackles. ABDOMEN: Distended, bowel sounds are sluggish. No palpable organomegaly. MUSCULOSKELETAL: No joint swelling or deformity. EXTREMITIES: No cyanosis, clubbing, or pedal edema. NEUROLOGICAL: Gross neurological examination did not reveal any focal deficits. SKIN: No rashes. Assessment and plan status post T10 to pelvis decompression and fusion Acute blood loss anemia, expected surgical outcome Constipation Monitor vital signs Monitor CBC Monitor CMP Results of x-ray abdominal continue bowel regimen Continue pain management per orthopedic spine Gen. surgery consulted for constipation, recommended lactulose and Gas-X Labs and medication were reviewed.. Continue same treatment. Continue with symptomatic treatment. Resume home medication. Monitor labs and vitals. DVT and GI prophylaxis. Further recommendations as per clinical course of the patient Dictation was produced using [employer] dictation software. please excuse any grammatical, word or spelling errors. Objective - Vital Signs Vital signs: Vital Signs Temp 98.7 F 09/02/23 08:00 Pulse 97 09/02/23 08:00 Resp 18 10/29/23 08:00 BP 135/63 09/02/23 08:00 Pulse Ox 98 09/02/23 08:00 FiO2 Intake & Output 09/01/23 09/02/23 09/02/23 18:59 06:59 18:59 Intake Total 820 70 Output Total 325 760 550 Balance 495 690 -550 Weight 72.2 kg Intake: IV 20 70 Invasive Line 5 10 10 Invasive Line 6 10 10 ceFAZolin 2 gm In Sodium 50 Chloride 0.9% 50 ml @ 100 mls/hr IVPB Q8HR [facility] Rx# :[id number] Oral 800 Output: Urine 325 760 550 Other: Voiding Method Toilet Toilet Toilet Urinal Urinal Urinal # Voids 1 # Bowel Movements 1 ABP, PAP, CO, CI - Last Documented Arterial Blood Pressure 100/53 - Labs CBC & Chem 7: 09/01/23 04:58 09/01/23 04:58
[2023-09-03] MEDS: HYDROcodone/APAP 10-325MG 1 EACH TAB PO PRN ×3 (00:57→09:18)
[2023-09-03] MEDS: ACETAMINOPHEN TAB 325 MG TAB PO SCH ×5 (00:57→23:21)
[2023-09-03] MEDS: CYCLOBENZAPRINE 5 MG TAB PO PRN ×2 (03:52→22:53)
[2023-09-03] MEDS: HYDROmorphone 0.5 MG/0.5 ML SYRINGE IVP PRN ×2 (06:49→23:21)
--- NOTE | 2023-09-03 08:33 | P.PN ---
Subjective Progress Note Date: 09/03/23 Principal diagnosis: DDD This is a 73-year-old male with a known history of COPD who is postop day #2 for spinal correction. He is seen this morning sitting in bedside chair with brace on. Reports pain is well-controlled. However he is experiencing some constipation, nurse reports patient has alert he received a suppository. Enema is also ordered. 09/03/2023 Patient seen and evaluated laying in bed this morning. He is still having ongoing issues with constipation. He has had a bowel movement on Sunday and one yesterday. He is still reporting his stomach is very uncomfortable. Objective - Vital Signs Vital signs: Vital Signs Temp 98.2 F 09/03/23 06:54 Pulse 97 09/03/23 06:54 Resp 17 09/03/23 06:54 BP 118/64 09/03/23 06:54 Pulse Ox 97 09/03/23 06:54 FiO2 Intake & Output 09/02/23 09/03/23 09/03/23 18:59 06:59 18:59 Output Total 900 Balance -900 Weight 76.4 kg Output: Urine 900 Other: Voiding Method Toilet Toilet Urinal Urinal # Voids 0 ABP, PAP, CO, CI - Last Documented Arterial Blood Pressure 100/53 - Constitutional General appearance: Present: cooperative, no acute distress - EENT Eyes: Present: PERRLA - Neck Neck: Present: normal ROM. Absent: lymphadenopathy, rigidity - Respiratory Respiratory: bilateral: CTA - Cardiovascular Rhythm: regular Heart sounds: normal: S1, S2 - Gastrointestinal General gastrointestinal: Present: decreased bowel sounds, distended - Integumentary Integumentary: Present: normal, normal turgor - Psychiatric Psychiatric: Present: A&O x's 3, appropriate affect, intact judgment & insight - Labs CBC & Chem 7: 09/01/23 04:58 09/01/23 04:58 Assessment and Plan (1) Degenerative disc disease Current Visit: Yes Status: Acute Code(s): VPM4569 - SNOMED Code(s): 39932190 (2) COPD (chronic obstructive pulmonary disease) Current Visit: Yes Status: Acute Code(s): J44.9 - CHRONIC OBSTRUCTIVE PULMONARY DISEASE, UNSPECIFIED SNOMED Code(s): 15436847 (3) Hypertension Current Visit: Yes Status: Acute Code(s): I10 - ESSENTIAL (PRIMARY) HYPERTENSION SNOMED Code(s): 37350668 (4) History of TIA (transient ischemic attack) Current Visit: Yes Status: Acute Code(s): Z86.73 - PRSNL HX OF TIA (TIA), AND CEREB INFRC W/O RESID DEFICITS SNOMED Code(s): 347366752 (5) Former smoker Current Visit: Yes Status: Acute Code(s): Z87.891 - PERSONAL HISTORY OF NICOTINE DEPENDENCE SNOMED Code(s): 2008957 (6) Constipation Current Visit: Yes Status: Acute Code(s): K59.00 - CONSTIPATION, UNSPECIFIED SNOMED Code(s): 28278681 Plan: Continue to follow surgeon's postop care. Encourage movement, patient has multiple medications ordered for constipation. Patient seen and evaluated by nurse practitioner, physician in agreement with plan
[2023-09-03] MEDS: GABAPENTIN 300 MG CAP PO SCH ×3 (09:07→21:42)
[2023-09-03] MEDS: HEPARIN SODIUM,PORCINE 5,000 UNIT/ML 1 ML VIAL SQ SCH ×2 (09:07→21:42)
[2023-09-03] MEDS: SENNOSIDES-DOCUSATE SODIUM 1 EACH TAB PO SCH (09:07)
[2023-09-03] MEDS: MAGNESIUM HYDROXIDE 2,400 MG/30 ML CUP PO SCH (09:08)
[2023-09-03] MEDS: LACTULOSE 20 GM/30 ML CUP PO SCH ×3 (09:08→21:42)
[2023-09-03] MEDS: SIMETHICONE 40 MG/0.6 ML DROPS 2,000 MG/30 ML BOTTLE PO SCH ×4 (09:09→21:42)
--- NOTE | 2023-09-03 12:55 | P.PN ---
Subjective Progress Note Date: 09/03/23 Principal diagnosis: Status post revision T10 to pelvis decompression and fusion Patient was evaluated today at bedside, he is resting in his hospital bed, he was transferred to the medical/surgical floor. Patient is noticing more pain in his abdomen and lower back. He states the medication is currently taking is not working. I did discontinue 1 mg of IV Dilaudid yesterday. We again discussed continuous use of pain medication will cause worsening constipation. Patient feels is having worsening pain also is up and ambulating, he has been utilizing the brace. Objective - Vital Signs Vital signs: Vital Signs Temp 98.2 F 09/03/23 06:54 Pulse 97 09/03/23 06:54 Resp 17 09/03/23 06:54 BP 118/64 09/03/23 06:54 Pulse Ox 97 09/03/23 06:54 FiO2 Intake & Output 09/02/23 09/03/23 09/03/23 18:59 06:59 18:59 Output Total 900 Balance -900 Weight 76.4 kg Output: Urine 900 Other: Voiding Method Toilet Toilet Toilet Urinal Urinal Urinal # Voids 0 ABP, PAP, CO, CI - Last Documented Arterial Blood Pressure 100/53 - Exam Gen: AOx3, NAD VSS stable at this time Integument: Postoperative bandages in good position and condition, no active drainage Palpation: Tenderness on palpation noted throughout paraspinal region in the thoracic and lumbar area ROM: Range of motion in all major muscle groups in the bilateral upper and lower extremities, no focal deficits appreciated Sensory Exam: Senory exam to light touch is intact C5-T1 Senosry exam to light touch is intact L2-S1 Motor: 5/5 strength appreciated in the bilateral upper extremities with shoulder elevation, shoulder abduction, elbow extension, elbow flexion, wrist extension, wrist flexion, welcome center agent 4/5 strength appreciated in the bilateral lower extremities with hip flexion, knee extension, knee flexion, plantar flexion, dorsiflexion, EHL, FHL Reflexes: 2/4 in all UE and LE Negative Jose Ramon's bilaterally Negative Babinski bilaterally Negative clonus bilaterally - Labs CBC & Chem 7: 09/01/23 04:58 09/01/23 04:58 Assessment and Plan Assessment: Postoperative day #7 status post T10 to pelvis decompression and fusion Acute blood loss anemia, expected surgical outcome Constipation Other medical comorbidities Plan: Pain control, plan to adjust oral medications. Discontinue [place] 10 mg at this time, will utilize Percocet 5 mg/325 mg, 1 tab every 4 hours to start. Continue both scheduled gabapentin 300 mg 3 times a day and when necessary Flexeril 5 mg 3 times a day as needed. Advised patient once again he needs try and avoid IV pain medication DVT prophylaxis, continue heparin while in hospital CBC remains stable, continue to monitor Encourage incentive spirometer Weight-bear as tolerated, utilize TLSO brace and walker when ambulating PT/OT Other medical superintendent recommendations appreciated Discharge planning: Patient continues to have significant discomfort in both the abdomen and back, inadequate pain control currently. We'll try to readjust medications and continue to monitor. Time with Patient: Less than 30
--- NOTE | 2023-09-03 13:40 | P.PN ---
Subjective Progress Note Date: 09/03/23 CHIEF COMPLAINT: Constipation HISTORY OF PRESENT ILLNESS: Patient is status post T10 to pelvis decompression and fusion by orthopedic service. Surgical service following regards to his constipation and ileus. Patient continues to feel bloated. He is complaining both of abdominal pain and back pain. His last bowel movement was Sunday and it was liquidy. He has been passing a small amount of gas this AM. On afternoon rounds with Dr. Unger, patient's pain is less and he is passing more flatus. And he is sitting up at bedside chair. Afebrile. WBC is down from 11.1-9.8 Hgb 9.3 PHYSICAL EXAM: VITAL SIGNS: Reviewed GENERAL: Well-developed in no acute distress. HEENT: No sclera icterus. Extraocular movements grossly intact. Moist buccal mucosa. Head is atraumatic, normocephalic. Hears conversational speech. No nasal drainage. NECK: Supple without lymphadenopathy. CHEST: Non-labored respirations and equal bilateral excursions. CARDIOVASCULAR: Palpable 2+ radial pulses. ABDOMEN: Soft. Mildly distended. Tender with palpation left lower quadrant. MUSCULOSKELETAL: No clubbing or cyanosis. NEUROLOGIC: No focal or lateralizing signs. Cranial nerves II through XII grossly intact. PSYCH: Appropriate affect. Alert and oriented to person, place and time. SKIN: Well perfused. Good skin turgor. ASSESSMENT: 1. Abdominal pain 2. Constipation 3. Ileus 4. status post T10 to pelvis decompression and fusion by orthopedic service PLAN: -Continue lactulose and Mylicon gas drops -Encourage patient to ambulate -Continue low fiber diet. No straws. No new beverages and lactose-free foods Physician Informatica Architect note has been reviewed by physician. Signing provider agrees with the documented findings, assessment, and plan of care. Objective - Vital Signs Vital signs: Vital Signs Temp 98.2 F 09/03/23 06:54 Pulse 97 09/03/23 06:54 Resp 17 09/03/23 06:54 BP 118/64 09/03/23 06:54 Pulse Ox 97 09/03/23 06:54 FiO2 Intake & Output 09/02/23 09/03/23 09/03/23 18:59 06:59 18:59 Output Total 900 Balance -900 Weight 76.4 kg Output: Urine 900 Other: Voiding Method Toilet Toilet Toilet Urinal Urinal Urinal # Voids 0 ABP, PAP, CO, CI - Last Documented Arterial Blood Pressure 100/53 - Labs CBC & Chem 7: 09/01/23 04:58 09/01/23 04:58
[2023-09-03] MEDS: oxyCODONE-APAP 5-325MG 1 EACH TAB PO PRN ×3 (14:05→22:53)
[2023-09-04] MEDS: oxyCODONE-APAP 5-325MG 1 EACH TAB PO PRN ×2 (03:43→13:23)
[2023-09-04] MEDS: ACETAMINOPHEN TAB 325 MG TAB PO SCH ×2 (06:27→13:20)
[2023-09-04] MEDS: CYCLOBENZAPRINE 5 MG TAB PO PRN (06:27)
--- NOTE | 2023-09-04 08:16 | P.PN ---
Subjective Progress Note Date: 09/04/23 Principal diagnosis: DDD This is a 73-year-old male with a known history of COPD who is postop day #2 for spinal correction. He is seen this morning sitting in bedside chair with brace on. Reports pain is well-controlled. However he is experiencing some constipation, nurse reports patient has alert he received a suppository. Enema is also ordered. 09/03/2023 Patient seen and evaluated laying in bed this morning. He is still having ongoing issues with constipation. He has had a bowel movement on Sunday and one yesterday. He is still reporting his stomach is very uncomfortable. 09/04/2023 Patient is seen and evaluated sitting on the side of the bed this morning. P atient reports he was up walking in the [place] yesterday afternoon. He did have a bowel movement yesterday and has already had one today. Patient reports stomach is feeling better. Pain is somewhat better controlled. Objective - Vital Signs Vital signs: Vital Signs Temp 98.4 F 09/04/23 01:17 Pulse 103 H 09/04/23 07:15 Resp 19 09/04/23 07:15 BP 138/74 09/04/23 01:17 Pulse Ox 97 09/04/23 01:17 FiO2 Intake & Output 09/03/23 09/04/23 09/04/23 18:59 06:59 18:59 Weight 70.3 kg Other: Voiding Method Toilet Toilet Toilet Urinal Urinal Urinal # Voids 2 3 # Bowel Movements 1 ABP, PAP, CO, CI - Last Documented Arterial Blood Pressure 100/53 - Constitutional General appearance: Present: cooperative, no acute distress - EENT Eyes: Present: PERRLA - Neck Neck: Present: normal ROM. Absent: lymphadenopathy, rigidity - Respiratory Respiratory: bilateral: CTA - Cardiovascular Rhythm: regular Heart sounds: normal: S1, S2 - Gastrointestinal General gastrointestinal: Present: soft. Absent: tenderness - Integumentary Integumentary: Present: normal, normal turgor - Psychiatric Psychiatric: Present: A&O x's 3, appropriate affect, intact judgment & insight - Labs CBC & Chem 7: 09/01/23 04:58 09/01/23 04:58 Assessment and Plan (1) Degenerative disc disease Current Visit: Yes Status: Acute Code(s): IIE4016 - SNOMED Code(s): 29814871 (2) COPD (chronic obstructive pulmonary disease) Current Visit: Yes Status: Acute Code(s): J44.9 - CHRONIC OBSTRUCTIVE PULMONARY DISEASE, UNSPECIFIED SNOMED Code(s): 03135229 (3) Hypertension Current Visit: Yes Status: Acute Code(s): I10 - ESSENTIAL (PRIMARY) HYPERTENSION SNOMED Code(s): 08120681 (4) History of TIA (transient ischemic attack) Current Visit: Yes Status: Acute Code(s): Z86.73 - PRSNL HX OF TIA (TIA), AND CEREB INFRC W/O RESID DEFICITS SNOMED Code(s): 894173179 (5) Former smoker Current Visit: Yes Status: Acute Code(s): Z87.891 - PERSONAL HISTORY OF NICOTINE DEPENDENCE SNOMED Code(s): 7134154 (6) Constipation Current Visit: Yes Status: Acute Code(s): K59.00 - CONSTIPATION, UNSPECIFIED SNOMED Code(s): 32417945 Plan: Constipation has improved. Patient may be discharged from medical standpoint. Patient seen and evaluated by nurse practitioner, physician in agreement with plan
[2023-09-04] MEDS: SIMETHICONE 40 MG/0.6 ML DROPS 2,000 MG/30 ML BOTTLE PO SCH ×2 (09:50→13:35)
[2023-09-04] MEDS: GABAPENTIN 300 MG CAP PO SCH (09:52)
[2023-09-04] MEDS: SENNOSIDES-DOCUSATE SODIUM 1 EACH TAB PO SCH (09:52)
[2023-09-04] MEDS: LACTULOSE 20 GM/30 ML CUP PO SCH (09:53)
[2023-09-04] MEDS: HEPARIN SODIUM,PORCINE 5,000 UNIT/ML 1 ML VIAL SQ SCH (09:54)
[2023-09-04] MEDS: MAGNESIUM HYDROXIDE 2,400 MG/30 ML CUP PO SCH (09:54)
--- NOTE | 2023-09-04 14:07 | P.PN ---
Subjective Progress Note Date: 09/04/23 CHIEF COMPLAINT: Constipation HISTORY OF PRESENT ILLNESS: Patient is status post T10 to pelvis decompression and fusion by orthopedic service. Surgical service following regards to his constipation and ileus. Patient reports he is feeling better today. He's had more bowel movements and a lot of flatus. He reports his abdominal pain is better. He is tolerating a low fiber diet. Afebrile. PHYSICAL EXAM: VITAL SIGNS: Reviewed GENERAL: Well-developed in no acute distress. HEENT: No sclera icterus. Extraocular movements grossly intact. Moist buccal mucosa. Head is atraumatic, normocephalic. Hears conversational speech. No nasal drainage. NECK: Supple without lymphadenopathy. CHEST: Non-labored respirations and equal bilateral excursions. CARDIOVASCULAR: Palpable 2+ radial pulses. ABDOMEN: Soft. Nondistended. Nontender. MUSCULOSKELETAL: No clubbing or cyanosis. NEUROLOGIC: No focal or lateralizing signs. Cranial nerves II through XII grossly intact. PSYCH: Appropriate affect. Alert and oriented to person, place and time. SKIN: Well perfused. Good skin turgor. ASSESSMENT: 1. Abdominal pain 2. Constipation 3. Ileus 4. status post T10 to pelvis decompression and fusion by orthopedic service PLAN: -Continue lactulose and Mylicon gas drops -Encourage patient to ambulate -Continue low fiber diet. No straws. No new beverages and lactose-free foods Physician Pomologist note has been reviewed by physician. Signing provider agrees with the documented findings, assessment, and plan of care. Objective - Vital Signs Vital signs: Vital Signs Temp 98.2 F 09/04/23 07:23 Pulse 75 09/04/23 07:23 Resp 18 09/04/23 07:23 BP 144/85 09/04/23 07:23 Pulse Ox 97 09/04/23 09:05 FiO2 21 09/04/23 09:05 Intake & Output 09/03/23 09/04/23 09/04/23 18:59 06:59 18:59 Weight 70.3 kg Other: Voiding Method Toilet Toilet Toilet Urinal Urinal Urinal # Voids 2 3 # Bowel Movements 1 ABP, PAP, CO, CI - Last Documented Arterial Blood Pressure 100/53 - Labs CBC & Chem 7: 09/01/23 04:58 09/01/23 04:58
--- NOTE | 2023-09-04 14:25 | P.PN ---
Subjective Progress Note Date: 09/04/23 Principal diagnosis: Status post revision T10 to pelvis decompression and fusion Patient was evaluated today at bedside, he is resting in his hospital bed, is present at bedside. Patient seems he is feeling a little bit better, he continues to have bouts of abdominal discomfort. He states the back pain is controlled with current medications. He denies headaches, lightheadedness, chest pain or shortness of breath. Objective - Vital Signs Vital signs: Vital Signs Temp 98.2 F 09/04/23 07:23 Pulse 75 09/04/23 07:23 Resp 18 09/04/23 07:23 BP 144/85 09/04/23 07:23 Pulse Ox 97 09/04/23 09:05 FiO2 21 09/04/23 09:05 Intake & Output 09/03/23 09/04/23 09/04/23 18:59 06:59 18:59 Weight 70.3 kg 70.3 kg Other: Voiding Method Toilet Toilet Toilet Urinal Urinal Urinal # Voids 2 3 # Bowel Movements 1 1 ABP, PAP, CO, CI - Last Documented Arterial Blood Pressure 100/53 - Exam Gen: AOx3, NAD VSS stable at this time Integument: Postoperative bandage was changed today at bedside, augustin are all in good position and condition Palpation: Tenderness on palpation noted throughout paraspinal region in the thoracic and lumbar area ROM: Range of motion in all major muscle groups in the bilateral upper and lower extremities, no focal deficits appreciated Sensory Exam: Senory exam to light touch is intact C5-T1 Senosry exam to light touch is intact L2-S1 Motor: 5/5 strength appreciated in the bilateral upper extremities with shoulder elevation, shoulder abduction, elbow extension, elbow flexion, wrist extension, wrist flexion, 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 house 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 4/5 strength appreciated in the bilateral lower extremities with hip flexion, knee extension, knee flexion, plantar flexion, dorsiflexion, EHL, FHL Reflexes: 2/4 in all UE and LE Negative Jose Ramon's bilaterally Negative Babinski bilaterally Negative clonus bilaterally - Labs CBC & Chem 7: 09/01/23 04:58 09/01/23 04:58 Assessment and Plan Assessment: Status post T10 to pelvis decompression and fusion Acute blood loss anemia, expected surgical outcome Constipation Other medical comorbidities Plan: Pain control, plan for discharge on Percocet 5 mg/325 mg, gabapentin 300 mg 3 times a day and Flexeril as needed Wound care instructions were discussed with patient Encourage incentive spirometer Weight-bear as tolerated, utilize TLSO brace and walker when ambulating PT/OT Other medical delivery driver recommendations appreciated Discharge planning: Plan for discharge home today Time with Patient: Less than 30
--- NOTE | 2023-09-04 14:32 | P.DS ---
Providers Date of admission: 08/28/23 06:20 Expected date of discharge: 09/04/23 Attending physician: Meir Santiago DO Consults: 08/28/23 14:22 Consult Physician Routine Consulting Provider: Carroll Monterroso Consult Reason/Comments: medical management Do you want consulting provider notified?: Yes 08/31/23 07:51 Consult Physician Routine Consulting Provider: Michael Omalley Consult Reason/Comments: h/o urethral stricture, urinary retention Do you want consulting provider notified?: Yes 09/01/23 12:38 Consult Physician Routine Consulting Provider: Lorenza Unger Consult Reason/Comments: Severe constipation, multiple failed bowl aids Do you want consulting provider notified?: Yes Primary care physician: Carroll Monterroso Hospital Course: Date of admission: 08/28/2023 Date of discharge: 09/04/2023 Admission diagnosis: Status post revision [id number] decompression and fusion Discharge diagnosis: Same Attending physician: Dr. Santiago Surgical procedures: Revision [id number] decompression. Brief history: Patient is a 73-year-old male with a history of progressive low back pain, lower extremity paresthesias and weakness status post L4-S1 decompression and fusion. At this point patient has failed conservative treatment measures and has opted to proceed with a elective revision [id number] decompression and fusion. Hospital course: Details of patient's surgery can be found in operative report. Patient tolerated the procedure well and was subsequently transported to orthopedic floor. Patient's orthopeidc and medical care was provided daily. Patient had daily laboratory tests performed for evaluation of overall blood counts. Patient had daily physical therapy to include strengthening range of motion as well as education with walker ambulation. Patient was treated with heparin for their postoperative DVT prophylaxis during their inpatient stay. Patient was noted to have a relatively uneventful postoperative course. Patient reported satisfactory pain control with oral pain medications by postoperative day 5. Patient showed satisfactory progress with physical therapy. Patient moved steadily through the program and had no difficulty meeting the goals by postoperative day 7. Given patient's otherwise satisfactory course and having met physical therapy goals, plan is to discharge patient home on postoperative day 7. Discharge condition/disposition: Patient will be discharged home in stable condition. Discharge medications: Instructions are given on resumption of patient's normal daily medications per primary care recommendation, in addition patient will be prescribed Percocet 5 mg/325 mg, Flexeril 5 mg, gabapentin 300 mg, Duricef 500 mg, senna S, Mirilax 17g. Spine Discharge and Recovery Instructions Dressing: Leave your dressing in place for a total of 5 days post operatively. Then you may remove your dressing and leave open to air. Keep the area clean and if not able to keep area clean, then cover with sterile gauze and tape. Showering: You may shower 3 days after your procedure allowing soap and water to run over incision. Do not scrub. Do not soak. Blot dry. Follow up: Please confirm a follow up appointment with your surgeon 3 weeks post operatively. Please make an appointment to follow up with your PCP in 1-2 weeks after surgery for evaluation 3 phase, 3-week plan POST OP WEEKS 1-3 1. Lifting/carrying/pushing/pulling limited to less than 5 pounds. 2. Do not sit for longer than 15 minutes at one time. Get up and walk around. Prolonged sitting is NOT advised. If you lay down, see if you can tolerate laying down on you front (belly side) 3. Walk for periods of 15 minutes = 1 mile but no longer; do it multiple times times each day. 4. Ice your low back after activity. POST OP WEEKS 3-6 1. Lifting limited to less than 20 pounds. 2. Do not sit for longer than 30 minutes at a time. Frequently change positions. Use a sit-to stand workstation or take frequent breaks from sitting if you have returned to work. 3. Walk for 30 minutes each day. If possible, do these three or more times a day POST OP WEEKS 6+ At your 6-week appointment we will give you a physical therapy referral to focus on a core stabilization and strengthening program. You should also work on leg & buttock strengthening, hamstring & quadriceps stretching, and continue a low impact aerobic activity program such as swimming, walking, or riding a stationary bicycle. During the initial 6 weeks after your surgery, you are at the highest risk of re-injuring your spine. You should generally avoid BLTs (bending, lifting and twisting combination motions) and follow the above guidelines to reduce the reese nce of reinjury. You can anticipate post op appointments in our office at approximately 3 weeks and 6 weeks after your surgery. INCISION CARE: If your incision is not draining you do NOT need to cover it with a dressing. Keep your incision clean, dry and intact. In most cases, we apply skin glue, augustin or sutures to the incision at the time of surgery. This will be like a crust or have the appearance of a scab and will fall off in time on its own. The stitches or augustin need to be removed at 3 weeks post op appointment. You may begin to shower 3 days after surgery (this allows the glue to guo well). However, please avoid scrubbing the incision site or peeling off any of the skin glue. This will ensure optimal healing of your incision. Also, during this time avoid soaking the incision area in water - this includes swimming pools, hot tubs or baths. No ointments, lotions or oils on the incision until your surgeon allows. Leave augustin, sutures or glue in place. Neurological dysfunction that comes on suddenly can also be a sign of a stroke. Below some common symptoms of a stroke are listed: B - balance difficulty such as sudden onset walking or leaning to one side - NEW E - eye problem such as sudden double vision or trouble seeing on one side - NEW F - Facial weakness or numbness on one side - NEW A - Arm or leg weakness or numbness on one side - NEW S - Slurred speech or difficulty with word finding - NEW T - Time is BRAIN! Call 911 as soon as you recognize these symptoms Diet: Consume a regular diet rich in vegetables and lean protein such as chicken or fish. You should consume in a ratio of approximately 20% fats|40% carbohydrates|40%protein. Vegetables, sweet potatoes, brown rice or quinoa are examples of good carbohydrates. Chips, white bread, cookies and sweets/sugar are examples of bad carbohydrates. Limit your bad carbs, go wild with good carbs. "Life's Simple 7" Guidelines as per [place] [employer] These will help you reclaim your life after surgery and leveler helper in your recovery, keeping in mind your restrictions. (1) Get Active. Physical activity can help people lose weight, control high blood pressure and cholesterol, feel emotionally better, and sleep better. (2) Control Cholesterol. Avoid a diet high in saturated fat, trans fat, & cholesterol. Limit whole milk & cream, ice cream, butter, egg yolks, processed meats (like sausage and hot dogs), and fatty meats. Choose healthy foods that are low in saturated fat, trans fat and cholesterol which include: Fruits and vegetables, fiber rich grain products (like whole grain pasta and brown rice), lean meat such as chicken, fish, nuts, seeds, and legumes. (3) Eat Better. Eat small portions. Shop at the grocery with a list and do not stray from it. Tips for a healthy diet include: Limit sodium intake to less than 1500mg daily, avoid prepackaged, processed, and fast foods, choose a diet rich in fruits, vegetables, and whole grain, high fiber foods, and limit saturated & cholesterol in your diet. (4) Manage Blood Pressure. If you have high blood pressure, you should have a cuff at home so that you can check your blood pressure regularly. Be sure you have a good cuff. An arm one is generally better than a wrist one. Bring the cuff to a doctor's appointment to validate that the measurements that your cuff are taking are accurate. Take your blood pressure twice daily when you are sitting down and relaxing. Record the numbers in a log and bring this log with you to your doctors' appointments. (5) Lose Weight if your BMI is above 25. A healthy BMI is between 19-25. To calculate Your BMI, you may use a Standard BMI Calculator on the NIH BMI website: <www.nhlbi.nih.gov/guidelines/obesity/BMI/bmicalc.htm>. Weigh oneself daily. If you are overweight, set a goal to lose weight. A pound a week loss if needed is a good target. (6) Reduce Blood Sugar. Limit foods and liquids with "added sugars." (Added sugars include sucrose, fructose, glucose, maltose, dextrose, high fructose corn syrup, corn syrup, concentrated fruit juice and honey). (7) Stop Smoking. If you smoke, quitting smoking is one of the best things that you can do for your health. Smoking increases your risk of heart attack, stroke, and peripheral vascular disease, which is a build-up of plaque in your arteries. Please discard all the cigarettes and lighters in your house. Have a plan for what you will do when you have the urge to smoke. Direct and second- hand smoke shortens your life as well as the lives of your family, friends and others around you. For your health and the health of those around you, please consider quitting! Proper Bending Body Mechanics: Maintain a wide stance with one foot slightly in front of the other. Keep your back straight. Bend utilizing the strength in your hips and knees. Do not bend at the waist. Maintain the lifted object at your waist-level close to your body. Avoid lifting weight that causes immediately pain or pain anywhere in the body afterwards. Smoking/Nicotine If there was ever one thing that you could do to increase your overall health, decrease your risk of cardiovascular problems by about 39% the second you make the choice, it is to STOP SMOKING. Your body's most instant gratification is the second you stop smoking. We have all heard the studies, read the articles but it is true, smoking is extremely bad for your overall health, and moreover it is detrimental to your bone health. Nicotine, IN ANY FORM, kills bone cells, prevents your body from healing fractures, and significantly prolongs healing after surgery. In spine surgery specifically, it increases your risk of not healing your bones to create a fusion and increases your risk of having a revision surgery due to this up to 60%. I know it is hard. I know it feels impossible. But there are ways. Take control of your life. We are here to help you through it. And when you are ready, ask us and we can direct you to help if you desire. Use the START Plan to Quit Smoking (please visit the Helpguide.org website listed below for more information): S = Set a quit date. Choose a date within the next 2 weeks, so you have enough time to prepare without losing your motivation to quit. If you mainly smoke at work, quit on the weekend, so you have a few days to adjust to the change. T = Tell family, friends, and co-workers that you plan to quit. Let your friends and family in on your plan to quit smoking and tell them you need their support and encouragement to stop. Look for a quit jada who wants to stop smoking as well. You can help each other get through the rough times. A = Anticipate and plan for the challenges you'll face while quitting. Most people who begin smoking again do so within the first 3 months. You can help yourself make it through by preparing ahead for common challenges, such as nicotine withdrawal and cigarette cravings. R = Remove cigarettes and other tobacco products from your home, car, and work. Throw away all your cigarettes (no emergency pack!), lighters, ashtrays, and matches. Wash your clothes and freshen up anything that smells like smoke. Shampoo your car, clean your drapes and carpet, and steam your furniture. T = Talk to your doctor about getting help to quit. Your doctor can prescribe medication to help with withdrawal and suggest other alternatives. If you can't see a doctor, you can get many products over the counter at your local pharmacy or grocery store, including the nicotine patch, nicotine lozenges, and nicotine gum. Resources for Quitting Smoking: <https://www.[place].gov/documents/[facility]/Quit_Tobacco_Resources_for_patients_313 480_7.pdf> Supplementation: Take recommended dosages of Vitamin D and Calcium to help fortify your bones and help them to heal. See your health maintenance packet for dosages and recommended levels. DVT/VTE prophylaxis: You will be given compression stockings from the hospital. Wear these daily for the first two weeks after surgery. You may take them off at night. You may be prescribed a medication to help thin your blood. Take this as directed. If you are not prescribed this medication, early and frequent ambulation has been shown to be the best prophylaxis to deep vein thrombosis and sequelae related to this event. Procedures: Revision [id number] decompression and fusion Patient Condition at Discharge: Good Plan - Discharge Summary Discharge Rx Participant: Yes New Discharge Prescriptions: New Gabapentin 300 mg PO TID 10 Days #30 cap oxyCODONE HCL/ACETAMINOPHEN [Percocet 5-325 mg] 1 tab PO Q6HR PRN 7 Days #28 tab PRN Reason: Pain cefaDROXiL [Duricef] 500 mg PO Q12HR 5 Days #10 cap Cyclobenzaprine [Flexeril] 5 mg PO BID PRN #30 tablet PRN Reason: Spasms polyethylene glycoL 3350 [Miralax] 17 gm PO DAILY PRN #21 packet PRN Reason: Constipation Sennosides/Docusate Sodium [Senna-S 8.6-50 mg Tablet] 2 each PO DAILY PRN #30 tablet PRN Reason: Constipation Discontinued Ibuprofen 800 mg PO TID PRN PRN Reason: Pain No Action Multivitamins, Thera [Multivitamin] 1 tab PO DAILY Omeprazole [PriLOSEC] 40 mg PO HS Cholecalciferol [Vitamin D3 (25 Mcg = 1000 Iu)] 25 mcg PO DAILY Aspirin EC [Ecotrin Low Dose] 81 mg PO HS Vitamin C (Unknown Dose) 1 tab PO DAILY buPROPion XL [Wellbutrin XL] 150 mg PO QAM Gabapentin 300 - 900 mg PO TID PRN PRN Reason: Pain Bisoprolol-Hctz 5-6.25 mg [Ziac 5-6.25 MG] 1 tab PO QAM Calcium Carbonate [Calcium] 600 mg PO DAILY Budesonide-Formot 160-4.5 Mcg [Symbicort 160-4.5 Mcg Inhaler] 2 puff INHALATION BID Albuterol Nebulized [Ventolin Nebulized] 2.5 mg INHALATION Q6H PRN PRN Reason: Shortness Of Breath Ipratropium [place] 0.06%Nasal [Atrovent Nasal 0.06%] 2 spray EA NOSTRIL QID PRN PRN Reason: Difficulty breathing Montelukast [Singulair] 10 mg PO HS Discharge Medication List Multivitamins, Thera [Multivitamin] 1 tab PO DAILY 04/06/16 [History] Omeprazole [PriLOSEC] 40 mg PO HS 10/19/20 [History] Aspirin EC [Ecotrin Low Dose] 81 mg PO HS 11/29/20 [History] Cholecalciferol [Vitamin D3 (25 Mcg = 1000 Iu)] 25 mcg PO DAILY 11/29/20 [History] Budesonide-Formot 160-4.5 Mcg [Symbicort 160-4.5 Mcg Inhaler] 2 puff INHALATION BID 06/05/22 [History] Vitamin C (Unknown Dose) 1 tab PO DAILY 12/20/22 [History] buPROPion XL [Wellbutrin XL] 150 mg PO QAM 12/20/22 [History] Albuterol Nebulized [Ventolin Nebulized] 2.5 mg INHALATION Q6H PRN 12/22/22 [History] Bisoprolol-Hctz 5-6.25 mg [Ziac 5-6.25 MG] 1 tab PO QAM 08/22/23 [History] Calcium Carbonate [Calcium] 600 mg PO DAILY 08/22/23 [History] Gabapentin 300 - 900 mg PO TID PRN 08/22/23 [History] Ipratropium [place] 0.06%Nasal [Atrovent Nasal 0.06%] 2 spray EA NOSTRIL QID PRN 08/22/23 [History] Montelukast [Singulair] 10 mg PO HS 08/22/23 [History] Cyclobenzaprine [Flexeril] 5 mg PO BID PRN #30 tablet 09/04/23 [Rx] Gabapentin 300 mg PO TID 10 Days #30 cap 09/04/23 [Rx] Sennosides/Docusate Sodium [Senna-S 8.6-50 mg Tablet] 2 each PO DAILY PRN #30 tablet 09/04/23 [Rx] cefaDROXiL [Duricef] 500 mg PO Q12HR 5 Days #10 cap 09/04/23 [Rx] oxyCODONE HCL/ACETAMINOPHEN [Percocet 5-325 mg] 1 tab PO Q6HR PRN 7 Days #28 tab 09/04/23 [Rx] polyethylene glycoL 3350 [Miralax] 17 gm PO DAILY PRN #21 packet 09/04/23 [Rx] Follow up Appointment(s)/Referral(s): [facility], [NON-STAFF] - As Needed Meir Santiago DO [Doctor of Osteopathic Medicine] - 10 Days Activity/Diet/Wound Care/Special Instructions: Spine Discharge and Recovery Instructions Dressing: Leave your dressing in place for a total of 5 days post operatively. Then you may remove your dressing and leave open to air. Keep the area clean and if not able to keep area clean, then cover with sterile gauze and tape. Showering: You may shower 3 days after your procedure allowing soap and water to run over incision. Do not scrub. Do not soak. Blot dry. Follow up: Please confirm a follow up appointment with your surgeon 3 weeks post operatively. Please make an appointment to follow up with your PCP in 1-2 weeks after surgery for evaluation 3 phase, 3-week plan POST OP WEEKS 1-3 1. Lifting/carrying/pushing/pulling limited to less than 5 pounds. 2. Do not sit for longer than 15 minutes at one time. Get up and walk around. Prolonged sitting is NOT advised. If you lay down, see if you can tolerate laying down on you front (belly side) 3. Walk for periods of 15 minutes = 1 mile but no longer; do it multiple times times each day. 4. Ice your low back after activity. POST OP WEEKS 3-6 1. Lifting limited to less than 20 pounds. 2. Do not sit for longer than 30 minutes at a time. Frequently change positions. Use a sit-to stand workstation or take frequent breaks from sitting if you have returned to work. 3. Walk for 30 minutes each day. If possible, do these three or more times a day POST OP WEEKS 6+ At your 6-week appointment we will give you a physical therapy referral to focus on a core stabilization and strengthening program. You should also work on leg & buttock strengthening, hamstring & quadriceps stretching, and continue a low impact aerobic activity program such as swimming, walking, or riding a stationary bicycle. During the initial 6 weeks after your surgery, you are at the highest risk of re-injuring your spine. You should generally avoid BLTs (bending, lifting and twisting combination motions) and follow the above guidelines to reduce the chance of reinjury. You can anticipate post op appointments in our office at approximately 3 weeks and 6 weeks after your surgery. INCISION CARE: If your incision is not draining you do NOT need to cover it with a dressing. Keep your incision clean, dry and intact. In most cases, we apply skin glue, augustin or sutures to the incision at the time of surgery. This will be like a crust or have the appearance of a scab and will fall off in time on its own. The stitches or augustin need to be removed at 3 weeks post op appointment. You may begin to shower 3 days after surgery (this allows the glue to guo well). However, please avoid scrubbing the incision site or peeling off any of the skin glue. This will ensure optimal healing of your incision. Also, during this time avoid soaking the incision area in water - this includes swimming pools, hot tubs or baths. No ointments, lotions or oils on the incision until your surgeon allows. Leave augustin, sutures or glue in place. Neurological dysfunction that comes on suddenly can also be a sign of a stroke. Below some common symptoms of a stroke are listed: B - balance difficulty such as sudden onset walking or leaning to one side - NEW E - eye problem such as sudden double vision or trouble seeing on one side - NEW F - Facial weakness or numbness on one side - NEW A - Arm or leg weakness or numbness on one side - NEW S - Slurred speech or difficulty with word finding - NEW T - Time is BRAIN! Call 911 as soon as you recognize these symptoms Diet: Consume a regular diet rich in vegetables and lean protein such as chicken or fish. You should consume in a ratio of approximately 20% fats|40% carbohydrate s|40%protein. Vegetables, sweet potatoes, brown rice or quinoa are examples of good carbohydrates. Chips, white bread, cookies and sweets/sugar are examples of bad carbohydrates. Limit your bad carbs, go wild with good carbs. "Life's Simple 7" Guidelines as per [place] [employer] These will help you reclaim your life after surgery and leveler helper in your recovery, keeping in mind your restrictions. (1) Get Active. Physical activity can help people lose weight, control high blood pressure and cholesterol, feel emotionally better, and sleep better. (2) Control Cholesterol. Avoid a diet high in saturated fat, trans fat, & cholesterol. Limit whole milk & cream, ice cream, butter, egg yolks, processed meats (like sausage and hot dogs), and fatty meats. Choose healthy foods that are low in saturated fat, trans fat and cholesterol which include: Fruits and vegetables, fiber rich grain products (like whole grain pasta and brown rice), lean meat such as chicken, fish, nuts, seeds, and legumes. (3) Eat Better. Eat small portions. Shop at the grocery with a list and do not stray from it. Tips for a healthy diet include: Limit sodium intake to less than 1500mg daily, avoid prepackaged, processed, and fast foods, choose a diet rich in fruits, vegetables, and whole grain, high fiber foods, and limit saturated & cholesterol in your diet. (4) Manage Blood Pressure. If you have high blood pressure, you should have a cuff at home so that you can check your blood pressure regularly. Be sure you have a good cuff. An arm one is generally better than a wrist one. Bring the cuff to a doctor's appointment to validate that the measurements that your cuff are taking are accurate. Take your blood pressure twice daily when you are sitting down and relaxing. Record the numbers in a log and bring this log with you to your doctors' appointments. (5) Lose Weight if your BMI is above 25. A healthy BMI is between 19-25. To calculate Your BMI, you may use a Standard BMI Calculator on the NIH BMI website: <www.nhlbi.nih.gov/guidelines/obesity/BMI/bmicalc.htm>. Weigh oneself daily. If you are overweight, set a goal to lose weight. A pound a week loss if needed is a good target. (6) Reduce Blood Sugar. Limit foods and liquids with "added sugars." (Added sugars include sucrose, fructose, glucose, maltose, dextrose, high fructose corn syrup, corn syrup, concentrated fruit juice and honey). (7) Stop Smoking. If you smoke, quitting smoking is one of the best things that you can do for your health. Smoking increases your risk of heart attack, stroke, and peripheral vascular disease, which is a build-up of plaque in your arteries. Please discard all the cigarettes and lighters in your house. Have a plan for what you will do when you have the urge to smoke. Direct and second- hand smoke shortens your life as well as the lives of your family, friends and others around you. For your health and the health of those around you, please consider quitting! Proper Bending Body Mechanics: Maintain a wide stance with one foot slightly in front of the other. Keep your back straight. Bend utilizing the strength in your hips and knees. Do not bend at the waist. Maintain the lifted object at your waist-level close to your body. Avoid lifting weight that causes immediately pain or pain anywhere in the body afterwards. Smoking/Nicotine If there was ever one thing that you could do to increase your overall health, decrease your risk of cardiovascular problems by about 39% the second you make the choice, it is to STOP SMOKING. Your body's most instant gratification is the second you stop smoking. We have all heard the studies, read the articles but it is true, smoking is extremely bad for your overall health, and moreover it is detrimental to your bone health. Nicotine, IN ANY FORM, kills bone cells, prevents your body from healing fractures, and significantly prolongs healing after surgery. In spine surgery specifically, it increases your risk of not healing your bones to create a fusion and increases your risk of having a revision surgery due to this up to 60%. I know it is hard. I know it feels impossible. But there are ways. Take control of your life. We are here to help you through it. And when you are ready, ask us and we can direct you to help if you desire. Use the START Plan to Quit Smoking (please visit the [employer] website listed below for more information): S = Set a quit date. Choose a date within the next 2 weeks, so you have enough time to prepare without losing your motivation to quit. If you mainly smoke at work, quit on the weekend, so you have a few days to adjust to the change. T = Tell family, friends, and co-workers that you plan to quit. Let your friends and family in on your plan to quit smoking and tell them you need their support and encouragement to stop. Look for a quit jada who wants to stop smoking as well. You can help each other get through the rough times. A = Anticipate and plan for the challenges you'll face while quitting. Most people who begin smoking again do so within the first 3 months. You can help yourself make it through by preparing ahead for common challenges, such as nicotine withdrawal and cigarette cravings. R = Remove cigarettes and other tobacco products from your home, car, and work. Throw away all your cigarettes (no emergency pack!), lighters, ashtrays, and matches. Wash your clothes and freshen up anything that smells like smoke. Shampoo your car, clean your drapes and carpet, and steam your furniture. T = Talk to your doctor about getting help to quit. Your doctor can prescribe medication to help with withdrawal and suggest other alternatives. If you can't see a doctor, you can get many products over the counter at your local pharmacy or grocery store, including the nicotine patch, nicotine lozenges, and nicotine gum. Resources for Quitting Smoking: <https://www.[place].gov/documents/[facility]/Quit_Tobacco_Resources_for_patients_313 480_7.pdf> Supplementation: Take recommended dosages of Vitamin D and Calcium to help fortify your bones and help them to heal. See your health maintenance packet for dosages and recommended levels. DVT/VTE prophylaxis: You will be given compression stockings from the hospital. Wear these daily for the first two weeks after surgery. You may take them off at night. You may be prescribed a medication to help thin your blood. Take this as directed. If you are not prescribed this medication, early and frequent ambulation has been shown to be the best prophylaxis to deep vein thrombosis and sequelae related to this event. Discharge Disposition: HOME WITH HOME HEALTH SERVICES
[2023-09-04 16:02] VITALS: BP 160/74; PULSE 104; RESP 19; TEMP 98.1
== END 2023-09-04 15:14 | disposition home health service (06) | DRG 454 ==
LOC: 2ORMAIN 06:20 → EDSTATUS 08:00 → 2SICU 14:30 → 4SSUR 09-03 03:56
PROVIDERS: ADMIT Orthopaedic Surgery; ATTEND Orthopaedic Surgery
PROC: 0RGA071 Fusion of Thoracolumbar Vertebral Joint with Autologous Tissue Substitute, Posterior Approach, Posterior Column, Open Approach (ICD-10-PCS; 2023-08-28)
PROC: 0SG1071 Fusion of 2 or more Lumbar Vertebral Joints with Autologous Tissue Substitute, Posterior Approach, Posterior Column, Open Approach (ICD-10-PCS; 2023-08-28)
PROC: 0RG70AJ Fusion of 2 to 7 Thoracic Vertebral Joints with Interbody Fusion Device, Posterior Approach, Anterior Column, Open Approach (ICD-10-PCS; 2023-08-28)
PROC: 01NB0ZZ Release Lumbar Nerve, Open Approach (ICD-10-PCS; 2023-08-28)
PROC: 0QH304Z Insertion of Internal Fixation Device into Left Pelvic Bone, Open Approach (ICD-10-PCS; 2023-08-28)
PROC: 0QH204Z Insertion of Internal Fixation Device into Right Pelvic Bone, Open Approach (ICD-10-PCS; 2023-08-28)
PROC: 0SP00AZ Removal of Interbody Fusion Device from Lumbar Vertebral Joint, Open Approach (ICD-10-PCS; 2023-08-28)
PROC: 0SP30AZ Removal of Interbody Fusion Device from Lumbosacral Joint, Open Approach (ICD-10-PCS; 2023-08-28)
PROC: 8E0WXBZ Computer Assisted Procedure of Trunk Region (ICD-10-PCS; 2023-08-28)
PROC: 0SG10AJ Fusion of 2 or more Lumbar Vertebral Joints with Interbody Fusion Device, Posterior Approach, Anterior Column, Open Approach (ICD-10-PCS; principal; 2023-08-28 08:30)
PROC: 30233N1 Transfusion of Nonautologous Red Blood Cells into Peripheral Vein, Percutaneous Approach (ICD-10-PCS; 2023-08-31)
DX: M43.17 Spondylolisthesis, lumbosacral region (principal); D62 Acute posthemorrhagic anemia; M48.56XA Collapsed vertebra, not elsewhere classified, lumbar region, initial encounter for fracture; K56.7 Ileus, unspecified; N13.8 Other obstructive and reflux uropathy; I10 Essential (primary) hypertension; J44.89 Other specified chronic obstructive pulmonary disease; M51.36 Other intervertebral disc degeneration, lumbar region; M48.062 Spinal stenosis, lumbar region with neurogenic claudication; M47.816 Spondylosis without myelopathy or radiculopathy, lumbar region; M47.817 Spondylosis without myelopathy or radiculopathy, lumbosacral region; M48.07 Spinal stenosis, lumbosacral region; M40.36 Flatback syndrome, lumbar region; M40.37 Flatback syndrome, lumbosacral region; M40.205 Unspecified kyphosis, thoracolumbar region; G47.9 Sleep disorder, unspecified; G89.29 Other chronic pain; K21.9 Gastro-esophageal reflux disease without esophagitis; E78.5 Hyperlipidemia, unspecified; N40.1 Benign prostatic hyperplasia with lower urinary tract symptoms; K57.30 Diverticulosis of large intestine without perforation or abscess without bleeding; K80.20 Calculus of gallbladder without cholecystitis without obstruction; G47.30 Sleep apnea, unspecified; R30.0 Dysuria; R73.03 Prediabetes; Z86.73 Personal history of transient ischemic attack (TIA), and cerebral infarction without residual deficits; Z98.1 Arthrodesis status; Z86.018 Personal history of other benign neoplasm; Z87.891 Personal history of nicotine dependence; Z79.51 Long term (current) use of inhaled steroids; Z79.899 Other long term (current) drug therapy; Z79.82 Long term (current) use of aspirin; Z88.8 Allergy status to other drugs, medicaments and biological substances; Z87.19 Personal history of other diseases of the digestive system
CPT/HCPCS: 71045; 72100; 72131; 74019; 80048; 80053; 82805; 85025; 85027; 86850; 86891; 86900; 86901; 86920; 94760

== ENCOUNTER → 2023-12-25 | Outpatient (CLI) | payer MEDICARE ==
--- NOTE | 2023-12-25 12:34 | XR ---
EXAMINATION TYPE: XR knee complete bilateral DATE OF EXAM: 12/25/2023 COMPARISON: NONE HISTORY: Pain TECHNIQUE: Three views of bilateral knee are submitted. FINDINGS: RIGHT KNEE: There is chondrocalcinosis with moderate to severe narrowing of the medial compartment an d mild narrowing of the lateral femoral compartment. There is marginal spurring. Soft tissue calcific ation seen in the suprapatella bursa with a small amount fluid. No erosive changes. Osseous structures are intact. No acute fracture seen. LEFT KNEE: There is chondrocalcinosis with moderate to severe narrowing of the medial compartment and mild narrowing of the lateral femoral compartment. There is marginal spurring. There is a suprapatel lar bursa with a small amount fluid. No erosive changes. Osseous structures are intact. No acute fracture seen. IMPRESSION: 1. Moderate to severe bilateral osteoarthritis favored over deposition most marked involvement of the medial compartment bilaterally. 2. Small suprapatellar bursal fluid collections bilaterally may be associated with internal derangeme nt..
== END | disposition home or self-care (01) ==
LOC: RADXRMAIN 12:01
PROVIDERS: ATTEND Family Medicine
DX: M17.0 Bilateral primary osteoarthritis of knee (principal)

== ENCOUNTER → 2024-01-04 | Outpatient (CLI) | payer MEDICARE ==
[2024-01-04 18:47] LABS: Alternaria alternata IgE <0.10 kU/L; Aspergillus fumagatus IgE <0.10 kU/L; Birch IgE <0.10 kU/L; Cat Epith & Dander IgE <0.10 kU/L; Cladosporian herbarum IgE <0.10 kU/L; Cockroach IgE <0.10 kU/L; Ragweed,Common IgE 0.17 kU/L
[2024-01-04 18:48] LABS: Dermato. farinae IgE 0.15 kU/L; Dog Dander IgE <0.10 kU/L; Maple (Box Elder) IgE 0.28 kU/L; Oak IgE 0.25 kU/L
== END | disposition home or self-care (01) ==
LOC: LABWHC1 09:53
PROVIDERS: ATTEND Nurse Practitioner Family
DX: J30.89 Other allergic rhinitis (principal)
CPT/HCPCS: 36415; 82785; 86003

== ENCOUNTER → 2024-05-27 | Outpatient (CLI) | payer MEDICARE ==
--- NOTE | 2024-05-27 11:15 | MR ---
EXAMINATION TYPE: MR cervical spine wo con DATE OF EXAM: 05/27/2024 COMPARISON: 11/08/2022 HISTORY: Neck pain, headaches, RUE radiculopathy. TECHNIQUE: Multiplanar, multisequence images of the cervical spine were acquired without contrast. C2-C3: There is grade 1 anterolisthesis stable with moderate degenerative disc disease and posterior disc osteophyte complex/broad-based disc protrusion. Uncovertebral joint hypertrophy and facet arthro marcin contribute to moderate left and moderate to severe right foraminal encroachment. C3-C4: Severe degenerative disc disease with posterior disc osteophyte complex and disc protrusion re sulting in moderate canal stenosis. Facet arthropathy with severe bilateral foraminal encroachment. C4-C5: Severe degenerative disc disease with posterior spurring and disc osteophyte complex\disc prot rusion. There is facet arthropathy and uncovertebral joint hypertrophy. Severe bilateral foraminal en croachment and mild central stenosis. C5-C6: Fusion of the disc space at C5-C6. There is mild posterior spondylosis. Facet arthropathy and uncovertebral joint hypertrophy with mild left and moderate right foraminal encroachment. C6-C7: Severe degenerative disc disease with broad-based disc protrusion\disc osteophyte complex resu lting in severe canal stenosis and bilateral foraminal encroachment. C7-T1: No evidence for degenerative disc disease. No disc bulge/herniation or protrusion. No Canal stenosis. Foramina are patent bilaterally. Severe degenerative disc disease in the upper thoracic spine with posterior disc osteophyte complex. Cervical segments are intact. There is normal alignment. Cervical spinal cord is of normal signal. Craniovertebral junction relationships are within normal limits. IMPRESSION: 1. Severe multilevel degenerative disc disease with multilevel canal stenosis and disc protrusion\dis c osteophyte complex. Most marked at C3-C4 and C6-C7 with severe canal stenosis and bilateral foramin al encroachment. Findings are similar to prior exam.
== END | disposition home or self-care (01) ==
LOC: RADMRIMAIN 09:57
PROVIDERS: ATTEND Orthopaedic Surgery
DX: M47.812 Spondylosis without myelopathy or radiculopathy, cervical region (principal); M50.10 Cervical disc disorder with radiculopathy, unspecified cervical region; M25.78 Osteophyte, vertebrae; M48.02 Spinal stenosis, cervical region
CPT/HCPCS: 72141

== ENCOUNTER → 2024-08-15 | Outpatient (CLI) | payer MEDICARE ==
[2024-08-15 15:04] LABS: Basophils # (A) 0.09 X 10*3/uL (0.00-0.10); Basophils % (A) 0.8 %; Eosinophils # (A) 0.29 X 10*3/uL (0.04-0.35); Eosinophils % (A) 2.7 %; HGB 13.1 g/dL (13.0-17.0); Lymphocytes # (A) 3.51 X 10*3/uL (0.90-5.00); Lymphocytes % (A) 32.4 %; MCHC 31.2 g/dL (32.0-37.0); MCV 86.4 FL (80.0-97.0); Mean Platelet Volume 12.3 FL (9.5-12.2); Monocytes # (A) 0.84 X 10*3/uL (0.20-1.00); Monocytes % (A) 7.7 %; NRBC Per 100 WBC 0 X 10*3/uL (0.00-0.01); Neutrophils # (A) 6.09 X 10*3/uL (1.80-7.70); Neutrophils % (A) 56.1 %; Platelet Count 237 X 10*3/uL (140-440); RBC 4.86 X 10*6/uL (4.40-5.60); RDW 14.2 % (11.5-14.5); WBC 10.85 X 10*3/uL (4.50-10.00)
[2024-08-15 15:41] LABS: ALT 20 U/L (10-49); AST 25 U/L (14-35); Albumin/Globulin Ratio 1.48 Ratio (1.60-3.17); Alkaline Phosphatase 92 U/L (41-126); BUN/Creat Ratio 11.62 Ratio (12.00-20.00); Blood Urea Nitrogen 9.3 mg/dL (9.0-27.0); Carbon Dioxide 26.9 mmol/L (21.6-31.8); Chloride 104 mmol/L (96-109); Globulin 2.7 g/dL (1.6-3.3); Glucose 110 mg/dL (70-110); Potassium 4.9 mmol/L (3.5-5.5); Sodium 140 mmol/L (135-145); Total Bilirubin 0.4 mg/dL (0.3-1.2); Total Protein 6.7 g/dL (6.2-8.2)
[2024-08-15 15:43] LABS: INR 1.03 sec (0.93-1.11); Prothrombin Time 11.1 sec (9.9-11.9)
== END | disposition home or self-care (01) ==
LOC: LABWHC1 09:09
PROVIDERS: ATTEND Family Medicine
CPT/HCPCS: 36415; 80053; 82306; 85025; 85610

== ENCOUNTER → 2024-10-21 | Outpatient (CLI) | payer MEDICARE ==
[2024-10-21 19:44] LABS: BUN/Creat Ratio 14.62 Ratio (12.00-20.00); Blood Urea Nitrogen 11.7 mg/dL (9.0-27.0); Calcium 9.3 mg/dL (8.7-10.3); Carbon Dioxide 27.9 mmol/L (21.6-31.8); Chloride 103 mmol/L (96-109); Glucose 73 mg/dL (70-110); Potassium 4.4 mmol/L (3.5-5.5); Sodium 142 mmol/L (135-145)
[2024-10-21 19:59] LABS: HGB 13.7 g/dL (13.0-17.0); MCH 26.6 pg (27.0-32.0); MCHC 30.4 g/dL (32.0-37.0); MCV 87.4 FL (80.0-97.0); Mean Platelet Volume 12.5 FL (9.5-12.2); NRBC Per 100 WBC 0 X 10*3/uL (0.00-0.01); Platelet Count 260 X 10*3/uL (140-440); RBC 5.15 X 10*6/uL (4.40-5.60); WBC 10.09 X 10*3/uL (4.50-10.00)
[2024-10-21 20:55] LABS: INR 1.02 sec (0.93-1.11); Prothrombin Time 11.4 sec (9.9-11.9)
== END | disposition home or self-care (01) ==
LOC: LABPAT 11:55
PROVIDERS: ATTEND Orthopaedic Surgery
DX: Z01.812 Encounter for preprocedural laboratory examination (principal); M48.02 Spinal stenosis, cervical region; M50.00 Cervical disc disorder with myelopathy, unspecified cervical region; Z22.322 Carrier or suspected carrier of Methicillin resistant Staphylococcus aureus; Z79.899 Other long term (current) drug therapy; Z79.01 Long term (current) use of anticoagulants
CPT/HCPCS: 36415; 80048; 85027; 85610; 86850; 86900; 86901; 87070

== ENCOUNTER 2024-10-27 09:45 | Inpatient (IN) | payer MEDICARE ==
[2024-10-23 11:59] VITALS: BMI 27.8
--- NOTE | 2024-11-02 09:29 | P.HPOR ---
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 His symptoms include severe neck pain, bilateral upper extremity weakness (motor strength 3-4/5), decreased branch examiner strength (3/5 bilateral), gait instability, and sensory changes in a C3-7 distribution. Imaging reveals grade I spondylolisthesis at C2-3, severe stenosis at C3-4 and C4-5, and significant degeneration at C6-7, with MRI showing evidence of early myelomalacia. Conservative measures including physical therapy and pain management have failed to prevent progression of symptoms. Given the progressive neurological deterioration and presence of cord signal changes, a two-stage surgical intervention has been planned. Stage I will involve a revision anterior cervical discectomy and fusion (ACDF) at C2-3, C3-4, C4-5, and C6-7, while Stage II will consist of a C2-T2 posterolateral instrumented fusion with decompression. The patient has maintained smoking cessation for six weeks and will require primary care and cardiology clearance prior to surgery. ------- .D:Date: 09/03/24 : 08:04pm .T:Title: CLINICAL NARRATIVE HISTORY Date of Service: 09/03/24 HISTORY OF PRESENT ILLNESS Michael is a 74-year-old male who presents for neurosurgical evaluation with a progressive constellation of cervical spine symptoms. His primary complaints include severe neck pain, progressive upper extremity weakness, and an incre asingly unsteady gait that has begun to impact his daily activities and quality of life. The patient has a significant history of cervical spine disease, having previously undergone a non-instrumented anterior cervical discectomy and fusion (ACDF) at C5-6. Despite initial improvement following this procedure, he has developed adjacent segment disease both above and below the fusion level, which is now causing significant neurological compromise. His current symptoms are characterized by: * Progressive neck pain that has become severe and constant Bilateral upper extremity weakness that impacts his ability to perform fine motor tasks Decreased branch examiner strength that affects his daily activities Gait instability that has raised concern for safety with ambulation Sensory changes in a C3-7 distribution bilaterally The progression of his symptoms correlates with recent imaging studies that demonstrate multi-level degenerative changes with evidence of spinal cord compression and early myelomalacia. Of particular concern is the development of a grade I spondylolisthesis at C2-3, severe stenosis at C3-4 and C4-5, and significant adjacent segment disease at C6-7. The presence of cord signal tenorio ges on MRI suggests that his condition has progressed to a critical stage requiring urgent surgical intervention. IMPACT ON ACTIVITIES OF DAILY LIVING The patient reports significant deterioration in his ability to perform routine tasks. Specific functional impairments include: * Difficulty with buttons and fine motor tasks due to decreased hand dexterity Impaired balance affecting his ability to walk safely Unable to maintain prolonged neck positions due to pain Increased dependency on family members for certain activities Growing concern about falls due to gait instability PREVIOUS TREATMENTS Prior to presenting for surgical evaluation, the patient has attempted various conservative measures, including: * Physical therapy Pain management Activity modification Previous cervical fusion at C5-6 Despite these interventions, his condition has continued to deteriorate, with imaging now demonstrating significant structural changes and neurological compromise. SOCIAL HISTORY The patient has been compliant with medical recommendations and has successfully maintained smoking cessation for the past six weeks, understanding the critical importance of this for surgical success. He lives with family who will be available to assist with post-operative care and rehabilitation. TREATMENT RATIONALE Given the progressive nature of his myelopathy, the presence of cord signal changes, and the failure of conservative measures, surgical intervention is now strongly indicated. The complexity of his condition, including multi-level involvement and previous surgical history, necessitates a staged surgical approach to achieve adequate decompression and stabilization while minimizing perioperative risk. The proposed staged surgical intervention will address: * The existing adjacent segment disease Progressive neurological deterioration Cervical instability Spinal cord compression with early myelomalacia Without surgical intervention, the patient faces a high risk of continued neurological deterioration that could progress to severe disability. The presence of myelomalacia on imaging suggests that some neurological changes may be permanent, emphasizing the urgency of surgical intervention to prevent further progression. DECISION MAKING After thorough discussion of the natural history of his condition, review of all treatment options, and detailed explanation of surgical risks and benefits, the patient expresses understanding and desire to proceed with the staged surgical intervention. He demonstrates appropriate decision-making capacity and has realistic expectations regarding surgical outcomes. The comprehensive surgical plan has been formulated to address both the anterior and posterior elements of his cervical spine pathology, with the goal of achieving neural decompression, spinal stability, and prevention of further neurological deterioration. Meir Santiago DO] Date: 10/30/24 ------- .D:Date: 09/03/24 : 04:54pm .T:Title: PRE-OPERATIVE ASSESSMENT AND SURGICAL AUTHORIZATION PATIENT INFORMATION Name: Michael Age: 74 Gender: Male Chief Complaint: Severe neck pain, upper extremity weakness, and unsteady gait IMAGING STUDIES Cervical X-Ray (05/19/2024) * C2-3: Grade I spondylolisthesis C3-4 and C4-5: Advanced degenerative disc disease with severe disc collapse, height loss, and facet arthrosis C5-6: Previous non-instrumented ACDF C6-7: Severe spondylosis with disc collapse and facet arthrosis Flattened cervical lordosis due to collapse C0-1 and C1-2: Stable No acute fractures or lesions noted Cervical MRI (05/27/2024) * C2-3: Grade I spondylolisthesis with bilateral foraminal stenosis, partially reduced on supine imaging C3-4 and C4-5: Severe spondylosis with severe central and bilateral foraminal stenosis, spondylotic herniated nucleus pulposus, facet arthrosis C6-7: Advanced degenerative changes with severe disc collapse, central and foraminal stenosis Evidence of pincer-type lesions with anterior and posterior stenosis Early myelomalacia changes in cord signal No acute fractures or lesions PHYSICAL EXAMINATION General * Alert and oriented x3 Well-hydrated and well-nourished No acute distress Neurological * Mental Status: Alert and oriented with normal cognition Cranial Nerves: II-XII intact Motor Strength (0-5/5): * Upper Extremities: 4/5 bilateral shoulder abduction, biceps, triceps Scalder strength: 3/5 bilateral Left wrist extension: 3/5 Lower Extremities: 5/5 throughout Reflexes * Deep Tendon Reflexes: 2+ throughout Tadeo's sign: Present bilaterally Clonus: Absent Babinski: Absent Sensory * Dermatomal deficits: C3-7 bilateral Otherwise intact to light touch and pain sensation Functional Assessment * Impaired hand and finger dexterity Abnormal heel-toe walk Unable to perform single leg stance Positive Spurling's sign Negative L'Hermitte's sign DIAGNOSIS Primary Diagnoses: * 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, 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) Cervical radiculopathy (ICD-10: M54.12) Cervical spinal stenosis with myelopathy (ICD-10: M47.12) SURGICAL PLAN Two-stage surgical intervention: Stage I Procedure: Revision anterior cervical discectomy and fusion (ACDF) at C2-3, C3- 4, C4-5, and C6-7 CPT Codes: * 90564: Primary ACDF, including disc space preparation 67742 x3: Additional levels 03456: Anterior instrumentation, 2-3 segments 90661: Anterior instrumentation, 4-7 segments Stage II Procedure: C2-T2 posterolateral instrumented fusion with decompression CPT Codes: * 81125: Posterior cervical fusion 46400: Posterior segmental instrumentation (3-6 vertebral segments) 39108: Laminectomy for decompression of spinal cord SURGICAL AUTHORIZATION RATIONALE Medical Necessity * Progressive neurological deterioration evidenced by: Documented upper extremity weakness (3-4/5 motor strength) Positive Tadeo's signs Impaired functional mobility MRI evidence of spinal cord signal changes (myelomalacia) Failed conservative management: Progressive symptoms despite non-operative treatment Documented adjacent segment disease following previous ACDF Presence of significant stenosis at multiple levels Risk of further neurological deterioration without surgical intervention: Evidence of early myelomalacia Multiple level compression Progressive weakness and functional decline Imaging correlation: Multi-level severe stenosis Grade I spondylolisthesis Advanced degenerative changes Cord signal changes on MRI Staged Approach Justification * Complex reconstruction requiring both anterior and posterior approaches Multiple level involvement (C2-T2) Need for circumferential decompression and stabilization Presence of previous fusion requiring revision Extent of surgical correction needed to address deformity and neurological compression PRE-OPERATIVE REQUIREMENTS * Primary care clearance Cardiology clearance MRSA screening Complete blood work Smoking cessation verification (minimum 6 weeks pre- and post-operation) INFORMED CONSENT Detailed surgical risks have been discussed with the patient, including but not limited to: * Neurological injury Hardware complications Failed fusion Infection Adjacent segment disease Medical complications Need for additional surgery Patient demonstrates understanding and wishes to proceed with surgical intervention as outlined above. Visit Duration: >30 minutes Counseling: >50% of visit time spent on detailed discussion of condition, treatment options, and surgical planning. # SIGNED BY Meir Santiago ([facility])09/09/2024 08:03PM Past Medical History Past Medical History: Asthma, COPD, CVA/TIA, GERD/Reflux, Hyperlipidemia, Osteoarthritis (OA), Pneumonia, Sleep Apnea/CPAP/BIPAP Additional Past Medical History / Comment(s): Hx diverticulitis. Chronic back pain. TIA's-no residual effects, frequent cough since February 2022 + COVID, hx ulcer, History of Any Multi-Drug Resistant Organisms: None Reported Past Surgical History: Back Surgery, Hernia Repair, Tonsillectomy Additional Past Surgical History / Comment(s): BACK SURGERY W/ RODS & SCREWS; Cervical FUSION. VARICOCELE SURG, MANSI INGUINAL HERNIA REPAIR. BRONCHOSCOPY. Multiple pain procedures in lower back and neck. Mass removed from lower jaw(benign) Past Anesthesia/Blood Transfusion Reactions: No Reported Reaction Smoking Status: Former smoker - Past Family History Mother Family Medical History: No Reported History Medications and Allergies Home Medications Medication Instructions Recorded Confirmed Type Multivitamins, Thera [Multivitamin] 1 tab PO DAILY 04/06/16 10/23/24 History Omeprazole [PriLOSEC] 40 mg PO DAILY 10/19/20 10/23/24 History Aspirin EC [Ecotrin Low Dose] 81 mg PO HS 11/29/20 10/23/24 History Cholecalciferol [Vitamin D3 (25 25 mcg PO DAILY 11/29/20 10/23/24 History Mcg = 1000 Iu)] Vitamin C (Unknown Dose) 1 tab PO DAILY 12/20/22 10/23/24 History Albuterol Nebulized [Ventolin 2.5 mg INHALATION Q6H PRN 12/22/22 10/23/24 History Nebulized] Calcium Carbonate [Calcium] 600 mg PO DAILY 08/22/23 10/23/24 History Ipratropium [place] 0.06%Nasal 2 spray EA NOSTRIL QID PRN 08/22/23 10/23/24 History [Atrovent Nasal 0.06%] Gabapentin 300 mg PO TID 10 Days #30 cap 09/04/23 10/23/24 Rx Allergies Allergy/AdvReac Type Severity Reaction Status Date / Time cefuroxime Allergy Nausea & Verified 08/22/23 11:57 Vomiting Physical Examination Osteopathic Statement: *. No significant issues noted on an osteopathic structural exam other than those noted in the History and Physical/Consult.
[2024-11-03] MEDS ORDERED: GABAPENTIN 300 MG CAP PO PRN (05:00)
[2024-11-03] MEDS ORDERED: TRANEXAMIC 1,000 MG/100ML-NACL 1,000 MG in SALINE 1 100ML.BAG IVPB PRN (05:00)
[2024-11-03] MEDS ORDERED: ONDANSETRON 4 MG/2 ML VIAL IVP PRN (05:00)
[2024-11-03] MEDS ORDERED: fentaNYL (PF) 50 MCG/ML 2 ML AMP IVP PRN (06:05)
[2024-11-03] MEDS ORDERED: MIDAZOLAM 2 MG/2 ML VIAL IV PRN (06:05)
[2024-11-03] MEDS: IV FLUID CONTINUATION 1,000 ML IV ONE ×2 (06:40→06:50)
[2024-11-03] MEDS: LACTATED RINGERS 1,000 ML IV SCH (06:40)
[2024-11-03] MEDS: LIDOCAINE 1% (10MG/ML) FOR IV START INTRADERMA PRN (06:40)
[2024-11-03] MEDS: ONDANSETRON 4 MG/2 ML VIAL IVP ONE (06:50)
[2024-11-03] MEDS: DEXAMETHASONE SOD PHOSPHATE 4 MG/ML 1 ML VIAL IV ONE (06:50)
[2024-11-03] MEDS: ACETAMINOPHEN TAB 500 MG TAB PO PRN (06:50)
--- NOTE | 2024-11-03 07:22 | P.ANPRN ---
Procedure Note - Anesthesia - Invasive Line Right Arterial Line Time Out Performed: Yes (0650) Date of Procedure: 11/03/24 Time of Procedure: 06:51 Location of Patient: PreOp Preparation: Sterile Prep, Sterile Dressing Arterial Line Location: Radial (right) Ultrasound Used: No Purpose - Visualization and Identification of Vasculature: No Needle Guage: 20g Image Stored and Saved: No Narrative: Invasive line placement per sterile protocol utilized.
[2024-11-03] MEDS ORDERED: LABETALOL 5 MG/ML VIAL MDV ONE (07:25)
[2024-11-03] MEDS ORDERED: LIDOCAINE 1% INJ 10MG/ML (20 ML MDV) ONE (07:25)
[2024-11-03] MEDS ORDERED: ePHEDrine 50 MG/ML 1 ML VIAL ONE (07:25)
[2024-11-03] MEDS ORDERED: KETAMINE HCL IN 0.9 % NACL 50 MG/5 ML SYRINGE ONE (07:25)
[2024-11-03] MEDS ORDERED: HYDROmorphone (PF) 1 MG/ML ONE (07:25)
[2024-11-03] MEDS ORDERED: ROCURONIUM 10 MG/ML (5 ML VIAL) IV ONE (07:25)
[2024-11-03] MEDS ORDERED: MIDAZOLAM 2 MG/2 ML VIAL ONE (07:25)
[2024-11-03] MEDS ORDERED: SUCCINYLCHOLINE CHLORIDE 200 MG/10 ML VIAL IV ONE (07:25)
[2024-11-03] MEDS ORDERED: NEOSTIGMINE 1 MG/ML 10 ML VIAL ONE (07:25)
[2024-11-03] MEDS ORDERED: GLYCOPYRROLATE 0.2 MG/ML 2 ML VIAL ONE (07:25)
[2024-11-03] MEDS ORDERED: TRANEXAMIC 1,000 MG/100ML-NACL PREMIX BAG ONE (07:25)
[2024-11-03] MEDS ORDERED: fentaNYL (PF) 50 MCG/ML 2 ML AMP ONE (07:25)
[2024-11-03] MEDS ORDERED: PROPOFOL 10 MG/ML 20 ML VIAL IV ONE (07:25)
[2024-11-03] MEDS: THROMBIN (BOVINE) 5,000 UNIT VIAL TOPICAL ONE ×2 (07:59)
[2024-11-03] MEDS: LACTATED RINGERS 1,000 ML IV ONE ×2 (09:48→12:34)
--- NOTE | 2024-11-03 13:58 | P.PN ---
Progress Note - Text Progress Note Date: 11/03/24 POST OP: DIAGNOSIS: CERVICAL SPONDYLOSIS, STENOSIS WITH MYELOPATHY PROCEDURE: STAGE I: C2-C7 ACDF, REVISION STAGE II: C2-T1 DECOMPRESSION AND FUSION ANESTHESIA: GETA EBL: 175 CC FLUIDS: 2200CC URINE: 350 CC COMPLICATION: NONE DISPO: STABLE TO PACU PLAN: ADMIT TO FLOOR 4S WITH TELE OVERNIGHT AND O2 MONITORING PAIN CONTROL NON CONTRASTED CT OF THE CERVICOTHORACIC SPINE GI PPX MECH DVT PPX 24 HRS THEN ASA 81MG PT/OT DAILY MAINTAIN DRESSING CDI DRAINS ANT/POST--RECORD OUTPUT
[2024-11-03] MEDS ORDERED: SENNOSIDES-DOCUSATE SODIUM 1 EACH TAB PO PRN (14:02)
[2024-11-03] MEDS ORDERED: HYDROcodone/APAP 5-325MG 1 EACH TAB PO PRN (14:02)
[2024-11-03] MEDS ORDERED: MAGNESIUM HYDROXIDE 2,400 MG/30 ML CUP PO PRN (14:02)
[2024-11-03] MEDS: hydrALAZINE HCL 20 MG/ML 1 ML VIAL IVP STA (14:30)
[2024-11-03] MEDS: ALBUTEROL NEBULIZED 2.5 MG/3 ML INHALATION STA (14:41)
--- NOTE | 2024-11-03 14:44 | XR ---
EXAMINATION TYPE: XR cervical spine limited, FL guidance operating room DATE OF EXAM: 11/03/2024 2:08 PM COMPARISON: Chest radiographs from CLINICAL INDICATION: Male, 74 years old with history of C2-T2 Fusion, , Fluoroscopy: This patient had C2-T2 Fusion with Dr. Santiago 1.28min fluoro time 2.2002 DAP 10 images submitted. [facility], , 11/03/2024 2:41 PM
[2024-11-03] MEDS: ENALAPRILAT 1.25 MG/ML 1 ML VIAL IVP STA (16:34)
[2024-11-03] MEDS: HYDROmorphone 0.5 MG/0.5 ML SYRINGE IVP PRN (16:56)
[2024-11-03] MEDS: ONDANSETRON 4 MG/2 ML VIAL IVP PRN (19:50)
[2024-11-03] MEDS: HYDROmorphone 1 MG/ML 1 ML SYRINGE IVP PRN (19:50)
[2024-11-03] MEDS: ACETAMINOPHEN TAB 325 MG TAB PO SCH (20:06)
[2024-11-03] MEDS: GABAPENTIN 300 MG CAP PO SCH (20:06)
--- NOTE | 2024-11-03 20:42 | P.OP ---
Date of Procedure: 11/03/24 Preoperative Diagnosis: 1. 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 CERVICAL MYELOPATHY 3. 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 C6-7 HNP WITH STENOSIS, SEVERE 6. UE PARESTHESIAS 7. UE WEAKNESS 8. COMPLEX MEDICAL PATIENT Postoperative Diagnosis: 1. 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 CERVICAL MYELOPATHY 3. 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 C6-7 HNP WITH STENOSIS, SEVERE 6. UE PARESTHESIAS 7. UE WEAKNESS 8. COMPLEX MEDICAL PATIENT Procedure(s) Performed: STAGE I: 1. C2-3 ANTERIOR CERVICAL ARTHRODESIS 2. C3-4 ANTERIOR CERVICAL ARTHRODESIS 3. C4-5 ANTERIOR CERVICAL ARTHRODESIS 4. C6-7 ANTERIOR CERVICAL ARTHRODESIS 5. ANTERIOR INSTRUMENTATION C2-3, C3-4, C4-5, C6-7 6. INSERTION OF INTERBODY, BIOMECHANICAL DEVICES C2-3, C3-4, C4-5, C6-7 7. EXPLORATION OF FUSION C5-6 USE OF IONM USE OF IO MISCROSCOPE Implants: STAGE I: SECURE C 8MM AND 9MM CAGES; 10, 12, 14 MM SCREWSPLATE MAGNATOS AUTOGFRAFT STAGE II: BERNY POSTERIOR CERVICAL SYSTEN, NOVA SCOTIA RODS AND SCREWS DBM, FIBERS, AUTOGRAFT Anesthesia: GETA Surgeon: Meir Santiago Nut Sheller Machine Operator #1: Marshal Anthony (Was present and assisted with all aspects of the case from position to dressing placement) Estimated Blood Loss (ml): 175 IV fluids (ml): 2,200 Urine output (ml): 350 Pathology: none sent Condition: stable Disposition: PACU Indications for Procedure: This 74-year-old male presents with progressive cervical spondylotic myelopathy following a previous C5-6 ACDF, now demonstrating significant adjacent segment disease both above and below the fusion level. 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 Imaging reveals grade I spondylolisthesis at C2-3, severe stenosis at C3-4 and C4-5, and significant degeneration at C6-7, with MRI showing evidence of early myelomalacia. Conservative measures including physical therapy and pain management have failed to prevent progression of symptoms. Given the progressive neurological deterioration and presence of cord signal changes, a two-stage surgical intervention has been planned. Stage I will involve a revision anterior cervical discectomy and fusion (ACDF) at C2-3, C3-4, C4-5, and C6-7, while Stage II will consist of a C2-T2 posterolateral instrumented fusion with decompression. Risks and benefits were discussed again as well as possibility of levels to be fused. Pt expressed understanding and stated that whatever was necessary to give him the neck he needs he is OK with. He was comfortable proceeding with surgery. Description of Procedure: TWO STAGE ANTERIOR POSTERIOR NECK FUSION C2-3, C3-4, C4-5, C6-7 WITH C2-T1 POSTERIOR STAGE I: The patient was seen and examined in the preoperative area. All preoperative protocols were followed. Informed consent was obtained, risks and benefits of the procedure were discussed at length. Risks including bleeding infection damage to the surrounding tissue and risk of reoperation were discussed with the patient. Risk of anesthesia up to and including was discussed with the patient. These are outlined in the risk review. They were willing to accept these risks and all the risks of surgery. The patient was given a weight-based dose of antibiotics in the form of 2 g Ancef. The patient was seen and evaluated by the anesthesia team who deemed them fit for surgery. The site was marked, the patient was willing to proceed with the procedure. The patient was transferred to the operative suite by the Department of anesthesia. They were then drifted off to sleep by the department anesthesia and GETA was performed. The patient tolerated this well. Mota catheter was placed by nursing staff, a-traumatically. Once confirmation of lines and ventilation the patient was transferred to a Supine Denny table very carefully. All bony prominences including wrists, elbows, axilla, chest, hips, and thighs, and feet were padded very well. Special attention was paid to the genitalia, and these were padded accordingly. SCDs were placed on bilateral lower extremities and were connected. Arms were well padded and placed at their side thumbs up. Once in position, again we confirmed good ventilation capabilities and that lines were running appropriately. The patients anterior cervical spine was then exposed. 1010s were placed outlining the incision site. Standard alcohol was used to clean the incision site and allowed to dry. C-arm was used to bio-shasta the patient and confirm level for incision which was marked with a skin marker. Operative briefing was performed with all teams and everyone in agreement to proceed. The patient was then prepped and draped in a normal sterile fashion. Timeout was then performed, and all parties agreed with the procedure to be performed. Transverse skin incision was then made on the RIGHT side of the patient's neck 3 cm and dissection taken down to the platysma which was split transversely. Sub platysma flap was made, and interval identified between SCM and medial structures. Omohyoid was visualized and protected. Blunt dissection taken down to the anterior cervical fascia which was identified. Blunt probe was then placed and lateral image taken which confirmed levels for operation. These levels were then marked with a bovi. Subperiosteal dissection of the longissimus muscles were then done over these levels identifying uncovertebral joints bilaterally. The retractor was then placed deep to these muscles and held in place with a bed arm. Starting at C6-7, Gheens pins were placed into C6 and C7 and gentle distraction taken out over the levels. Sandee rongeur used to remove disc material. Operating microscope brought in for visualization. Complete discectomy performed at this level with curette, rongure and pituitary. There was significant anterior osteophyte formation that required burring down with the high speed dragan. Additional osteophytes were removed posteriorly until PLL was identified. 6-0 up curette then used to identify the canal and resect the PLL. 2-0 and 3-0 Kerrison used then to remove PLL and disc herniation and performed b/l foraminotomies. Once good decompression was accomplished, meticulous hemostasis was performed. The level was able to be mobilized without any IONM changes. Sizers were then placed under lateral fluoroscopy until the desired height and lordosis. Cage was then selected, packed with autograft and allograft and placed under lateral imaging. Once in good position it was tested and stable. Motors run before and after cage placement were stable. The wound was irrigated, and autograft placed lateral to the cage anteriorly for fusion. The caspar pin was then removed from C6 and C7 and placed into C4 and C5. Gentle distraction taken out over C4-5 now. Complete discectomy done at C4-5 as described. Exuberant anterior osteophyte formation was noted and carefully burred down. Complete decompression including b/l foraminotomies and PLL resection was performed. The level was mobilized without IONM changes. Burring of endplates was minimal, remaining osteophytes removed as described. Spacers were then sized and placed under lateral imaging. Cage selected, packed with graft and placed under lateral images. Once in position, meticulous hemostasis performed, and motors remained stable before and after cage placement. AP image confirmed good placement of cages. The wound was irrigated. The caspar pin was then removed from C4 and placed into C3. Gentle distraction taken out over C3-4 now. Complete discectomy done at C3-4 as described. Similar exuberant anterior osteophyte formation was encountered and carefully removed with the high speed dragan. Complete decompression including b/l foraminotomies and PLL resection was performed. The level was successfully mobilized without IONM changes. Spacers were then sized and placed under lateral imaging. Cage selected, packed with graft and placed under lateral images. Once in position, meticulous hemostasis performed, and motors remained stable before and after cage placement. AP image confirmed good placement of cages. The wound was irrigated. The caspar pin was removed from C3 and placed in C2. Gentle distraction taken out over C2-3 now. Complete discectomy done at C2-3 as described. Significant anterior osteophyte formation was again encountered and carefully removed. Complete decompression including b/l foraminotomies and PLL resection was performed. The level was mobilized without any IONM changes. Spacers were then sized and placed under lateral imaging. Cage selected, packed with graft and placed under lateral images. Once in position, meticulous hemostasis performed, and motors remained stable before and after cage placement. AP image confirmed good placement of cages. The wound was irrigated. Exploration of the C5-6 level was then performed to assess previous fusion. Upon careful dissection and visualization, solid bony fusion was identified without any evidence of pseudarthrosis or hardware failure. The fusion mass showed excellent incorporation with mature bone formation. No motion was detected at this level upon stress testing. No intervention was required at this level given the solid arthrodesis. We then proceeded to anterior instrumentation at each level securing screws through anterior plate/cage construct into each level. Each screw was placed and measured on lateral imaging. All screws had good purchase. All locking mechanisms set. Final AP and lateral images taken confirmed good placement of hardware and good reduction and sabianist of height. The wound was then irrigated copiously with NSS. Surgicel placed deep in the wound. A deep drain placed out a separate incision and sewed into place. Layered closure then performed with 3-0 Vicryl in the platysma and subQ tissue. 4-0 Strata fix in the subcuticular tissue. The wound was then cleaned, and dried and skin glue placed. Once glue dried an Opifoam was placed. The patient was then transferred back to their hospital bed atraumatically and the drain held suction. Beds were exchanged for the second stage. The patient was placed in a Bajwa head clamp and this was secured with 60lb of pressure. This was tested and was stable. STAGE II: The patient was then transferred to the [facility] prone table with [place] head of measurement & insights; Post-positioning motors remained stable. All bony prominences including wrists, elbows, axilla, chest, hips, and thighs, and feet were padded very well. Special attention was paid to the genitalia and these were padded accordingly. SCDs were placed on bilateral lower extremities and were connected. Arms were well padded and placed tucked at his side thumbs down. Shoulders were gently taped down to the table.. Once in position, again we confirmed good ventilation capabilities and that lines were running appropriately. The patient's posterior cervical spine was then exposed. 1010s were placed outlining the incision site. Standard alcohol was used to clean the incision site and allowed to dry. C-arm was used to biomark the patient and confirm level for incision which was marked with a skin marker. Operative briefing was performed with all teams and everyone in agreement to proceed. The patient was then prepped and draped in a normal sterile fashion. Timeout was then performed and all parties were in agreement with the procedure to be performed. Midline skin incision made over the previously bio-marked area and dissection taken down midline to the SP of C2-T2. Subperiosteal dissection taken out over the lamina and lateral masses of C2-C7 and TVP of T1 and T2. Once exposure complete, the wound was irrigated and the C-arm brought in for imaging. A penfield 4 was used to bluntly dissect the medial border of C2 pedicle and placed for guidance. C arm used and a dragan hole made for the starting point. The C2 pedicle was then drilled in 2 mm increments to 16 mm using a ball tip feeler in between each drill session to make sure within the 4 land with a good bottom. Once this was accomplished a screw was selected and placed under lateral fluoroscopic guidance. Screw had a good purchase. This was then repeated on the contralateral side. AP confirmed good placement of both screws. We then proceeded to the T1 and T2 screws bilaterally. A high speed dragan was used to remove the facet joint of C7 and to create a starting point for T1. Pedicle finder was then passed into T1 and imaging taken to confirm placement this was then removed and a tap placed ball-tipped probe was then placed and 4 land of pedicle fell with good bottom. Screw was then measured and placed into T1 This is repeated on the contralateral side. Imaging confirmed good placement of all thoracic screws. The wound was then irrigated. Lateral mass screws were then drilled to 12 mm and placed at each level from C3-6. Each had a good bite. Rods were then sized and selected and cut to length. They were bent accordingly and lordosis and to fit the occiput plate. These were then secured into C2 bilaterally and then sequentially reduced into lateral mass screws and T1 screws without issues. All set screws were placed and were then final tightened and the position. Bilateral laminectomy, facetectomy and foraminotomies were then done from C2-T1 using high speed dragan, kerrison rongeur and upbiting curette. Bilateral laminotomy troughs were made with dragan followed by curette to release ligamentum. Rongure was then used to gently remove the lamina and facets posteriorly without issues. Meticulous hemostasis was performed after.. Motors were run before and after decompression and they remain stable. Good pulsations of the cord were noted after decompression. Foraminotomies then performed with kerrison rongeur and clean up of the laminectomy site. The wound was then copiously irrigated with 3 L of Ancef irrigation followed by 3 L of gentamicin irrigation followed by 3 L of normal sterile saline. Facet joints were drilled at each level to allow for fusion Surgicel was placed over the dura. MagnetOs were placed in the posterior lateral gutters along with autograft.. This was impacted into position for fusion. 2 g of powdered vancomycin was then placed deep within the wound and a deep drain was placed. We then proceeded with layered closure first in the deep fascia with #1 PDS then in the deep fascia followed by a running #1 stratafix. 0 Vicryl was used in the deep subq fascia 2-0 Vicryl placed in the superficial subq tissues. Skin augustin then approximated skin edges. The wound edges approximated very well. The wound was then cleaned and dressed sterilely with an operative foam dressing 4 x 4 and Tegaderm. The drain had good suction. The patient was placed in a hard cervical collar. The patient was transferred back to their hospital bed atraumatically. Bajwa head clamp was removed and pin sites were clear. The drain continued to hold suction. The patient was placed in a hard collar. The patient was then awakened and extubated by the department of anesthesia having tolerated the procedure very well with no complications. They were transferred to the postoperative care unit in stable condition.
[2024-11-03] MEDS: CYCLOBENZAPRINE 5 MG TAB PO PRN (22:13)
[2024-11-03] MEDS: hydrALAZINE HCL 20 MG/ML 1 ML VIAL IVP PRN (22:13)
[2024-11-04] MEDS: HYDROcodone/APAP 10-325MG 1 EACH TAB PO PRN ×2 (00:12→11:55)
[2024-11-04] MEDS ORDERED: IPRATROPIUM BROMIDE 0.06% NASAL SPRAY (15 ML) EA NOSTRIL PRN (08:16)
--- NOTE | 2024-11-04 08:40 | P.CONS ---
History of Present Illness - Reason for Consult Consult date: 11/04/24 - Chief Complaint medical management - History of Present Illness This is a 74-year-old male who was admitted for extensive surgery with Dr. Santiago on cervical spine. Patient is status post C2-C7 ACDF and C2-T2 posterior cervical decompression fusion. Patient seen this morning sitting in chair at bedside. He reports a lot of pain. He is also having trouble with some tongue swelling. 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 Blood pressure is elevated this morning. Further medical history as noted below. Review of Systems Constitutional: Denies chills, Denies fever Ears, nose, mouth and throat: Reports swelling in mouth Cardiovascular: Denies chest pain, Denies dyspnea on exertion Respiratory: Denies cough, Denies dyspnea Gastrointestinal: Denies nausea, Denies vomiting Musculoskeletal: Reports neck pain, Denies arm numbness/tingling, Denies leg numbness/tingling Neurological: Denies headaches, Denies weakness Past Medical History Past Medical History: Asthma, COPD, CVA/TIA, GERD/Reflux, Hyperlipidemia, Osteoarthritis (OA), Pneumonia, Sleep Apnea/CPAP/BIPAP Additional Past Medical History / Comment(s): Hx diverticulitis. Chronic back pain. TIA's-no residual effects, frequent cough since February 2022 + COVID, hx ulcer, History of Any Multi-Drug Resistant Organisms: None Reported Past Surgical History: Back Surgery, Hernia Repair, Tonsillectomy Additional Past Surgical History / Comment(s): BACK SURGERY W/ RODS & SCREWS; Cervical FUSION. VARICOCELE SURG, MANSI INGUINAL HERNIA REPAIR. BRONCHOSCOPY. Multiple pain procedures in lower back and neck. Mass removed from lower jaw(benign) Past Anesthesia/Blood Transfusion Reactions: No Reported Reaction Smoking Status: Former smoker - Past Family History Mother Family Medical History: No Reported History Medications and Allergies Home Medications Medication Instructions Recorded Confirmed Type Multivitamins, Thera [Multivitamin] 1 tab PO DAILY 04/06/16 10/23/24 History Omeprazole [PriLOSEC] 40 mg PO DAILY 10/19/20 10/23/24 History Aspirin EC [Ecotrin Low Dose] 81 mg PO HS 11/29/20 10/23/24 History Cholecalciferol [Vitamin D3 (25 25 mcg PO DAILY 11/29/20 10/23/24 History Mcg = 1000 Iu)] Vitamin C (Unknown Dose) 1 tab PO DAILY 12/20/22 10/23/24 History Albuterol Nebulized [Ventolin 2.5 mg INHALATION Q6H PRN 12/22/22 10/23/24 History Nebulized] Calcium Carbonate [Calcium] 600 mg PO DAILY 08/22/23 10/23/24 History Ipratropium Bartlett 0.06%Nasal 2 spray EA NOSTRIL QID PRN 08/22/23 10/23/24 History [Atrovent Nasal 0.06%] Gabapentin 300 mg PO TID 10 Days #30 cap 09/04/23 10/23/24 Rx Allergies Allergy/AdvReac Type Severity Reaction Status Date / Time cefuroxime Allergy Nausea & Verified 11/03/24 06:14 Vomiting Physical Exam Vitals: Vital Signs Temp Pulse Pulse Resp BP BP BP 11/04/24 06:56 98.7 F 87 16 161/73 11/04/24 01:30 98 F 104 H 15 166/76 11/03/24 22:10 166/81 11/03/24 21:15 97 139/82 11/03/24 21:00 95 131/77 11/03/24 20:45 95 161/82 11/03/24 20:30 89 11/03/24 20:15 95 11/03/24 20:07 107 H 168/95 11/03/24 20:02 97.4 F L 100 15 179/99 11/03/24 20:00 91 11/03/24 19:45 91 11/03/24 19:30 86 11/03/24 18:37 97.3 F L 86 16 173/105 11/03/24 18:00 94 18 163/87 11/03/24 17:28 90 20 161/84 11/03/24 17:08 91 18 158/81 11/03/24 17:00 87 18 167/86 11/03/24 16:35 95 20 167/84 11/03/24 16:20 92 18 169/99 11/03/24 16:05 90 20 170/80 11/03/24 15:50 88 20 178/95 11/03/24 15:35 90 20 150/69 11/03/24 15:20 97 22 158/87 11/03/24 15:06 89 22 171/84 11/03/24 14:56 181/83 11/03/24 14:51 87 20 195/94 11/03/24 14:36 79 18 181/96 11/03/24 14:21 80 21 192/104 11/03/24 14:06 97.6 F 74 14 185/84 BP BP Pulse Ox 11/04/24 06:56 98 11/04/24 01:30 98 11/03/24 22:10 11/03/24 21:15 95 11/03/24 21:00 96 11/03/24 20:45 92 L 11/03/24 20:30 98 11/03/24 20:15 98 11/03/24 20:07 88 L 11/03/24 20:02 98 11/03/24 20:00 96 11/03/24 19:45 96 11/03/24 19:30 96 11/03/24 18:37 97 11/03/24 18:00 96 11/03/24 17:28 96 11/03/24 17:08 159/68 95 11/03/24 17:00 159/71 96 11/03/24 16:35 160/74 98 11/03/24 16:20 168/73 97 11/03/24 16:05 170/80 97 11/03/24 15:50 156/68 96 11/03/24 15:35 96 11/03/24 15:20 179/79 97 11/03/24 15:06 168/71 97 11/03/24 14:56 195/97 11/03/24 14:51 188/91 93 L 11/03/24 14:36 191/92 99 11/03/24 14:21 98 11/03/24 14:06 100 Intake and Output 11/03/24 11/04/24 11/04/24 22:59 06:59 14:59 Output Total 735 920 Balance -735 -920 Output: Drainage 220 Anterior Neck 60 Posterior Neck 160 Urine 625 700 Estimated Blood Loss 110 Other: Voiding Method Indwelling Catheter Weight 68.7 kg - Constitutional General appearance: cooperative, no acute distress - EENT Eyes: PERRLA - Neck neck brace in place - Respiratory Respiratory: bilateral: diminished - Cardiovascular Rhythm: regular Heart sounds: normal: S1, S2 - Gastrointestinal General gastrointestinal: soft, no tenderness - Integumentary Integumentary: normal, normal turgor - Neurologic Neurologic: CNII-XII intact - Psychiatric Psychiatric: A&O x's 3 Assessment and Plan (1) COPD (chronic obstructive pulmonary disease) Current Visit: No Status: Acute Code(s): J44.9 - CHRONIC OBSTRUCTIVE PULMONARY DISEASE, UNSPECIFIED SNOMED Code(s): 95347914 (2) Former smoker Current Visit: No Status: Acute Code(s): Z87.891 - PERSONAL HISTORY OF NICOTINE DEPENDENCE SNOMED Code(s): 1266403 (3) Hypertension Current Visit: No Status: Acute Code(s): I10 - ESSENTIAL (PRIMARY) HYPERTENSION SNOMED Code(s): 33788437 (4) GERD (gastroesophageal reflux disease) Current Visit: Yes Status: Acute Code(s): K21.9 - GASTRO-ESOPHAGEAL REFLUX DISEASE WITHOUT ESOPHAGITIS SNOMED Code(s): 012241613 (5) Status post cervical spinal fusion Current Visit: Yes Status: Acute Code(s): Z98.1 - ARTHRODESIS STATUS SNOMED Code(s): 9091961181897 (6) Cervical stenosis of spine Current Visit: Yes Status: Acute Code(s): M48.02 - SPINAL STENOSIS, CERVICAL REGION SNOMED Code(s): 01697655 Plan: Continue home medications. Restart patient's Ziac for blood pressure control. Continue to follow surgeon's postop instructions. Patient seen and evaluated by nurse practitioner, physician in agreement with plan.
[2024-11-04 08:49] LABS: BUN/Creat Ratio 13.29 Ratio (12.00-20.00); Blood Urea Nitrogen 9.3 mg/dL (9.0-27.0); Calcium 8.5 mg/dL (8.7-10.3); Carbon Dioxide 27.5 mmol/L (21.6-31.8); Chloride 97 mmol/L (96-109); Glucose 148 mg/dL (70-110); Potassium 3.8 mmol/L (3.5-5.5); Sodium 134 mmol/L (135-145)
[2024-11-04 09:04] LABS: HCT 39.4 % (39.6-50.0); HGB 12.7 g/dL (13.0-17.0); MCH 27.3 pg (27.0-32.0); MCHC 32.2 g/dL (32.0-37.0); MCV 84.7 FL (80.0-97.0); Mean Platelet Volume 11.9 FL (9.5-12.2); NRBC Per 100 WBC 0 X 10*3/uL (0.00-0.01); Platelet Count 225 X 10*3/uL (140-440); RBC 4.65 X 10*6/uL (4.40-5.60); RDW 14.1 % (11.5-14.5); WBC 22.09 X 10*3/uL (4.50-10.00)
[2024-11-04 10:31] LABS: Basophils # (A) 0.04 X 10*3/uL (0.00-0.10); Basophils % (A) 0.2 %; Eosinophils # (A) 0 X 10*3/uL (0.04-0.35); Eosinophils % (A) 0 %; Lymphocytes # (A) 1.94 X 10*3/uL (0.90-5.00); Lymphocytes % (A) 8.8 %; Monocytes # (A) 1.79 X 10*3/uL (0.20-1.00); Monocytes % (A) 8.1 %; Neutrophils % (A) 82.4 %
[2024-11-04] MEDS: buPROPion XL 300 MG TAB.ER.24H PO SCH (10:57)
[2024-11-04] MEDS: MULTIVITAMINS, THERA 1 EACH TAB PO SCH (10:57)
[2024-11-04] MEDS: CHOLECALCIFEROL 25 MCG (1000 IU) TABLET PO SCH (10:57)
[2024-11-04] MEDS: ASCORBIC ACID 500 MG TAB PO SCH (10:57)
[2024-11-04] MEDS: PANTOPRAZOLE 40 MG TABLET PO SCH (10:57)
[2024-11-04] MEDS: CALCIUM CARBONATE 500 MG CHEWABLE PO SCH (10:57)
[2024-11-04] MEDS: ESCITALOPRAM 10 MG TAB PO SCH (10:58)
[2024-11-04] MEDS: BISOPROLOL-HCTZ 5-6.25 MG 1 EACH TAB PO SCH (10:58)
--- NOTE | 2024-11-04 11:08 | CT ---
EXAMINATION TYPE: CT cervical spine wo con, CT thoracic spine wo con CT DLP: 393.2 (accession [id number]), 1803.7 (accession [id number]) mGycm, Automated exposure control for dose reduction was used. DATE OF EXAM: 11/04/2024 10:47 AM COMPARISON: Cervical spine fluoroscopic images 11/03/2024, MR cervical spine 05/27/2024. CLINICAL INDICATION:Male, 74 years old with history of s/p C2-C7 ACDF and C2-T2 post. cerv. decompr f us; PHH, post op. Pain TECHNIQUE: Axial CT images of the cervical and thoracic spinal cord obtained without intravenous cont rast. Coronal and sagittal reformatted images were also reviewed. FINDINGS: Postsurgical changes from ACDF C2-C7 and C2-T1 posterior cervical decompression fusion. There is surr ounding gas and edema identified. Anterior cervical hardware at C2-C3, C3-C4, C4-C5 and also C6-C7 wi th disc spacers. Posterior pedicular screws and rods bilaterally identified with laminectomy at C2-T1 . Hardware appears intact with appropriate alignment. No acute fracture. Gas tracks into the anterior and lateral right neck fascial tissues. Posterior midline cutaneous skin augustin identified. A right posterior neck approach drainage catheter identified with distal tip terminating within the laminect ricardo bed at C7. A right anterior approach drainage catheter identified terminating within the preverte bral space at the C4 level. No definitive organized fluid collection. Partial visualization of thoracolumbar fusion hardware involving T10 through the visualized lumbar sp ine. Hardware appears intact with appropriate alignment. Multilevel degenerative disc disease of the thoracic spine. No visualized significant central canal stenosis. Varying degrees of multilevel neura l foraminal stenosis bilaterally. Postsurgical changes identified within the left neck with multiple surgical clips identified. Bilater al carotid bulb calcifications. Paraseptal emphysematous changes within the bilateral visualized uppe r lobes. IMPRESSION: Postsurgical changes from ACDF C2-C7 and C2-T1 posterior cervical decompression fusion as described shirley prince. No CT evidence of significant complication. [facility], , 11/04/2024 11:06 AM
[2024-11-04] MEDS: CYCLOBENZAPRINE 5 MG TAB PO SCH (15:56)
[2024-11-04] MEDS: HYDROmorphone 0.5 MG/0.5 ML SYRINGE IVP PRN (15:57)
--- NOTE | 2024-11-05 07:03 | P.PN ---
Subjective Progress Note Date: 11/04/24 Principal diagnosis: 1. 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 CERVICAL MYELOPATHY 3. 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 C6-7 HNP WITH STENOSIS, SEVERE 6. UE PARESTHESIAS 7. UE WEAKNESS 8. COMPLEX MEDICAL PATIENT Patient seen and examined this morning. Patient was sitting up in chair at bedside. Patient does report that he is having significant pain, medications will be adjusted. Surgical incisions to the anterior and posterior cervical spine, dressings are intact with ESSENCE drain and Hemovac present and patent. Dressings will be changed tomorrow 11/05/2024. Patient does report that he has had improvement in his bilateral upper extremity radiculopathy and numbness and tingling since the procedure. Encourage patient to utilize ice packs on his shoulders to help alleviate some of the pain. Continue to encourage patient to be up in chair for all meals and use incentive spirometer at least 10 times per hour while awake. Objective - Vital Signs Vital signs: Vital Signs Temp 98.3 F 11/05/24 00:57 Pulse 97 11/05/24 00:57 Resp 15 11/05/24 00:57 BP 164/91 11/05/24 00:57 Pulse Ox 99 11/05/24 00:57 FiO2 Intake & Output 11/04/24 11/04/24 11/05/24 06:59 18:59 06:59 Intake Total 1080 Output Total 920 1200 720 Balance -920 -1200 360 Intake: Oral 1080 Output: Drainage 220 100 20 Anterior Neck 60 20 Posterior Neck 160 80 20 Urine 700 1100 700 Other: Voiding Method Indwelling Catheter Indwelling Catheter Indwelling Catheter # Bowel Movements 0 - Exam Physical Examination General: The patient is awake and alert, in no acute distress Skin: Skin is warm and dry with no obvious rashes or lesions. Surgical incision to the anterior cervical spine with ESSENCE present, surgical incision to the posterior cervical spine with Hemovac present; dressings are clean dry and intact. Eye: Pupils are equal, round and reactive to light, extra-ocular movements are intact; there is normal conjunctiva bilaterally. Neck: The neck is supple, there is moderate tenderness and limited range of motion due to surgical procedure and hard cervical collar intact. Cardiovascular: There is a regular rate and rhythm. No murmur, rub or gallop is appreciated. Respiratory: Respirations are non-labored, breath sounds are equal. Gastrointestinal: Soft, non-distended, non-tender abdomen. Back: There is no tenderness to palpation in the midline, paralumbar, parathoracic or buttocks region. There is no obvious deformity . Musculoskeletal: ROM limited secondary to pain and stiffness from surgical procedure. Right: Shoulder abduction 4/5, elbow flexors 4/5, wrist dorsiflexors 4/5. finger abductor 5/5, fmd teacher 5/5, hip flexor 5/5, knee flexor 5/5, ankle dorsiflexor 5/5, ankle plantarflexion 5/5 and extensor hallucis 5/5. Left: Shoulder abduction 4/5, elbow flexors 4/5, wrist dorsiflexors 4/5. finger abductor 5/5, fmd teacher 5/5, hip flexor 4-/5, knee flexor 4/5, ankle dorsiflexor 5/5, ankle plantarflexion 5/5 and extensor hallucis 5/5. Neurological: CN 2-12 intact. There are no obvious motor or sensory deficits. Movement and coordination equal and intact. Sensory exam to light touch intact C5-T1 and intact from L2-S1. Reflexes 2/4 in bilateral upper and lower extremities. Negative Hoffmans, babinski, and clonus signs. Psychiatric: Cooperative, appropriate mood & affect, normal judgment. - Labs CBC & Chem 7: 11/04/24 03:06 11/04/24 03:06 Labs: Abnormal Lab Results - Last 24 Hours (Table) 11/04/24 11/04/24 Range/Units 03:06 03:06 WBC 22.09 H (4.50-10.00) X 10*3/uL Hgb 12.7 L (13.0-17.0) g/dL Hct 39.4 L (39.6-50.0) % Immature Gran # 0.12 H (0.00-0.04) X 10*3/uL Neutrophils # 18.20 H (1.80-7.70) X 10*3/uL Monocytes # 1.79 H (0.20-1.00) X 10*3/uL Eosinophils # 0 L (0.04-0.35) X 10*3/uL Sodium 134 L (135-145) mmol/L Glucose 148 H (70-110) mg/dL Calcium 8.5 L (8.7-10.3) mg/dL Assessment and Plan Assessment: Postop day 1: Stage I C3-C7 ACDF, Stage II C2-T1 decompression and fusion Plan: -Appreciate advertising sales consultant and team management. -Activity: Ambulate QID, OOB all meals, up and about, limit lifting bending twisting to less than 5 lbs. Use walker or cane if needed for stability. -Daily PT/OT, increase ambulation strength and balance. -Hard cervical collar on at all times, patient may remove for showers -Pain control: Adequate at this time -Meds: reviewed -GI ppx: senna, Miralax -DC love when up and about, bedside commode if needed -DVT PPX: heparin may begin today -Hygiene: Maintain incision clean and dry. May change dressing as needed, please document in notes if performed. -Drains: Maintain for now. Continue to monitor and record output q shift. -Encourage IS 10x/hr -Dispo: Clinically pending *I reviewed and discussed this case with my attending Dr. Santiago, whom has reviewed this chart and films and is in agreement with assessment and plan of care as outlined above. I have personally seen and examined the patient, performed the documentation and the assessment and plan as written. Number of minutes spent on the visit: [ ].
--- NOTE | 2024-11-05 08:33 | P.PN ---
Subjective Progress Note Date: 11/05/24 Principal diagnosis: The patient is a 74-year-old white male essentially postop day #2 for cervical spinal repair. He states significant pain. He does not want to move aggressive ly. No bowel movement yet. But minimal p.o. intake. Tolerating fluids however. No significant chest pain per se. Still with Mota catheter. No cough or shortness of breath stated. Objective - Vital Signs Vital signs: Vital Signs Temp 97.9 F 11/05/24 07:42 Pulse 106 H 11/05/24 07:42 Resp 19 11/05/24 07:42 BP 148/72 11/05/24 07:42 Pulse Ox 98 11/05/24 07:42 FiO2 Intake & Output 11/04/24 11/05/24 11/05/24 18:59 06:59 18:59 Intake Total 1080 Output Total 1200 720 Balance -1200 360 Intake: Oral 1080 Output: Drainage 100 20 Anterior Neck 20 Posterior Neck 80 20 Urine 1100 700 Other: Voiding Method Indwelling Catheter Indwelling Catheter # Bowel Movements 0 - Constitutional General appearance: Present: average body habitus, cooperative, no acute distress - EENT Eyes: Absent: abnormal pupil - Neck Neck: Absent: lymphadenopathy - Respiratory Respiratory: bilateral: diminished - Cardiovascular Rhythm: regular Heart sounds: normal: S1, S2 Abnormal Heart Sounds: Absent: S3 Gallop - Gastrointestinal General gastrointestinal: Present: soft. Absent: tenderness - Integumentary Integumentary: Absent: cellulitis - Neurologic Neurologic Comment(s): Moving extremities properly. - Labs CBC & Chem 7: 11/04/24 03:06 11/04/24 03:06 Labs: Abnormal Lab Results - Last 24 Hours (Table) 11/04/24 11/04/24 Range/Units 03:06 03:06 WBC 22.09 H (4.50-10.00) X 10*3/uL Hgb 12.7 L (13.0-17.0) g/dL Hct 39.4 L (39.6-50.0) % Immature Gran # 0.12 H (0.00-0.04) X 10*3/uL Neutrophils # 18.20 H (1.80-7.70) X 10*3/uL Monocytes # 1.79 H (0.20-1.00) X 10*3/uL Eosinophils # 0 L (0.04-0.35) X 10*3/uL Sodium 134 L (135-145) mmol/L Glucose 148 H (70-110) mg/dL Calcium 8.5 L (8.7-10.3) mg/dL Assessment and Plan (1) GERD (gastroesophageal reflux disease) Current Visit: Yes Status: Acute Code(s): K21.9 - GASTRO-ESOPHAGEAL REFLUX DISEASE WITHOUT ESOPHAGITIS SNOMED Code(s): 568088792 (2) Status post cervical spinal fusion Current Visit: Yes Status: Acute Code(s): Z98.1 - ARTHRODESIS STATUS SNOMED Code(s): 4042094107436 (3) BPH with obstruction/lower urinary tract symptoms Current Visit: No Status: Acute Code(s): N40.1 - BENIGN PROSTATIC HYPERPLASIA WITH LOWER URINARY TRACT SYMP; N13.8 - OTHER OBSTRUCTIVE AND REFLUX UROPATHY SNOMED Code(s): 700963875 (4) COPD (chronic obstructive pulmonary disease) Current Visit: No Status: Acute Code(s): J44.9 - CHRONIC OBSTRUCTIVE PULMONARY DISEASE, UNSPECIFIED SNOMED Code(s): 96825135 (5) Constipation Current Visit: No Status: Acute Code(s): K59.00 - CONSTIPATION, UNSPECIFIED SNOMED Code(s): 97952387 (6) Former smoker Current Visit: No Status: Acute Code(s): Z87.891 - PERSONAL HISTORY OF NICOTINE DEPENDENCE SNOMED Code(s): 8898668 Plan: The patient will continue appropriate pain control per surgery. Increase ambulation. Anticipate DC Mota in the next 24 hours. Will continue to follow.
[2024-11-05 09:05] LABS: HCT 38.7 % (39.6-50.0); HGB 12.3 g/dL (13.0-17.0); MCH 27.3 pg (27.0-32.0); MCHC 31.8 g/dL (32.0-37.0); MCV 85.8 FL (80.0-97.0); Mean Platelet Volume 12.2 FL (9.5-12.2); NRBC Per 100 WBC 0 X 10*3/uL (0.00-0.01); Platelet Count 186 X 10*3/uL (140-440); RBC 4.51 X 10*6/uL (4.40-5.60); RDW 13.9 % (11.5-14.5); WBC 22.47 X 10*3/uL (4.50-10.00)
[2024-11-05] MEDS: CAFFEINE-SODIUM BENZOATE 500 MG in SODIUM CHLORIDE 0.9% 1,000 ML IVPB ONE (09:26)
[2024-11-05 09:30] LABS: ALT 20 U/L (10-49); AST 33 U/L (14-35); Albumin 3.7 g/dL (3.8-4.9); Albumin/Globulin Ratio 1.48 Ratio (1.60-3.17); Alkaline Phosphatase 85 U/L (41-126); BUN/Creat Ratio 15.17 Ratio (12.00-20.00); Blood Urea Nitrogen 9.1 mg/dL (9.0-27.0); Calcium 8.9 mg/dL (8.7-10.3); Carbon Dioxide 28.6 mmol/L (21.6-31.8); Chloride 94 mmol/L (96-109); Globulin 2.5 g/dL (1.6-3.3); Glucose 140 mg/dL (70-110); Sodium 132 mmol/L (135-145); Total Bilirubin 0.6 mg/dL (0.3-1.2); Total Protein 6.2 g/dL (6.2-8.2)
[2024-11-05] MEDS: SENNOSIDES-DOCUSATE SODIUM 1 EACH TAB PO SCH (10:29)
--- NOTE | 2024-11-05 12:10 | P.PN ---
Subjective Progress Note Date: 11/05/24 Principal diagnosis: 1. 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 CERVICAL MYELOPATHY 3. 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 C6-7 HNP WITH STENOSIS, SEVERE 6. UE PARESTHESIAS 7. UE WEAKNESS 8. COMPLEX MEDICAL PATIENT Patient seen and examined this morning. Patient is resting comfortably in bed. He does report that his pain is better than it was yesterday. Patient does have complaint of an upset stomach. Patient has been provided medication and has been encouraged to attempt to consume crackers. Patient also has complaint of an increased headache, IV caffeine has been ordered. Hemovac drain has been accidentally removed from the posterior cervical spine and sitting at the side of patient on the bed during assessment. Surgical incision to the anterior cervical spine with ESSENCE drain present, this will be removed and dressing will be changed later this afternoon. Surgical incision to the posterior cervical spine, dressing is intact, this will be changed later this afternoon. Continue to encourage patient to sit up in chair at bedside for all meals and to utilize the incentive spirometer at least 10 times per hour while awake. No acute concerns at this time. Objective - Vital Signs Vital signs: Vital Signs Temp 98.3 F 11/05/24 00:57 Pulse 97 11/05/24 00:57 Resp 15 11/05/24 00:57 BP 164/91 11/05/24 00:57 Pulse Ox 99 11/05/24 00:57 FiO2 Intake & Output 11/04/24 11/05/24 11/05/24 18:59 06:59 18:59 Intake Total 1080 Output Total 1200 720 Balance -1200 360 Intake: Oral 1080 Output: Drainage 100 20 Anterior Neck 20 Posterior Neck 80 20 Urine 1100 700 Other: Voiding Method Indwelling Catheter Indwelling Catheter # Bowel Movements 0 - Exam Physical Examination General: The patient is awake and alert, in no acute distress Skin: Skin is warm and dry with no obvious rashes or lesions. Surgical incision to the anterior cervical spine with ESSENCE present, surgical incision to the posterior cervical spine with Hemovac accidentally removed; dressings are clean dry and intact. Eye: Pupils are equal, round and reactive to light, extra-ocular movements are intact; there is normal conjunctiva bilaterally. Neck: The neck is supple, there is moderate tenderness and limited range of motion due to surgical procedure and hard cervical collar intact. Cardiovascular: There is a regular rate and rhythm. No murmur, rub or gallop is appreciated. Respiratory: Respirations are non-labored, breath sounds are equal. Gastrointestinal: Soft, non-distended, non-tender abdomen. Back: There is no tenderness to palpation in the midline, paralumbar, parathora cic or buttocks region. There is no obvious deformity . Musculoskeletal: ROM limited secondary to pain and stiffness from surgical procedure. Right: Shoulder abduction 4/5, elbow flexors 4/5, wrist dorsiflexors 4/5. finger abductor 5/5, book solicitor 5/5, hip flexor 5/5, knee flex or 5/5, ankle dorsiflexor 5/5, ankle plantarflexion 5/5 and extensor hallucis 5/5. Left: Shoulder abduction 4/5, elbow flexors 4/5, wrist dorsiflexors 4/5. finger abductor 5/5, book solicitor 5/5, hip flexor 4-/5, knee flexor 4/5, ankle dorsiflexor 5/5, ankle plantarflexion 5/5 and extensor hallucis 5/5. Neurological: CN 2-12 intact. There are no obvious motor or sensory deficits. Movement and coordination equal and intact. Sensory exam to light touch intact C5-T1 and intact from L2-S1. Reflexes 2/4 in bilateral upper and lower extremities. Negative Hoffmans, babinski, and clonus signs. Psychiatric: Cooperative, appropriate mood & affect, normal judgment. - Labs CBC & Chem 7: 11/05/24 03:57 11/05/24 03:57 Labs: Abnormal Lab Results - Last 24 Hours (Table) 11/04/24 11/04/24 Range/Units 03:06 03:06 WBC 22.09 H (4.50-10.00) X 10*3/uL Hgb 12.7 L (13.0-17.0) g/dL Hct 39.4 L (39.6-50.0) % Immature Gran # 0.12 H (0.00-0.04) X 10*3/uL Neutrophils # 18.20 H (1.80-7.70) X 10*3/uL Monocytes # 1.79 H (0.20-1.00) X 10*3/uL Eosinophils # 0 L (0.04-0.35) X 10*3/uL Sodium 134 L (135-145) mmol/L Glucose 148 H (70-110) mg/dL Calcium 8.5 L (8.7-10.3) mg/dL Assessment and Plan Assessment: Postop day 2: Stage I C3-C7 ACDF, Stage II C2-T1 decompression and fusion Plan: -Appreciate home planning consultant salesperson and team management. -Activity: Ambulate QID, OOB all meals, up and about, limit lifting bending twisting to less than 5 lbs. Use walker or cane if needed for stability. -Daily PT/OT, increase ambulation strength and balance. -Hard cervical collar on at all times, patient may remove for showers -Pain control: Adequate at this time -Meds: reviewed -GI ppx: senna, Miralax -DC love when up and about, bedside commode if needed -DVT PPX: heparin may begin today -Hygiene: Maintain incision clean and dry. May change dressing as needed, please document in notes if performed. -Drains: ESSENCE drain will be removed later this afternoon with dressing changes. -Encourage IS 10x/hr -Dispo: Clinically pending *I reviewed and discussed this case with my attending Dr. Santiago, whom has reviewed this chart and films and is in agreement with assessment and plan of care as outlined above. I have personally seen and examined the patient, performed the documentation and the assessment and plan as written. Number of minutes spent on the visit: 20m.
[2024-11-05] MEDS: guaiFENesin 600 MG TABLET.ER PO SCH (22:07)
[2024-11-06] MEDS: oxyCODONE-APAP 5-325MG 1 EACH TAB PO PRN (06:06)
[2024-11-06] MEDS: ALBUTEROL NEBULIZED 2.5 MG/3 ML INHALATION PRN (08:17)
--- NOTE | 2024-11-06 08:44 | P.PN ---
Subjective Progress Note Date: 11/06/24 This is a 74-year-old male who was admitted for extensive surgery with Dr. Santiago on cervical spine. Patient is status post C2-C7 ACDF and C2-T2 posterior cervical decompression fusion. Patient seen this morning sitting in chair at bedside. He reports a lot of pain. He is also having trouble with so me tongue swelling. 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 Blood pressure is elevated this morning. 11/06/2024 Patient seen this morning lying in bed. He is postop day #3. He reports pain is somewhat improving but he is still very uncomfortable. Mota catheter remains in place. Patient states he does not want catheter removed today, feels he will not be able to get up in time to use the restroom. He has not been wanting to increase his ambulation. Objective - Vital Signs Vital signs: Vital Signs Temp 98 F 11/06/24 07:34 Pulse 103 H 11/06/24 08:27 Resp 18 11/06/24 07:34 BP 181/89 11/06/24 07:34 Pulse Ox 100 11/06/24 08:20 FiO2 Intake & Output 11/05/24 11/06/24 11/06/24 18:59 06:59 18:59 Output Total 3200 750 Balance -3200 -750 Output: Urine 3200 750 Other: Voiding Method Toilet Indwelling Catheter # Bowel Movements 0 - Constitutional General appearance: Present: cooperative, no acute distress - EENT Eyes: Present: PERRLA - Neck Neck: Present: normal ROM. Absent: lymphadenopathy, rigidity - Respiratory Respiratory: bilateral: diminished - Cardiovascular Rhythm: regular Heart sounds: normal: S1, S2 - Gastrointestinal General gastrointestinal: Present: soft. Absent: tenderness - Integumentary Integumentary: Present: normal, normal turgor - Neurologic Neurologic Comment(s): Patient is able to move all extremities appropriately. - Psychiatric Psychiatric: Present: A&O x's 3 - Labs CBC & Chem 7: 11/05/24 03:57 11/05/24 03:57 Labs: Abnormal Lab Results - Last 24 Hours (Table) 11/05/24 11/05/24 Range/Units 03:57 03:57 WBC 22.47 H (4.50-10.00) X 10*3/uL Hgb 12.3 L (13.0-17.0) g/dL Hct 38.7 L (39.6-50.0) % MCHC 31.8 L (32.0-37.0) g/dL Sodium 132 L (135-145) mmol/L Chloride 94 L (96-109) mmol/L Glucose 140 H (70-110) mg/dL Albumin 3.7 L (3.8-4.9) g/dL Albumin/Globulin Ratio 1.48 L (1.60-3.17) Ratio Assessment and Plan (1) COPD (chronic obstructive pulmonary disease) Current Visit: No Status: Acute Code(s): J44.9 - CHRONIC OBSTRUCTIVE PULMONARY DISEASE, UNSPECIFIED SNOMED Code(s): 41591098 (2) Former smoker Current Visit: No Status: Acute Code(s): Z87.891 - PERSONAL HISTORY OF NICOTINE DEPENDENCE SNOMED Code(s): 1621459 (3) Hypertension Current Visit: No Status: Acute Code(s): I10 - ESSENTIAL (PRIMARY) HYPERTENSION SNOMED Code(s): 88783616 (4) GERD (gastroesophageal reflux disease) Current Visit: Yes Status: Acute Code(s): K21.9 - GASTRO-ESOPHAGEAL REFLUX DISEASE WITHOUT ESOPHAGITIS SNOMED Code(s): 972917877 (5) Status post cervical spinal fusion Current Visit: Yes Status: Acute Code(s): Z98.1 - ARTHRODESIS STATUS SNOMED Code(s): 1984839146833 (6) Cervical stenosis of spine Current Visit: Yes Status: Acute Code(s): M48.02 - SPINAL STENOSIS, CERVICAL REGION SNOMED Code(s): 97604376 Plan: Continue to follow surgeon's postop instructions. Discussion on importance of increasing ambulation. Anticipate discontinuing Mota catheter tomorrow morning. Patient seen and evaluated by nurse practitioner, physician in agreement with plan.
--- NOTE | 2024-11-06 08:51 | P.PN ---
Subjective Progress Note Date: 11/06/24 Principal diagnosis: 1. 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 CERVICAL MYELOPATHY 3. 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 C6-7 HNP WITH STENOSIS, SEVERE 6. UE PARESTHESIAS 7. UE WEAKNESS 8. COMPLEX MEDICAL PATIENT Patient seen and examined this morning. Patient is sitting at bedside eating breakfast, tolerating well. Patient does report that he has been coughing up phlegm, medical physician ordered Mucinex. Patient does report that his pain is being managed on current regimen. Encourage patient to utilize oral medication versus IV For pain management. Informed patient to trial ice packs along his shoulders to assist with additional inflammation. Patient verbalizes understanding. Surgical incision to the anterior and posterior cervical spine, dressings are clean dry and intact with [place] hard collar intact. Overall patient states he is doing well and has noticed improvement of his bilateral upper extremity radiculopathy since the procedure. Patient states he has been working with physical therapy and has been ambulating within room. Continue to encourage use of incentive spirometer 10 times per hour while awake. No acute concerns. Objective - Vital Signs Vital signs: Vital Signs Temp 97.6 F 11/06/24 01:07 Pulse 99 11/06/24 01:07 Resp 17 11/06/24 01:07 BP 153/88 11/06/24 01:07 Pulse Ox 96 11/06/24 01:07 FiO2 Intake & Output 11/05/24 11/06/24 11/06/24 18:59 06:59 18:59 Output Total 3200 750 Balance -3200 -750 Output: Urine 3200 750 Other: Voiding Method Toilet Indwelling Catheter # Bowel Movements 0 - Exam Physical Examination General: The patient is awake and alert, in no acute distress Skin: Skin is warm and dry with no obvious rashes or lesions. Surgical incision to the anterior and posterior cervical spine dressings are clean dry and intact with [place] hard collar in place. Eye: Pupils are equal, round and reactive to light, extra-ocular movements are intact; there is normal conjunctiva bilaterally. Neck: The neck is supple, there is moderate tenderness and limited range of motion due to surgical procedure and hard cervical collar intact. Cardiovascular: There is a regular rate and rhythm. No murmur, rub or gallop is appreciated. Respiratory: Respirations are non-labored, breath sounds are equal. Gastrointestinal: Soft, non-distended, non-tender abdomen. Back: There is no tenderness to palpation in the midline, paralumbar, parathoracic or buttocks region. There is no obvious deformity . Musculoskeletal: ROM limited secondary to pain and stiffness from surgical procedure. Right: Shoulder abduction 4/5, elbow flexors 4/5, wrist dorsiflexors 4/5. finger abductor 5/5, manager of creative services 5/5, hip flexor 5/5, knee flexor 5/5, ankle dorsiflexor 5/5, ankle plantarflexion 5/5 and extensor hallucis 5/5. Left: Shoulder abduction 4/5, elbow flexors 4/5, wrist dorsiflexors 4/5. finger abductor 5/5, manager of creative services 5/5, hip flexor 5/5, knee flexor 5/5, ankle dorsiflexor 5/5, ankle plantarflexion 5/5 and extensor hallucis 5/5. Neurological: CN 2-12 intact. There are no obvious motor or sensory deficits. Movement and coordination equal and intact. Sensory exam to light touch intact C5-T1 and intact from L2-S1. Reflexes 2/4 in bilateral upper and lower extremities. Negative Hoffmans, babinski, and clonus signs. Psychiatric: Cooperative, appropriate mood & affect, normal judgment. - Labs CBC & Chem 7: 11/05/24 03:57 11/05/24 03:57 Labs: Abnormal Lab Results - Last 24 Hours (Table) 11/05/24 11/05/24 Range/Units 03:57 03:57 WBC 22.47 H (4.50-10.00) X 10*3/uL Hgb 12.3 L (13.0-17.0) g/dL Hct 38.7 L (39.6-50.0) % MCHC 31.8 L (32.0-37.0) g/dL Sodium 132 L (135-145) mmol/L Chloride 94 L (96-109) mmol/L Glucose 140 H (70-110) mg/dL Albumin 3.7 L (3.8-4.9) g/dL Albumin/Globulin Ratio 1.48 L (1.60-3.17) Ratio Assessment and Plan Assessment: Postop day 3: Stage I C3-C7 ACDF, Stage II C2-T1 decompression and fusion Plan: -Appreciate behavioral health consultant and team management. -Activity: Ambulate QID, OOB all meals, up and about, limit lifting bending twisting to less than 5 lbs. Use walker or cane if needed for stability. -Daily PT/OT, increase ambulation strength and balance. -Hard cervical collar on at all times, patient may remove for showers -Pain control: Adequate at this time -Meds: reviewed -GI ppx: senna, Miralax -DC love -DVT PPX: Aspirin 81m -Hygiene: Maintain incision clean and dry. May change dressing as needed, please document in notes if performed. -Encourage IS 10x/hr -Dispo: Anticipate possible discharge home with homecare within the next 24 to 48 hours *I reviewed and discussed this case with my attending Dr. Santiago, whom has reviewed this chart and films and is in agreement with assessment and plan of care as outlined above. I have personally seen and examined the patient, performed the documentation and the assessment and plan as written. Number of minutes spent on the visit: 20m.
[2024-11-06] MEDS: ASPIRIN 81 MG PO SCH (09:28)
[2024-11-06] MEDS: CYCLOBENZAPRINE 10 MG TAB PO SCH (09:29)
--- NOTE | 2024-11-07 08:39 | P.PN ---
Subjective Principal diagnosis: The patient is a 74-year-old white male essentially postop day #4 for cervical spinal repair. He states significant pain. He does not want to move aggressively. Mota catheter has been discontinued. Pain medication is being titrated. He appears much more comfortable than 2 days ago. No significant chest pain per se. Still with Mota catheter. No cough or shortness of breath stated. Objective - Vital Signs Vital signs: Vital Signs Temp 97.6 F 11/07/24 07:11 Pulse 114 H 11/07/24 07:11 Resp 15 11/07/24 07:11 BP 154/82 11/07/24 07:11 Pulse Ox 94 L 11/07/24 08:19 FiO2 Intake & Output 11/06/24 11/07/24 11/07/24 18:59 06:59 18:59 Output Total 650 600 Balance -650 -600 Output: Urine 650 600 Other: Voiding Method Indwelling Catheter Urinal # Voids 1 - Constitutional General appearance: Present: average body habitus, cooperative, no acute distress - EENT Eyes: Absent: abnormal pupil - Neck Neck: Absent: lymphadenopathy - Respiratory Respiratory: bilateral: CTA - Cardiovascular Rhythm: regular Heart sounds: normal: S1, S2 Abnormal Heart Sounds: Absent: S3 Gallop - Gastrointestinal General gastrointestinal: Present: soft. Absent: tenderness - Labs CBC & Chem 7: 11/05/24 03:57 11/05/24 03:57 Assessment and Plan (1) GERD (gastroesophageal reflux disease) Current Visit: Yes Status: Acute Code(s): K21.9 - GASTRO-ESOPHAGEAL REFLUX DISEASE WITHOUT ESOPHAGITIS SNOMED Code(s): 579378699 (2) Status post cervical spinal fusion Current Visit: Yes Status: Acute Code(s): Z98.1 - ARTHRODESIS STATUS SNOMED Code(s): 6941401129724 (3) BPH with obstruction/lower urinary tract symptoms Current Visit: No Status: Acute Code(s): N40.1 - BENIGN PROSTATIC HYPERPLASIA WITH LOWER URINARY TRACT SYMP; N13.8 - OTHER OBSTRUCTIVE AND REFLUX UROPATHY SNOMED Code(s): 175061954 (4) COPD (chronic obstructive pulmonary disease) Current Visit: No Status: Acute Code(s): J44.9 - CHRONIC OBSTRUCTIVE PULMONARY DISEASE, UNSPECIFIED SNOMED Code(s): 60114469 (5) Constipation Current Visit: No Status: Acute Code(s): K59.00 - CONSTIPATION, UNSPECIFIED SNOMED Code(s): 31440843 (6) Former smoker Current Visit: No Status: Acute Code(s): Z87.891 - PERSONAL HISTORY OF NICOTINE DEPENDENCE SNOMED Code(s): 5090529 Plan: The patient will continue appropriate pain control per surgery. Increase ambulation. Anticipate discharge in the next 24 hours. Patient appears much more comfortable today..
--- NOTE | 2024-11-07 08:55 | P.PN ---
Subjective Progress Note Date: 11/07/24 Principal diagnosis: 1. 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 CERVICAL MYELOPATHY 3. 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 C6-7 HNP WITH STENOSIS, SEVERE 6. UE PARESTHESIAS 7. UE WEAKNESS 8. COMPLEX MEDICAL PATIENT Patient seen and examined this morning. Patient is sitting at bedside eating breakfast. Patient continues to report excessive phlegm, medical physician did order Mucinex. Patient states that he continues to have a constant aching cervical pain that radiates across the shoulders. Medications have been adjusted. Informed patient to lean more towards oral pain medication versus IV due to the possibility of discharge later today. Patient reports that he is looking forward to possible discharge. Surgical incision to the anterior and posterior cervical spine are clean dry and intact with Drums hard collar in place. Continue to encourage patient to increase his activity and to be up in chair for all meals. We will reassess patient's pain control this afternoon for possible discharge. Objective - Vital Signs Vital signs: Vital Signs Temp 97.6 F 11/07/24 07:11 Pulse 114 H 11/07/24 07:11 Resp 15 11/07/24 07:11 BP 154/82 11/07/24 07:11 Pulse Ox 94 L 11/07/24 08:19 FiO2 Intake & Output 11/06/24 11/07/24 11/07/24 18:59 06:59 18:59 Output Total 650 600 Balance -650 -600 Output: Urine 650 600 Other: Voiding Method Indwelling Catheter Urinal # Voids 1 - Exam Physical Examination General: The patient is awake and alert, in no acute distress Skin: Skin is warm and dry with no obvious rashes or lesions. Surgical incision to the anterior and posterior cervical spine dressings are clean dry and intact with Drums hard collar in place. Eye: Pupils are equal, round and reactive to light, extra-ocular movements are intact; there is normal conjunctiva bilaterally. Neck: The neck is supple, there is moderate tenderness and limited range of motion due to surgical procedure and hard cervical collar intact. Cardiovascular: There is a regular rate and rhythm. No murmur, rub or gallop is appreciated. Respiratory: Respirations are non-labored, breath sounds are equal. Gastrointestinal: Soft, non-distended, non-tender abdomen. Back: There is no tenderness to palpation in the midline, paralumbar, parathoracic or buttocks region. There is no obvious deformity . Musculoskeletal: ROM limited secondary to pain and stiffness from surgical procedure. Right: Shoulder abduction 4/5, elbow flexors 4/5, wrist dorsiflexors 4/5. finger abductor 5/5, brake lining driller 5/5, hip flexor 5/5, knee flexor 5/5, ankle dorsiflexor 5/5, ankle plantarflexion 5/5 and extensor hallucis 5/5. Left: Shoulder abduction 4/5, elbow flexors 4/5, wrist dorsiflexors 4/5. finger abductor 5/5, brake lining driller 5/5, hip flexor 5/5, knee flexor 5/5, ankle dorsiflexor 5/5, ankle plantarflexion 5/5 and extensor hallucis 5/5. Neurological: CN 2-12 intact. There are no obvious motor or sensory deficits. Movement and coordination equal and intact. Sensory exam to light touch intact C5-T1 and intact from L2-S1. Reflexes 2/4 in bilateral upper and lower extremities. Negative Hoffmans, babinski, and clonus signs. Psychiatric: Cooperative, appropriate mood & affect, normal judgment. - Labs CBC & Chem 7: 11/05/24 03:57 11/05/24 03:57 Assessment and Plan Assessment: Postop day 4: Stage I C3-C7 ACDF, Stage II C2-T1 decompression and fusion Plan: -Appreciate property consultant and team management. -Activity: Ambulate QID, OOB all meals, up and about, limit lifting bending twisting to less than 5 lbs. Use walker or cane if needed for stability. -Daily PT/OT, increase ambulation strength and balance. -Hard cervical collar on at all times, patient may remove for showers -Pain control: Medications have been adjusted -Meds: reviewed -GI ppx: senna, Miralax -DVT PPX: Aspirin 81m -Hygiene: Maintain incision clean and dry. May change dressing as needed, please document in notes if performed. -Encourage IS 10x/hr -Dispo: Anticipate possible discharge home with homecare latr today *I reviewed and discussed this case with my attending Dr. Santiago, whom has reviewed this chart and films and is in agreement with assessment and plan of care as outlined above. I have personally seen and examined the patient, performed the documentation and the assessment and plan as written. Number of minutes spent on the visit: 20m.
[2024-11-07 08:57] LABS: ALT 19 U/L (10-49); AST 30 U/L (14-35); Albumin 3.2 g/dL (3.8-4.9); Albumin/Globulin Ratio 1.33 Ratio (1.60-3.17); Alkaline Phosphatase 74 U/L (41-126); BUN/Creat Ratio 17.33 Ratio (12.00-20.00); Blood Urea Nitrogen 10.4 mg/dL (9.0-27.0); Calcium 8.5 mg/dL (8.7-10.3); Carbon Dioxide 32.7 mmol/L (21.6-31.8); Chloride 98 mmol/L (96-109); Globulin 2.4 g/dL (1.6-3.3); Glucose 110 mg/dL (70-110); Potassium 3.5 mmol/L (3.5-5.5); Sodium 140 mmol/L (135-145); Total Bilirubin 0.6 mg/dL (0.3-1.2); Total Protein 5.6 g/dL (6.2-8.2)
[2024-11-07 08:59] LABS: HCT 35.4 % (39.6-50.0); HGB 10.7 g/dL (13.0-17.0); MCH 26.6 pg (27.0-32.0); MCHC 30.2 g/dL (32.0-37.0); MCV 87.8 FL (80.0-97.0); Mean Platelet Volume 12.4 FL (9.5-12.2); NRBC Per 100 WBC 0 X 10*3/uL (0.00-0.01); Platelet Count 161 X 10*3/uL (140-440); RBC 4.03 X 10*6/uL (4.40-5.60); RDW 13.5 % (11.5-14.5); WBC 14.59 X 10*3/uL (4.50-10.00)
[2024-11-07] MEDS: oxyCODONE-APAP 10-325MG 1 EACH TAB PO SCH (10:15)
--- NOTE | 2024-11-07 12:33 | P.DS ---
Providers Date of admission: 11/03/24 05:40 Expected date of discharge: 11/07/24 Attending physician: Meir Santiago DO Consults: 11/03/24 14:02 Consult Physician Routine Consulting Provider: Carroll Monterroso Consult Reason/Comments: medical management s/p C2-C7 ACDF and C2-T2 post. cerv. decompr fus Do you want consulting provider notified?: Yes Primary care physician: Carroll Monterroso Hospital Course: hospital Course: The patient was evaluated preoperatively and found to have the diagnosis of Cervical spondylosis with stenosis. They underwent appropriate preoperative care and were willing to undergo the intended procedure. They underwent a successful stage I: C3-C7 ACDF, stage II: C2-T1 decompression and fusion were recovered appropriately and sent to the floor. While on the floor they worked with physical therapy, occupational therapy and nursing to enhance their recovery experience. Their pain was well controlled through their stay and they were started on appropriate medications, DVT ppx modalities, activity and dietary needs. Daily labs were monitored closely, and transfusions were only used when necessary. Medicine as well as other consulting services have made their input and have helped with our team approach and multidisciplinary care. PT milestones have been met and passed and they have made the recommendation of home with homecare for this patient and treating providers agree with this care path. The patient will be discharged home with appropriate medications, instructions and follow-up information and in stable condition. Patient Condition at Discharge: Good Plan - Discharge Summary Discharge Rx Participant: Yes New Discharge Prescriptions: New Aspirin [Adult Low Dose Aspirin EC] 81 mg PO DAILY #14 tab Cyclobenzaprine [Flexeril] 10 mg PO TID #60 tab Gabapentin [Neurontin] 300 mg PO TID #90 cap Sennosides/Docusate Sodium [Senna Plus 8.6-50 mg Tablet] 2 each PO DAILY PRN #40 tab PRN Reason: Constipation Sulfamethox-Tmp 800-160Mg [Bactrim DS 800-160 mg] 1 tab PO Q12HR #28 tab oxyCODONE HCL/ACETAMINOPHEN [Percocet 10-325 mg] 1 tab PO Q4HR PRN #40 tab PRN Reason: Pain No Action Multivitamins, Thera [Multivitamin] 1 tab PO DAILY Omeprazole [PriLOSEC] 40 mg PO DAILY Cholecalciferol [Vitamin D3 (25 Mcg = 1000 Iu)] 25 mcg PO DAILY Aspirin EC [Ecotrin Low Dose] 81 mg PO HS Vitamin C (Unknown Dose) 1 tab PO DAILY Calcium Carbonate [Calcium] 600 mg PO DAILY Gabapentin 300 mg PO TID 10 Days #30 cap Albuterol Nebulized [Ventolin Nebulized] 2.5 mg INHALATION Q6H PRN PRN Reason: Shortness Of Breath Ipratropium [place] 0.06%Nasal [Atrovent Nasal 0.06%] 2 spray EA NOSTRIL QID PRN PRN Reason: Difficulty breathing Discharge Medication List Multivitamins, Thera [Multivitamin] 1 tab PO DAILY 04/06/16 [History] Omeprazole [PriLOSEC] 40 mg PO DAILY 10/19/20 [History] Aspirin EC [Ecotrin Low Dose] 81 mg PO HS 11/29/20 [History] Cholecalciferol [Vitamin D3 (25 Mcg = 1000 Iu)] 25 mcg PO DAILY 11/29/20 [History] Vitamin C (Unknown Dose) 1 tab PO DAILY 12/20/22 [History] Albuterol Nebulized [Ventolin Nebulized] 2.5 mg INHALATION Q6H PRN 12/22/22 [History] Calcium Carbonate [Calcium] 600 mg PO DAILY 08/22/23 [History] Ipratropium [place] 0.06%Nasal [Atrovent Nasal 0.06%] 2 spray EA NOSTRIL QID PRN 08/22/23 [History] Gabapentin 300 mg PO TID 10 Days #30 cap 09/04/23 [Rx] Aspirin [Adult Low Dose Aspirin EC] 81 mg PO DAILY #14 tab 11/07/24 [Rx] Cyclobenzaprine [Flexeril] 10 mg PO TID #60 tab 11/07/24 [Rx] Gabapentin [Neurontin] 300 mg PO TID #90 cap 11/07/24 [Rx] Sennosides/Docusate Sodium [Senna Plus 8.6-50 mg Tablet] 2 each PO DAILY PRN #40 tab 11/07/24 [Rx] Sulfamethox-Tmp 800-160Mg [Bactrim DS 800-160 mg] 1 tab PO Q12HR #28 tab 11/07/24 [Rx] oxyCODONE HCL/ACETAMINOPHEN [Percocet 10-325 mg] 1 tab PO Q4HR PRN #40 tab 01/27 [Rx] Follow up Appointment(s)/Referral(s): Carroll Monterroso MD [Primary Care Provider] - 1 Week Meir Santiago DO [Doctor of Osteopathic Medicine] - 2 Weeks Activity/Diet/Wound Care/Special Instructions: spine Discharge and Recovery Instructions Date of Surgery: 11/03/2024 Diagnosis: cervical spondylosis with stenosis Procedure: stage I: C3-C7 ACDF, stage II: C2-T1 decompression and fusion Medications: See medication list All medication refills should be obtained through your primary care doctor or your clinic spine surgeon. Please discuss prescription refills at your follow up appointment. Do not call the hospital for medication refills. Activity: Encourage ambulation with assist of walker, Up and about 6-8x daily PT/OT daily work on balance, strength and mobility Up in chair with all meals Shower daily Brace: Use brace when up and about, do not wear in bed or shower Dressing: Leave your dressing in place for a total of 3 days post operatively. Then you may remove your dressing and leave open to air. Keep the area clean and if not able to keep area clean, then cover with sterile gauze and tape. Showering: You may shower 3 days after your procedure allowing soap and water to run over incision. Do not scrub. Do not soak. Blot dry. Follow up: Please confirm a follow up appointment with your surgeon 2 weeks post operatively. Please make an appointment to follow up with your PCP in 1-2 weeks after surgery for evaluation '3 phase, 3-week plan' POST OP WEEKS 1-3 1. Lifting/carrying/pushing/pulling limited to less than 5 pounds. 2. Do not sit for longer than 15 minutes at one time. Get up and walk around. Prolonged sitting is NOT advised. If you lay down, see if you can tolerate laying down on you front (belly side) 3. Walk for periods of 15 minutes = 1 mile but no longer; do it multiple times times each day. 4. Ice your low back after activity. POST OP WEEKS 3-6 1. Lifting limited to less than 20 pounds. 2. Do not sit for longer than 30 minutes at a time. Frequently change positions. Use a sit-to stand workstation or take frequent breaks from sitting if you have returned to work. 3. Walk for 30 minutes each day. If possible, do these three or more times a day POST OP WEEKS 6+ At your 6-week appointment we will give you a physical therapy referral to focus on a core stabilization and strengthening program. You should also work on leg & buttock strengthening, hamstring & quadriceps stretching, and continue a low impact aerobic activity program such as swimming, walking, or riding a stationary bicycle. During the initial 6 weeks after your surgery, you are at the highest risk of re-injuring your spine. You should generally avoid BLT's (bending, lifting and twisting combination motions) and follow the above guidelines to reduce the chance of reinjury. You can anticipate post op appointments in our office at approximately 3 weeks and 6 weeks after your surgery. INCISION CARE: If your incision is not draining you do NOT need to cover it with a dressing. Keep your incision clean, dry and intact. In most cases, we apply skin glue, augustin or sutures to the incision at the time of surgery. This will be like a crust or have the appearance of a scab and will fall off in time on its own. The stitches or augustin need to be removed at 3 weeks post op appointment. You may begin to shower 3 days after surgery (this allows the glue to guo well). However, please avoid scrubbing the incision site or peeling off any of the skin glue. This will ensure optimal healing of your incision. Also, during this time avoid soaking the incision area in water - this includes swimming pools, hot tubs or baths. No ointments, lotions or oils on the incision until your surgeon allows. Leave augustin, sutures or glue in place. Neurological dysfunction that comes on suddenly can also be a sign of a stroke. Below some common symptoms of a stroke are listed: B - balance difficulty such as sudden onset walking or leaning to one side - NEW E - eye problem such as sudden double vision or trouble seeing on one side - NEW F - Facial weakness or numbness on one side - NEW A - Arm or leg weakness or numbness on one side - NEW S - Slurred speech or difficulty with word finding - NEW T - Time is BRAIN! Call 911 as soon as you recognize these symptoms Diet: Consume a regular diet rich in vegetables and lean protein such as chicken or fish. You should consume in a ratio of approximately 20% fats|40% carbohydrates|40%protein. Vegetables, sweet potatoes, brown rice or quinoa are examples of good carbohydrates. Chips, white bread, cookies and sweets/sugar are examples of bad carbohydrates. Limit your bad carbs, go wild with good carbs. "Life's Simple 7" Guidelines as per [place] [employer] These will help you reclaim your life after surgery and lead caster helper in your recovery, keeping in mind your restrictions. (1) Get Active. Physical activity can help people lose weight, control high blood pressure and cholesterol, feel emotionally better, and sleep better. (2) Control Cholesterol. Avoid a diet high in saturated fat, trans fat, & cholesterol. Limit whole milk & cream, ice cream, butter, egg yolks, processed meats (like sausage and hot dogs), and fatty meats. Choose healthy foods that are low in saturated fat, trans fat and cholesterol which include: Fruits and vegetables, fiber rich grain products (like whole grain pasta and brown rice), lean meat such as chicken, fish, nuts, seeds, and legumes. (3) Eat Better. Eat small portions. Shop at the grocery with a list and do not stray from it. Tips for a healthy diet include: Limit sodium intake to less than 1500mg daily, avoid prepackaged, processed, and fast foods, choose a diet rich in fruits, vegetables, and whole grain, high fiber foods, and limit saturated & cholesterol in your diet. (4) Manage Blood Pressure. If you have high blood pressure, you should have a c uff at home so that you can check your blood pressure regularly. Be sure you have a good cuff. An arm one is generally better than a wrist one. Bring the cuff to a doctor's appointment to validate that the measurements that your cuff are taking are accurate. Take your blood pressure twice daily when you are sitting down and relaxing. Record the numbers in a log and bring this log with you to your doctors' appointments. (5) Lose Weight if your BMI is above 25. A healthy BMI is between 19-25. To calculate Your BMI, you may use a Standard BMI Calculator on the NIH BMI website: <www.nhlbi.nih.gov/guidelines/obesity/BMI/bmicalc.htm>. Weigh oneself daily. If you are overweight, set a goal to lose weight. A pound a week loss if needed is a good target. (6) Reduce Blood Sugar. Limit foods and liquids with "added sugars." (Added sugars include sucrose, fructose, glucose, maltose, dextrose, high fructose corn syrup, corn syrup, concentrated fruit juice and honey). (7) Stop Smoking. If you smoke, quitting smoking is one of the best things that you can do for your health. Smoking increases your risk of heart attack, stroke, and peripheral vascular disease, which is a build-up of plaque in your arteries. Please discard all the cigarettes and lighters in your house. Have a plan for what you will do when you have the urge to smoke. Direct and second- hand smoke shortens your life as well as the lives of your family, friends and others around you. For your health and the health of those around you, please consider quitting! Proper Bending Body Mechanics: Maintain a wide stance with one foot slightly in front of the other. Keep your back straight. Bend utilizing the strength in your hips and knees. Do not bend at the waist. Maintain the lifted object at your waist-level close to your body. Avoid lifting weight that causes immediately pain or pain anywhere in the body afterwards. Smoking/Nicotine If there was ever one thing that you could do to increase your overall health, decrease your risk of cardiovascular problems by about 39% the second you make the choice, it is to STOP SMOKING. Your body's most instant gratification is the second you stop smoking. We have all heard the studies, read the articles but it is true, smoking is extremely bad for your overall health, and moreover it is detrimental to your bone health. Nicotine, IN ANY FORM, kills bone cells, prevents your body from healing fractures, and significantly prolongs healing after surgery. In spine surgery specifically, it increases your risk of not healing your bones to create a fusion and increases your risk of having a revision surgery due to this up to 60%. I know it is hard. I know it feels impossible. But there are ways. Take control of your life. We are here to help you through it. And when you are ready, ask us and we can direct you to help if you desire. Use the START Plan to Quit Smoking (please visit the HelpguLocalGuiding.org website listed below for more information): S = Set a quit date. Choose a date within the next 2 weeks, so you have enough time to prepare without losing your motivation to quit. If you mainly smoke at work, quit on the weekend, so you have a few days to adjust to the change. T = Tell family, friends, and co-workers that you plan to quit. Let your friends and family in on your plan to quit smoking and tell them you need their support and encouragement to stop. Look for a quit jada who wants to stop smoking as well. You can help each other get through the rough times. A = Anticipate and plan for the challenges you'll face while quitting. Most people who begin smoking again do so within the first 3 months. You can help yourself make it through by preparing ahead for common challenges, such as nicotine withdrawal and cigarette cravings. R = Remove cigarettes and other tobacco products from your home, car, and work. Throw away all your cigarettes (no emergency pack!), lighters, ashtrays, and matches. Wash your clothes and freshen up anything that smells like smoke. Shampoo your car, clean your drapes and carpet, and steam your furniture. T = Talk to your doctor about getting help to quit. Your doctor can prescribe medication to help with withdrawal and suggest other alternatives. If you can't see a doctor, you can get many products over the counter at your local pharmacy or grocery store, including the nicotine patch, nicotine lozenges, and nicotine gum. Resources for Quitting Smoking: <https ://www.[place].gov/documents/[facility]/Quit_Tobacco_Resources_for_patients_313480_7. pdf> Supplementation: Take recommended dosages of Vitamin D and Calcium to help fortify your bones and help them to heal. See your health maintenance packet for dosages and recommended levels. DVT/VTE prophylaxis: You will be given compression stockings from the hospital. Wear these daily for the first two weeks after surgery. You may take them off at night. You may be prescribed a medication to help thin your blood. Take this as directed. If you are not prescribed this medication, early and frequent ambulation has been shown to be the best prophylaxis to deep vein thrombosis and sequelae related to this event. Discharge Disposition: HOME WITH HOME HEALTH SERVICES
[2024-11-07 13:10] VITALS: BP 174/88; PULSE 102; RESP 16; TEMP 98
== END 2024-11-07 16:57 | disposition home health service (06) | DRG 430 ==
LOC: 2ORMAIN 11-03 05:40 → 4SSUR 11-03 14:51
PROVIDERS: ADMIT Orthopaedic Surgery; ATTEND Orthopaedic Surgery
PROC: 0RG6071 Fusion of Thoracic Vertebral Joint with Autologous Tissue Substitute, Posterior Approach, Posterior Column, Open Approach (ICD-10-PCS; 2024-11-03)
PROC: 0RT30ZZ Resection of Cervical Vertebral Disc, Open Approach (ICD-10-PCS; 2024-11-03)
PROC: 0RT50ZZ Resection of Cervicothoracic Vertebral Disc, Open Approach (ICD-10-PCS; 2024-11-03)
PROC: 0RT90ZZ Resection of Thoracic Vertebral Disc, Open Approach (ICD-10-PCS; 2024-11-03)
PROC: 01N10ZZ Release Cervical Nerve, Open Approach (ICD-10-PCS; 2024-11-03)
PROC: 8E09XBF Computer Assisted Procedure of Head and Neck Region, With Fluoroscopy (ICD-10-PCS; 2024-11-03)
PROC: 0RG20A0 Fusion of 2 or more Cervical Vertebral Joints with Interbody Fusion Device, Anterior Approach, Anterior Column, Open Approach (ICD-10-PCS; principal; 2024-11-03 07:30)
PROC: 0RG4071 Fusion of Cervicothoracic Vertebral Joint with Autologous Tissue Substitute, Posterior Approach, Posterior Column, Open Approach (ICD-10-PCS; 2024-11-03 07:30)
DX: M48.02 Spinal stenosis, cervical region (principal); M47.12 Other spondylosis with myelopathy, cervical region; M50.01 Cervical disc disorder with myelopathy, high cervical region; N13.8 Other obstructive and reflux uropathy; G95.89 Other specified diseases of spinal cord; M47.13 Other spondylosis with myelopathy, cervicothoracic region; M51.06 Intervertebral disc disorders with myelopathy, lumbar region; M53.2X2 Spinal instabilities, cervical region; N40.1 Benign prostatic hyperplasia with lower urinary tract symptoms; K21.00 Gastro-esophageal reflux disease with esophagitis, without bleeding; M47.22 Other spondylosis with radiculopathy, cervical region; M47.23 Other spondylosis with radiculopathy, cervicothoracic region; M51.16 Intervertebral disc disorders with radiculopathy, lumbar region; M48.03 Spinal stenosis, cervicothoracic region; J44.9 Chronic obstructive pulmonary disease, unspecified; I10 Essential (primary) hypertension; K59.00 Constipation, unspecified; E78.5 Hyperlipidemia, unspecified; F17.210 Nicotine dependence, cigarettes, uncomplicated; M43.12 Spondylolisthesis, cervical region; Z79.899 Other long term (current) drug therapy; Z86.73 Personal history of transient ischemic attack (TIA), and cerebral infarction without residual deficits; G89.29 Other chronic pain; K21.9 Gastro-esophageal reflux disease without esophagitis; Z86.16 Personal history of COVID-19; Z87.19 Personal history of other diseases of the digestive system
CPT/HCPCS: 72040; 72125; 72128; 80048; 80053; 85025; 85027; 86850; 86900; 86901; 94640; 94760